=== PATIENT | female | born 1960 | race Caucasian/White ===

== ENCOUNTER 2016-06-22 20:42 | Inpatient (IN) | payer OTHER, MEDICAID ==
[~2016-06-22] VITALS: Ht 167.6 cm; Wt 113.4 kg
[2016-06-22 20:45] VITALS: BP 132/87
[2016-06-22] MEDS ORDERED: LORazepam 2 MG/ML VIAL ONE (20:50)
--- NOTE | 2016-06-22 21:03 | NUR ---
ADMINISTERED IVP ATIVAN 2MG PER ER MD MC. PATIENT TOLERATED WELL. NEW IV TO LEFT WRIST G#22. WILL CONTINUE TO MONITOR AND REASSESS
--- NOTE | 2016-06-22 21:16 | NUR ---
PT TAKEN TO BED 2
--- NOTE | 2016-06-22 21:18 | NUR ---
Dr. Hamilton evaluating patient at bedside.
[2016-06-22] MEDS ORDERED: LORazepam 2 MG/ML VIAL IVP ONE (21:25)
[2016-06-22] MEDS ORDERED: NACL 0.9% 1,000 ML IV ONE (21:25)
[2016-06-22] MEDS ORDERED: ONDANSETRON 4 MG/2 ML VIAL IVP PRN (23:00)
[2016-06-22] MEDS ORDERED: ACETAMINOPHEN 325 MG TAB PO PRN (23:00)
[2016-06-22] MEDS ORDERED: HYDROcodone/APAP 5/325 MG 1 TAB TAB PO PRN (23:00)
--- NOTE | 2016-06-22 23:31 | NUR ---
PT WILL GO TO 111B AND FRANCK WILL BE THE RN. REPORT WILL BE GIVEN BY [facility] ER NURSE TO FRANCK
[2016-06-22] MEDS ORDERED: TOBRADEX 0.1%-01 OIN LEFT EYE (23:35)
[2016-06-22] MEDS ORDERED: LIORESAL10 MG PO (23:35)
[2016-06-22] MEDS ORDERED: CRANBERRY450 MG PO (23:35)
[2016-06-22] MEDS ORDERED: ROPINIROLE2 MG PO (23:35)
[2016-06-22] MEDS ORDERED: LORAZEPAM0.5 M1 PO (23:35)
[2016-06-22] MEDS ORDERED: VITAMIN C500 M8 PO (23:35)
[2016-06-22] MEDS ORDERED: SINGULAIR10 MG PO (23:35)
[2016-06-22] MEDS ORDERED: ADVAIR DISKUS 21 DSK IH (23:35)
[2016-06-22] MEDS ORDERED: SYNTHROID0.125 M1 PO (23:35)
[2016-06-22] MEDS ORDERED: TEMAZEPAM30 MG PO (23:35)
[2016-06-22] MEDS ORDERED: COMPAZINE5 M3 PO (23:35)
[2016-06-22] MEDS ORDERED: OXCARBAZEPINE150 M1 PO (23:35)
[2016-06-22] MEDS ORDERED: ESCITALOPRAM20 MG PO (23:35)
[2016-06-22] MEDS ORDERED: TOPCARE IBUPRO200 MG PO (23:35)
[2016-06-22] MEDS ORDERED: TOBRADEX 0.1%-01 OIN OP (23:35)
[2016-06-22] MEDS ORDERED: LEVETIRACETAM500 MG PO (23:35)
[2016-06-22] MEDS ORDERED: DICLOFENAC SOD100 GM TP (23:35)
[2016-06-22] MEDS ORDERED: NORCO 325 MG-51 TAB PO (23:35)
[2016-06-22] MEDS ORDERED: ACETAMINOPHEN325 M2 PO (23:35)
[2016-06-22] MEDS ORDERED: NEURONTIN400 MG PO (23:35)
[2016-06-22] MEDS ORDERED: FUROSEMIDE20 M1 PO (23:35)
--- NOTE | 2016-06-23 00:10 | NUR ---
ADMITTED 55 Y/O FEMALE FROM ER TO TELE UNIT AT 0000 AM VIA GURNEY WITH DX: PERSISTENT SEIZURE. INITIAL ASSESSMENT, BODY CHECK AND ADMISSION INTERVENTION DONE. PATIENT IS STILL DROWSY UPON ADMISSION, EYES OPEN ONLY TACTILE STIMULI WITH MUMBLING SPEECH. NO S/S OF DISTRESS OR SEIZURE NOTED UPON ADMISSION. PATIENT CURRENTLY ON 11 L/MIN NON-REBREATHER MASK. SKIN WARM/DRY TO TOUCH WITH NORMAL COLOR AND INTACT. DISCUSSED PLAN OF CARE, PAIN MANAGEMENT AND MEDICATION REGIMEN WITH PATIENT, BUT PATIENT UNABLE TO COMPREHENSIVE. PLACED PATIENT ON SAFETY/FALL/SEIZURE/ASPIRATION PRECAUTIONS AND WILL CONTINUE TO MONITOR WITH BED ALARM ON.
[2016-06-23 00:19] VITALS: BP 106/58
--- NOTE | 2016-06-23 00:49 | NUR ---
ROUNDS MADE, SEEN PATIENT RESTED QUIETLY IN BED WITH BOTH EYES CLOSED. NO EPISODE OF SEIZURE NOR DISTRESS NOTED. KEPT PATIENT IN COMFORTABLE POSITION/WARM AND WILL CONTINUE TO MONITOR CLOSELY.
--- NOTE | 2016-06-23 01:30 | NUR ---
WEAN PATIENT OFF FROM THE NON-REBREATHER MASK INTO NASAL CANULA AT 3 L/MIN. MONITOR FOR 15 MINS AND PATIENT TOLERATED WELL. O2 SATURATION REMAINS WITHIN 96-97 %. WILL CONTINUE TO MONITOR.
--- NOTE | 2016-06-23 04:10 | NUR ---
PATIENT IS CLINICALLY STABLE WITH UNCHANGED V/S. NO S/S OF DISTRESS NOR ANY POTENTIAL COMPLICATION NOTED. MAINTAINED PROPER BODY ALIGNMENT AND WILL CONTINUE TO MONITOR.
[2016-06-23 04:51] VITALS: BP 110/69
--- NOTE | 2016-06-23 07:11 | NUR ---
PATIENT STILL SLEEPING AND NO S/S OF SEIZURE OR DISTRESS NOTED. ENDORSED PLAN OF CARE TO PATSY MORENO, AT BEDSIDE.
--- NOTE | 2016-06-23 07:13 | NUR ---
RECEIVED REPORT FROM NIGHT RN. PT SLEEPING IN BED. AAOX3. NO S/S OF ACUTE DISTRESS. PT DENIES PAIN. IV SITE PATENT AND INTACT. PT REORIENTED TO ROOM. CALL LIGHT WITHIN REACH. SEIZURE PRECAUTIONS IN PLACE. BED ALARM ON. WILL CONTINUE TO MONITOR.
[2016-06-23 07:46] VITALS: BP 103/73
--- NOTE | 2016-06-23 08:53 | NUR ---
NOTIFIED BY AGRICULTURE LABORER PT HAVING SEIZURE. UPON ENTERING THE ROOM PT IS RESPONSIVE. NO S/S OF ACUTE DISTRESS. ATIVAN GIVEN. DR. DUMONT MADE AWARE. VITAL SIGNS STABLE. CALL LIGHT WITHIN REACH. SAFETY MEASURES ENSURED. BED ALARM ON. SEIZURE PRECAUTIONS IN PLACE. WILL CONTINUE TO MONITOR.
[2016-06-23] MEDS: LORazepam 2 MG/ML VIAL IVP PRN ×3 (08:57→18:13)
--- NOTE | 2016-06-23 09:06 | NUR ---
PATIENT HAS BEEN SCREENED AND CATEGORIZED HIGH NUTRITION RISK. PATIENT WILL BE SEEN WITHIN 1-2 DAYS OF ADMISSION. 06/23/16-06/24/[address]
[2016-06-23] MEDS: levETIRAcetam 1,000 MG in NACL 0.9% 100 ML IV SCH ×2 (09:46→21:09)
--- NOTE | 2016-06-23 09:57 | NUR ---
PT SLEEPING IN BED. NO S/S OF ACUTE DISTRESS. IV SITE PATENT AND INTACT. ON O2 3L NC. VSS. CALL LIGHT WITHIN REACH. SAFETY MEASURES ENSURED. BED ALARM ON. SEIZURE PRECAUTIONS IN PLACE. WILL CONTINUE TO MONITOR.
--- NOTE | 2016-06-23 10:15 | NUR ---
PT NOTE RECIEVED ORDER FOR PT EVAL. PER CHARGE NURSE Pt HAD A SEIZURE EPISODE; HOLD PT EVAL FOR TODAY PER RN. WILL FOLLOW UP W/Pt TOMORROW. PVE(1)
[2016-06-23 12:00] VITALS: BP 109/71
--- NOTE | 2016-06-23 12:05 | NUR ---
PT SLEEPING IN BED. NO S/S OF ACUTE DISTRESS. IV SITE PATENT AND INTACT. CALL LIGHT WITHIN REACH. WILL CONTINUE TO MONITOR.
--- NOTE | 2016-06-23 13:47 | NUR ---
PT RESTING IN BED. NO S/S OF ACUTE DISTRESS. PT DENIES PAIN. CALL LIGHT WITHIN REACH. WILL CONTINUE TO MONITOR.
--- NOTE | 2016-06-23 14:57 | NUR ---
INFORMED BY TAILINGS MAN PT IS HAVING WHAT APPEARS TO BE A SEIZURE. UPON ENTERING ROOM PT IS RESPONSIVE TO QUESTIONS. NO S/S OF ACUTE DISTRESS. PT DENIES PAIN. ATIVAN WILL BE ADMINISTERED. VSS. CALL LIGHT WITHIN REACH. WILL CONTINUE TO MONITOR.
--- NOTE | 2016-06-23 15:57 | NUR ---
PT SLEEPING IN BED. NO S/S OF ACUTE DISTRESS. ON O2 3L NC. CALL LIGHT WITHIN REACH. BED ALARM ON. SEIZURE PRECAUTIONS IN PLACE. WILL CONTINUE TO MONITOR.
[2016-06-23 16:00] VITALS: BP 113/73
--- NOTE | 2016-06-23 18:13 | NUR ---
PT STATES LEGS ARE CRAMPING WHICH HAPPENS BEFORE SHE HAS A SEIZURE. ATIVAN GIVEN. NO S/S OF ACUTE DISTRESS. PT DENIES PAIN. CALL LIGHT WITHIN REACH. WILL CONTINUE TO MONITOR.
--- NOTE | 2016-06-23 19:25 | NUR ---
ENDORSED PLAN OF CARE TO NIGHT RN. PT REMAINS IN STABLE CONDITION.
--- NOTE | 2016-06-23 19:30 | NUR ---
RECEIVED PT FROM JOSH GARNER PT IS AAOX4 COOPERATIVE IV ON RT HAND INFILTRATED ON TELEMETRY SR NOT SEIZUZRES ACTIVITY AT THIS TIME SITTER AT BED SIDE 0862 INITIAL ASSESSMENT DONE
[2016-06-23 20:00] VITALS: BP 105/59
[2016-06-23] MEDS ORDERED: LORazepam 0.5 MG TAB PO SCH (20:45)
[2016-06-23] MEDS ORDERED: TEMAZEPAM 15 MG CAP PO SCH (21:00)
[2016-06-23] MEDS ORDERED: rOPINIRole 1 MG TAB PO SCH ×2 (21:00→21:55)
[2016-06-23] MEDS ORDERED: MONTELUKAST SODIUM 10 MG TAB PO SCH (21:00)
[2016-06-23] MEDS ORDERED: FLUTICASONE 250 MCG/SALMETEROL 50 MCG DISK IH SCH (21:00)
--- NOTE | 2016-06-23 21:55 | NUR ---
AWAKE AND ALERT POSITION ON LEFT SIDE RESPONSIVE TO PACKAGING [employer]ERIALS INSPECTOR VERBAL COMMANDS ON SUPPLEMENTAL OXYGEN AT 2 LPM VIA NC PATIENT C/O OF NASAL DRYNESS WITH OXYGEN USE ADDED HUMIDIFIER EDUCATION PROVIDED TO PATIENT WITH ACKNOWLEDGEMENT ON INCENTIVE SPIROMETRY (IS) TOLERATED THERAPY WELL WITHOUT INCIDENT ENCOURAGED PATIENT TO USE IS EVERY TWO HOURS WHILE AWAKE Addendum: 06/23/16 at 2208 by Dheeraj Cisneros RT NO EVIDENCE OF RESPIRATORY DISTRESS NOTED METERED DOSE INHALER NOTE REQUIRED AT THIS TIME
--- NOTE | 2016-06-23 22:00 | NUR ---
PT RESTING ON BED REPOSITIOEND Q2H NOT SEIZURES ACTIVITY NOTED SITTER AT BED SIDE ON TELE SR
[2016-06-23] MEDS: BACLOFEN 10 MG TAB PO SCH (23:23)
[2016-06-24] VITALS: BP 105/65
--- NOTE | 2016-06-24 01:09 | NUR ---
PT SLEEPING WELL NOT DISTRESS NOTED NOT SEIZURES ACTIVITY, ON TELEMETRY SR
--- NOTE | 2016-06-24 02:00 | NUR ---
CT HEAD NEG PT SLEEPING WELL NOT SEIZURES ACTIVITY NOTED
[2016-06-24 04:00] VITALS: BP 103/60
[2016-06-24] MEDS ORDERED: LORazepam 0.5 MG TAB PO PRN (04:40)
[2016-06-24] MEDS: BACLOFEN 10 MG TAB PO SCH ×2 (04:47→13:25)
--- NOTE | 2016-06-24 05:37 | NUR ---
SPONGE BATH GIVEN LINEN CHANGED ON TELE SR REPOSITIONED Q2H NOT DISTRESS NOTED REMAIN STABLE
--- NOTE | 2016-06-24 06:21 | NUR ---
PT SLEEPING REMAIN STBLE NOT SEIZURES ACTIVITY NOTED ON TELEMETRY SR
[2016-06-24] MEDS ORDERED: LEVOTHYROXINE 0.025 MG TAB PO SCH (06:30)
--- NOTE | 2016-06-24 07:30 | NUR ---
RECEIVED PATIENT REPORT. PATIENT ASLEEP IN BED WITH NO S/S OF DISTRESS NOTED. IV LINE NOTED TO THE LEFT FOREARM SALINE LOCKED. PATIENT WITH 1:1 SITTER. PATIENT ON TELE MONITORING. BED LOWERED WITH CALL LIGHT WITHIN REACH. WILL CONTINUE TO MONITOR
[2016-06-24 08:00] VITALS: BP 110/68
[2016-06-24] MEDS ORDERED: OXcarbazepine 150 MG TAB PO SCH (09:00)
[2016-06-24] MEDS ORDERED: ASCORBIC ACID 500 MG TAB PO SCH (09:00)
[2016-06-24] MEDS ORDERED: ESCITALOPRAM 20 MG TAB PO SCH (09:00)
[2016-06-24] MEDS ORDERED: FUROSEMIDE 20 MG TAB PO SCH (09:00)
[2016-06-24] MEDS ORDERED: GABAPENTIN 100 MG CAP PO SCH (09:00)
[2016-06-24] MEDS: levETIRAcetam 1,000 MG in NACL 0.9% 100 ML IV SCH (09:24)
[2016-06-24 12:00] VITALS: BP 107/64
[2016-06-24] MEDS ORDERED: CHLORHEXADINE GLUC 2% CLOTH TP SCH (12:00)
[2016-06-24] MEDS ORDERED: MUPIROCIN 2% OINT 22 GM TUBE TP SCH (12:00)
--- NOTE | 2016-06-24 13:25 | NUR ---
RECEIVED REPORT FROM CLARE GARNER; PT RESTING COMFORTABLY IN BED, AAOX4, ABLE TO VERBALIZE NEEDS; NO C/O PAIN OR S/S ACUTE DISTRESS AT THIS TIME. ASSISTED PT TO REPOSITION FOR COMFORT. ROUTINE/PLAN OF CARE DISCUSSED AND REVIEWED, PT VERBALIZES UNDERSTANDING AND COMPLIANCE; PT BEING EVALUATED BY DR HOGUE AT BEDSIDE. IV TO RIGHT FA, SITE ASYMPTOMATIC. SEIZURE AND SAFETY PRECAUTIONS OBSERVED AND MAINTAINED, CALL LIGHT IN REACH. 1:1 SITTER. WILL CONTINUE TO MONITOR.
--- NOTE | 2016-06-24 14:17 | NUR ---
06/24/16 RD INITIAL ASSESSMENT COMPLETED PLEASE REFER TO NUTRITION ASSESSMENT UNDER CARE ACTIVITY FOR ESTIMATED NUTRITIONAL NEEDS. RD RECOMMENDATIONS: 1. CONTINUE CARDIAC DIET TOLERATED PER MD -- PT MEETING 100% OF ESTIMATED KCAL AND PROTEIN NEEDS 2. RD WILL F/U 5-7 DAYS; LOW RISK. KELSY COSBY RD
[2016-06-24 15:15] VITALS: BP 118/80
--- NOTE | 2016-06-24 15:21 | NUR ---
1350 CALLED AND SPOKE WITH CARLOS DIRECTOR OF [facility] AND PT HAS BEEN ACCEPTED FOR ADMISSION TO ROOM 57A. REPORT CAN BE CALLED TO [phone]. 1400 MET WITH PT, PT'S FATHER JOYCE AND SISTER LUI WITH DR HOGUE PRESENT. INFORMED THEN OF PT'S ACCEPTANCE AT [facility] AND THEY ARE IN AGREEMENT WITH PT WILLING TO GO VOLUNTARILY. TRANSPORT WAS SET UP FOR [facility] BY [employer] [facility] [phone]. TRUST ADVISOR AT 1734
[2016-06-24] MEDS ORDERED: LEVETIRACETAM1000 MG PO (15:31)
[2016-06-24] MEDS ORDERED: BACTROBAN 2%20 MG/GM TP (15:34)
[2016-06-24] MEDS ORDERED: APLICARE ANTIS118 M2 TP (15:34)
[2016-06-24 16:00] VITALS: BP 118/80
--- NOTE | 2016-06-24 18:14 | NUR ---
DISCHARGED PT TO [facility] AT THIS TIME IN STABLE CONDITION VIA CARLITOS GUSMAN.
[2016-06-24] MEDS ORDERED: FLUTICASONE 250 MCG/SALMETEROL 50 MCG DISK IH SCH (21:00)
[2016-06-24] MEDS ORDERED: ROPINIROLE 2 MG PO SCH (21:00)
[2016-06-25] MEDS ORDERED: MUPIROCIN 2% OINT 22 GM TUBE TP SCH (09:00)
[2016-06-25] MEDS ORDERED: CHLORHEXADINE GLUC 2% CLOTH TP SCH (09:00)
== END 2016-06-24 18:10 | disposition short-term general hospital (02) | DRG 73 ==
LOC: MED 20:42 → MTU 23:06
PROVIDERS: ADMIT Student in an Organized Health Care Education/Training Program; ATTEND Student in an Organized Health Care Education/Training Program
DX: G90.9 Disorder of the autonomic nervous system, unspecified (principal); N17.0 Acute kidney failure with tubular necrosis; J98.11 Atelectasis; I45.2 Bifascicular block; Z68.41 Body mass index [BMI] 40.0-44.9, adult; G40.909 Epilepsy, unspecified, not intractable, without status epilepticus; D69.6 Thrombocytopenia, unspecified; J45.909 Unspecified asthma, uncomplicated; I10 Essential (primary) hypertension; E03.9 Hypothyroidism, unspecified; G25.81 Restless legs syndrome; G47.00 Insomnia, unspecified; F41.1 Generalized anxiety disorder; F25.0 Schizoaffective disorder, bipolar type; Z60.2 Problems related to living alone; M62.830 Muscle spasm of back; M25.371 Other instability, right ankle; Z22.322 Carrier or suspected carrier of Methicillin resistant Staphylococcus aureus; Z79.899 Other long term (current) drug therapy; Z88.0 Allergy status to penicillin; Z88.2 Allergy status to sulfonamides; Z88.8 Allergy status to other drugs, medicaments and biological substances

== ENCOUNTER 2017-01-26 20:54 | Emergency (ER) | payer OTHER, MEDICAID ==
[~2017-01-26] VITALS: Ht 167.6 cm; Wt 113.4 kg
[~2017-01-26 20:54] MED LIST: ACET-1182 PO; ACET-2869 PO; ASCO500T45 PO; BACL10TA4 PO; BACTO TP; CHLO118S2 TP; COM5 PO; CRAN450C PO; DICL100G5 TP; ESCI20TA47 PO; FLUT1DSK2 IH; FURO20TA8 PO; GABA400C PO; LEVE100021 PO; LEVO0.124 PO; LORA0.5T6 PO; MONT10TA35 PO; ROPI2TER3 PO; TEMA30CA12 PO; [UNRECOGNIZED DRUG - CODE] LEFT EYE; [UNRECOGNIZED DRUG - CODE] PO; [UNRECOGNIZED DRUG - CODE] PO
[2017-01-26 21:00] VITALS: BP 130/90
--- NOTE | 2017-01-26 21:01 | NUR ---
Lottie sahu in [facility] - 01/26/17 at 2102 by VITOR PT TAKEN TO BED 5
--- NOTE | 2017-01-26 21:02 | NUR ---
LISA VINCENT FROM [facility] BY [facility]. TAKEN TO BED 5
--- NOTE | 2017-01-26 21:12 | NUR ---
PT BIBA FROM [facility] C/O BILAT LEG PAIN X 1 WEEK WORSENING TODAY. PT STATES SHE HAS N/V/D. PT DENIES ANY SOB,CP AT THE MOMENT. PT IS ALERT AND ORIENTED. PT STATES SHE CANNOT AMBULATE. PT BREATHING IS UNLABORED AND CLEAR BILAT.
--- NOTE | 2017-01-26 21:19 | NUR ---
Dr. Pedro evaluating patient at bedside.
[2017-01-26] MEDS ORDERED: CYCLOBENZAPRINE 10 MG TAB PO ONE (21:20)
[2017-01-26] MEDS ORDERED: KETOROLAC 60 MG/2 ML VIAL IM ONE (21:20)
[2017-01-26 22:09] VITALS: BP 105/70
--- NOTE | 2017-01-26 22:10 | NUR ---
Patient discharged with v/s stable. Written and verbal after care instructions given and explained. Patient alert, oriented and verbalized understanding of instructions. Wheel Chair Assisted with to intermediate. All questions addressed prior to discharge. ID band removed. Patient advised to follow up with PMD. Rx of FLEXERIL 5MG given. Patient educated on indication of medication including possible reaction and side effects. Opportunity to ask questions provided and answered.
--- NOTE | 2017-01-26 22:14 | NUR ---
PT STATES SHE WANTS TO BE TRANSPORTED [place] AND STATES SHE WILL CALL FOR TRANSPORT.
== END 2017-01-26 22:10 | disposition home or self-care (01) ==
LOC: MED 20:54
DX: M62.838 Other muscle spasm (principal); M79.604 Pain in right leg; M79.605 Pain in left leg; I10 Essential (primary) hypertension; Z88.0 Allergy status to penicillin; Z88.1 Allergy status to other antibiotic agents; Z88.8 Allergy status to other drugs, medicaments and biological substances; Z79.899 Other long term (current) drug therapy
CPT/HCPCS: 96372; 99283; J1885

== ENCOUNTER 2017-07-18 21:51 | Inpatient (IN) | payer OTHER, MEDICAID ==
[~2017-07-18] VITALS: Ht 167.6 cm; Wt 108.9 kg
[~2017-07-18 21:51] MED LIST changes: +MOT200 PO; -[UNRECOGNIZED DRUG - CODE] PO
--- NOTE | 2017-07-18 21:54 | NUR ---
PT PATRICIA BLS. TAKEN TO BED 2
[2017-07-18 21:55] VITALS: BP 124/80
--- NOTE | 2017-07-18 22:05 | NUR ---
57 Y/O F BIBA W/C/O SOB, AND R SHOULDER PAIN X TODAY AND COUGH/ FEVER X 10 DAYS. MED Hx: pseudoseizures, psych, fibromyagia. Meds: Temazepam, Ativan, Zoloft, Buspar.
[2017-07-18] MEDS ORDERED: ALBUTEROL SULFATE/IPRATROPIU 3 ML SOL IH ONE (22:15)
--- NOTE | 2017-07-18 22:15 | NUR ---
RT CALLED AT BEDSIDE.
--- NOTE | 2017-07-18 22:33 | NUR ---
X-Ray at bedside.
[2017-07-18 23:18] LABS: BASOPHILS # (AUTO) 0.6 K/uL (0.00-0.22); BASOPHILS % (AUTO) 2.6 % (0.0-2.0); EOSINOPHILS # (AUTO) 0.3 K/uL (0-0.4); EOSINOPHILS % (AUTO) 1.1 % (0.0-4.0); HEMATOCRIT 38.4 % (36-48); HEMOGLOBIN 12.4 g/dL (12.0-16.0); LYMPHOCYTES # (AUTO) 3.1 K/uL (2.5-16.5); LYMPHOCYTES % (AUTO) 12.5 % (20.5-51.1); MEAN CORPUSCULAR HEMOGLOBIN 29 pg (27-31); MEAN CORPUSCULAR HGB CONC 32 g/dL (33-37); MEAN CORPUSCULAR VOLUME 89 fL (80-94); MONOCYTES # (AUTO) 0.5 K/uL (0.8-1.0); NEUTROPHILS % (AUTO) 81.8 % (42.2-75.2); PLATELET COUNT (AUTO) 184 K/uL (140-450); RED BLOOD CELL COUNT(AUTO) 4.31 MIL/uL (4.20-5.40); RED CELL DISTRIBUTION WIDTH 12.9 % (11.6-13.7); WHITE BLOOD COUNT (AUTO) 24.5 K/uL (4.8-10.8)
[2017-07-18 23:49] LABS: PROTHROMBIN TIME 11.2 secs (10.8-13.4)
--- NOTE | 2017-07-18 23:54 | NUR ---
RESIDENT LAB RESULTS CRITICAL LACTID ACID LAB OF 2.5. MD AWARE AWAITING NEW ORDERS.
[2017-07-19] MEDS ORDERED: NACL 0.9% 3,500 ML IV ONE
[2017-07-19] MEDS ORDERED: LEVOFLOXACIN 750 MG/D5W PREMIX 150 ML IV ONE
[2017-07-19 00:29] LABS: ANION GAP 19.2 (8-16); CARBON DIOXIDE 23.9 mmol/L (21-32); CREATININE 1.5 mg/dL (0.6-1.3); POTASSIUM 4.1 mmol/L (3.5-5.1)
[2017-07-19 00:36] LABS: ALBUMIN 2.3 g/dL (3.4-5.0); TOTAL BILIRUBIN 0.5 mg/dL (0.0-1.0)
[2017-07-19 01:04] LABS: APPEARANCE,URINE CLEAR (CLEAR); BILIRUBIN,URINE NEGATIVE (NEGATIVE); BLOOD, URINE NEGATIVE (NEGATIVE); COLOR,URINE YELLOW (YELLOW); LEUKOCYTE ESTERASE ,URINE NEGATIVE (NEGATIVE); NITRITE, URINE NEGATIVE (NEGATIVE); UGLUCOSE NEGATIVE (NEGATIVE)
[2017-07-19] MEDS ORDERED: KETOROLAC 30 MG/ML VIAL IVP ONE (01:05)
[2017-07-19] MEDS ORDERED: ALBUTEROL 0.083% 2.5 MG/3 ML NEBU INH ONE ×2 (01:35→08:03)
--- NOTE | 2017-07-19 01:37 | NUR ---
RT CALLED AT BEDSIDE.
[2017-07-19] MEDS ORDERED: ACETAMINOPHEN 325 MG TAB PO PRN (03:45)
[2017-07-19] MEDS ORDERED: HYDROcodone/APAP 5/325 MG 1 TAB TAB PO SCH (03:45)
[2017-07-19] MEDS: DEXT 5% /NACL 0.9% 1,000 ML IV SCH ×3 (03:55→23:55)
--- NOTE | 2017-07-19 04:26 | NUR ---
RESIDENT TRANSFERED TO 120B WITH TELEMONITORING VIA [facility] RELIEVING REPORT GIVEN TO FARZANA GARNER. RESIDENT IN STABLE CONDITION.
--- NOTE | 2017-07-19 05:19 | NUR ---
Lottie sahu in [facility] - 07/19/17 at 0545 by [facility] RESIDENT TRANSFERED TO 120B WITH TELEMONITORING VIA NASEEM MASON REPORT GIVEN TO FARZANA ROSA RESIDENT IN STABLE CONDITION.
[2017-07-19 06:41] VITALS: BP 131/74
--- NOTE | 2017-07-19 06:53 | NUR ---
PATIENT HAS BEEN SCREENED AND CATEGORIZED MODERATE NUTRITION RISK. PATIENT WILL BE SEEN WITHIN 3-5 DAYS OF ADMISSION. 07/21/17-07/23/17 MARIA ELENA LAMB MS, RDN
--- NOTE | 2017-07-19 07:30 | NUR ---
RECEIVED PT AA0X4. NO SOB NOTED, C/O PAIN AT THIS TIME. IV TO RT HAND PATENT AND INTACT. CHEST, DIMINISHED AIR ENTRY TO THE BASES, WHEEZING HEARD BILATERALLY NOTED ON UPPER LOBES. PT WITH OXYGEN AT 10 LITERS PER VIA SIMPLE MASK WITH SATS OF 97%. ABDOMEN SOFT, BOWEL SOUNDS PRESENT. INSTRUCTED PT TO CALL FOR ASSISTANCE, CALL LIGHT WITHIN REACH, PT VERBALIZED UNDERSTANDING.
[2017-07-19 08:00] VITALS: BP 122/76
--- NOTE | 2017-07-19 08:16 | NUR ---
FOUND PT ON SIMPLE MASK ON AT 8L. GAVE BREATHING TX BC SHE WAS SOB. ASCULTATED AND HEARD AN EXP WHEEZE IN THE UPPER AIRWAY. SWITCHED PT TO OXYMIZER 8LPM.
[2017-07-19] MEDS: TOBRAMYCIN/DEXAMETHASONE OPTH OINT 3.5 GM TUBE LEFT EYE SCH ×3 (09:00→18:36)
[2017-07-19] MEDS ORDERED: NON-FORMULARY ITEM (Fluticasone/Salmeterol* (Advair 250-50 Diskus*) 1 PUFF) IH SCH (09:00)
[2017-07-19] MEDS ORDERED: NON-FORMULARY ITEM (Levetiracetam 1,000 MG) PO SCH (09:00)
[2017-07-19] MEDS ORDERED: NON-FORMULARY ITEM (Levothyroxine Sodium (Synthroid) 1 TAB) PO SCH (09:00)
[2017-07-19] MEDS ORDERED: TOBRAMYCIN/DEXAMETHASONE OPTH OINT 3.5 GM TUBE LEFT EYE SCH (09:00)
[2017-07-19] MEDS: OXcarbazepine 150 MG TAB PO SCH (09:58)
[2017-07-19] MEDS: PROCHLORPERAZINE 5 MG TAB PO SCH (09:59)
[2017-07-19] MEDS: BACLOFEN 10 MG TAB PO SCH (09:59)
[2017-07-19] MEDS: IBUPROFEN 200 MG TAB PO PRN ×2 (09:59→13:52)
[2017-07-19] MEDS: GABAPENTIN 100 MG CAP PO SCH (09:59)
[2017-07-19] MEDS: FUROSEMIDE 20 MG TAB PO SCH (10:00)
[2017-07-19] MEDS: ASCORBIC ACID 500 MG TAB PO SCH (10:02)
[2017-07-19] MEDS: ESCITALOPRAM 20 MG TAB PO SCH (10:03)
[2017-07-19] MEDS: MONTELUKAST SODIUM 10 MG TAB PO SCH (10:03)
--- NOTE | 2017-07-19 10:30 | NUR ---
GREGORIO CATHETER INSERTED. PT TOLERATED PROCEDURE WELL. DRAINED 800 MLS OF CLEAR SLIGHTLY DARK MARTA URINE.
[2017-07-19] MEDS ORDERED: levETIRAcetam 500 MG TAB PO SCH (11:35)
[2017-07-19] MEDS ORDERED: LEVOTHYROXINE 0.1 MG, LEVOTHYROXINE 0.025 MG PO SCH ×2 (11:35)
[2017-07-19 12:00] VITALS: BP 110/52
[2017-07-19] MEDS ORDERED: MUPIROCIN 2% OINT 22 GM TUBE TP SCH (12:00)
[2017-07-19] MEDS: CHLORHEXADINE GLUC 2% CLOTH TP SCH (12:00)
[2017-07-19] MEDS: ALBUTEROL 0.083% 2.5 MG/3 ML NEBU INH SCH ×2 (12:26→19:50)
--- NOTE | 2017-07-19 12:34 | NUR ---
PLACED PT BACK ON OXYMIZER AT 8L AFTER TX. PT SATTING AT 94
[2017-07-19] MEDS: MUPIROCIN 2% OINT 22 GM TUBE TP SCH (13:48)
[2017-07-19] MEDS: CLINDAMYCIN 600 MG in DEXTROSE 5% 50 ML IV SCH ×2 (13:48→20:35)
[2017-07-19] MEDS: methylPREDNISolone SS 40 MG/ML VIAL IVP SCH ×2 (13:51→19:04)
--- NOTE | 2017-07-19 14:03 | NUR ---
INFLUENZA A&B COLLECTED AND WILL SEND TO LAB.
[2017-07-19 16:00] VITALS: BP 114/57
--- NOTE | 2017-07-19 16:25 | NUR ---
PT RESTING. NO SOB NOTED. NO SIGN SOF PAIN AT THIS TIME.
--- NOTE | 2017-07-19 19:00 | NUR ---
PT ACCIDENTALLY PULLED OUT PRESENT IV, RESTARTED A NEW LINE ON RT HAND WITH GAUGE 22. PT AWAKE. NO C/O PAIN AT THIS TIME. WILL ENDORSE TO NEXT SHIFT NURSE FOR CONTINUITY OF CARE.
--- NOTE | 2017-07-19 19:05 | NUR ---
RECEIVED REPORT FROM DAY SHIFT NURSE. AAOX4. PT ON O2 AT 8L VIA OXYMIZER. IV TO RIGHT HAND #22G, NS AT 100 ML/HR. NO ACUTE DISTRESS NOTED. GREGORIO CATH IN PLACE DRAINING DARK YELLOW URINE. SKIN INTACT. DISCUSSED PLAN OF CARE, PT VERBALIZED UNDERSTANDING. SAFETY PRECAUTION IN PLACE. CALL LIGHT WITHIN REACH. WILL CONTINUE TO MONITOR.
[2017-07-19 20:00] VITALS: BP 143/82
[2017-07-19] MEDS: rOPINIRole 1 MG TAB PO SCH (20:36)
[2017-07-19] MEDS: OSELTAMIVIR PHOSPHATE 75 MG CAP PO SCH (20:36)
[2017-07-19] MEDS: levETIRAcetam 500 MG TAB PO SCH (20:36)
--- NOTE | 2017-07-19 20:45 | NUR ---
DUE MEDS GIVEN. PT TOLERATED WELL. NO C/O PAIN OR DISCOMFORT. NO RESP DISTRESS NOTED. CALL LIGHT WITHIN REACH.
[2017-07-19] MEDS ORDERED: ROPINIROLE HCL 2 MG PO SCH (21:00)
[2017-07-19] MEDS ORDERED: methylPREDNISolone SS 40 MG/ML VIAL IVP SCH (21:00)
--- NOTE | 2017-07-19 23:58 | NUR ---
RECEIVED A CALL FROM LAB. BLOOD CULTURE- GRAM NEGATIVE RODS. WILL PAGE DR. LOZANO.
[2017-07-20] VITALS: BP 121/71
[2017-07-20] MEDS ORDERED: LEVOFLOXACIN 250 MG/D5 PREMIX 50 ML IV SCH
[2017-07-20] MEDS ORDERED: LEVOFLOXACIN 500 MG/D5W PREMIX 100 ML IV SCH
--- NOTE | 2017-07-20 00:02 | NUR ---
PAGED DR. Aditya LOZANO. WAITING FOR CALL BACK.
[2017-07-20] MEDS: methylPREDNISolone SS 40 MG/ML VIAL IVP SCH ×4 (00:12→17:46)
--- NOTE | 2017-07-20 00:30 | NUR ---
NO CALL BACK FROM DR. Aditya LOZANO. PAGED 4 TIMES. WILL PAGE AGAIN.
--- NOTE | 2017-07-20 00:50 | NUR ---
RECEIVED CALL BACK FROM DR. LOZANO. MADE AWARE OF GRAM POSITIVE RODS. NO NEW ORDER.
[2017-07-20] MEDS: HYDROcodone/APAP 5/325 MG 1 TAB TAB PO PRN ×2 (01:10→11:48)
[2017-07-20] MEDS: ALBUTEROL 0.083% 2.5 MG/3 ML NEBU INH SCH ×4 (01:14→19:25)
[2017-07-20 04:00] VITALS: BP 118/71
[2017-07-20] MEDS: CLINDAMYCIN 600 MG in DEXTROSE 5% 50 ML IV SCH (04:34)
[2017-07-20] MEDS: LORazepam 0.5 MG TAB PO PRN (04:34)
--- NOTE | 2017-07-20 04:36 | NUR ---
PT STATED THAT SHE'S STARTING TO FEEL ANXIOUS/AGITATED. ATIVAN 1 MG PO GIVEN. NO C/O PAIN OR SOB. ALL NEEDS MET AT THIS TIME. CALL LIGHT WITHIN REACH.
--- NOTE | 2017-07-20 05:45 | NUR ---
PT SLEEPING BUT EASILY AROUSABLE. NO S/S OF DISTRESS. SAFETY PRECAUTION IN PLACE. CALL LIGHT WITHIN REACH.
[2017-07-20] MEDS: LEVOTHYROXINE 0.1 MG, LEVOTHYROXINE 0.025 MG PO SCH ×2 (06:12)
[2017-07-20 07:00] LABS: HEMATOCRIT 32.9 % (36-48); HEMOGLOBIN 11.2 g/dL (12.0-16.0); MEAN CORPUSCULAR HEMOGLOBIN 30 pg (27-31); MEAN CORPUSCULAR HGB CONC 34 g/dL (33-37); MEAN CORPUSCULAR VOLUME 88 fL (80-94); PLATELET COUNT (AUTO) 161 K/uL (140-450); RED BLOOD CELL COUNT(AUTO) 3.72 MIL/uL (4.20-5.40); RED CELL DISTRIBUTION WIDTH 12.9 % (11.6-13.7); WHITE BLOOD COUNT (AUTO) 23.9 K/uL (4.8-10.8)
--- NOTE | 2017-07-20 07:20 | NUR ---
ENDORSED PT TO DAY SHIFT NURSE. PT IN STABLE CONDITION.
--- NOTE | 2017-07-20 07:21 | NUR ---
RECEIVED REPORT FROM OVERSIZE LOAD PILOT ESCORT NURSE AT BEDSIDE FOR CONTINUITY OF CARE. PATIENT AAOX4. PT ON O2 8L VIA OXYMIZER. IV TO RIGHT HAND #22G, D5 NS AT 100 ML/HR. NO ACUTE DISTRESS NOTED. GREGORIO CATH IN PLACE DRAINING DARK YELLOW URINE. SKIN INTACT. DISCUSSED PLAN OF CARE, PT VERBALIZED UNDERSTANDING. UPDATED BOARD. SAFETY AND ISOLATION PRECAUTION IN PLACE. CALL LIGHT WITHIN REACH. WILL CONTINUE TO MONITOR PATIENT.
[2017-07-20 07:30] LABS: LYMPHOCYTES % (MANUAL) 23 % (20-46); MONOCYTES % (MANUAL) 5 % (5-12)
[2017-07-20 07:39] LABS: ALBUMIN 1.7 g/dL (3.4-5.0); ANION GAP 12.7 (8-16); CARBON DIOXIDE 26.9 mmol/L (21-32); CREATININE 0.8 mg/dL (0.6-1.3); POTASSIUM 3.6 mmol/L (3.5-5.1); TOTAL BILIRUBIN 0.3 mg/dL (0.0-1.0)
[2017-07-20 07:40] LABS: MAGNESIUM 2.2 mg/dL (1.8-2.4); PHOSPHORUS 2.9 mg/dL (2.5-4.9)
[2017-07-20 08:00] VITALS: BP 130/77
[2017-07-20] MEDS: MONTELUKAST SODIUM 10 MG TAB PO SCH (08:31)
[2017-07-20] MEDS: levETIRAcetam 500 MG TAB PO SCH ×2 (08:31→21:06)
[2017-07-20] MEDS: OSELTAMIVIR PHOSPHATE 75 MG CAP PO SCH (08:31)
--- NOTE | 2017-07-20 08:31 | NUR ---
ORDERED MEDICATION ADMINISTERED. PATIENT TOLERATED THEM WELL. TOBRODEX OINTMENT NOT FOUND IN PATIENT'S CASSETTE OR YELLOW BIN. PHARMACY WAS INFORMED. THEY SAID TO CHECK PATIENT'S ROOM. CHECKED PATIENT'S ROOM, OINTMENT NOT FOUND. WILL FOLLOW UP WITH PHARMACY. PATIENT RESTING IN BED, RESPIRATIONS EVEN AND UNLABORED. NO SIGNS OF DISTRESS OR SOB NOTED. SAFETY AND ISOLATION PRECAUTION IN PLACE, BED ON LOWEST SETTING, BED ALARM ON, CALL LIGHT WITHIN REACH. WILL CONTINUE TO MONITOR PATIENT.
[2017-07-20] MEDS: ESCITALOPRAM 20 MG TAB PO SCH (08:32)
[2017-07-20] MEDS: GABAPENTIN 100 MG CAP PO SCH (08:32)
[2017-07-20] MEDS: FUROSEMIDE 20 MG TAB PO SCH (08:32)
[2017-07-20] MEDS: ASCORBIC ACID 500 MG TAB PO SCH (08:33)
[2017-07-20] MEDS: OXcarbazepine 150 MG TAB PO SCH (08:33)
[2017-07-20] MEDS: PROCHLORPERAZINE 5 MG TAB PO SCH (08:33)
[2017-07-20] MEDS: BACLOFEN 10 MG TAB PO SCH (08:33)
[2017-07-20] MEDS: TOBRAMYCIN/DEXAMETHASONE OPTH OINT 3.5 GM TUBE LEFT EYE SCH ×3 (10:16→17:46)
--- NOTE | 2017-07-20 10:16 | NUR ---
PHARMACY GAVE NEW TOBRODEX OINTMENT FOR PATIENT D/T OLD ONE NOT BEING FOUND IN PATIENT'S ROOM, YELLOW BIN, OR CASSETTE. OINTMENT APPLIED. PATIENT TOLERATED IT WELL. RESPIRATIONS EVEN AND UNLABORED. NO SIGNS OF DISTRESS OR SOB NOTED. PATIENT REQUESTED ONLY SOUP, BROTH, FLUIDS, PUDDING, JELLO OR SOFT FOODS FOR HER MEALS. HER WISHES WERE GIVEN TO DIETARY. SAFETY AND ISOLATION PRECAUTION IN PLACE, BED ON LOWEST SETTING, BED ALARM ON, CALL LIGHT WITHIN REACH. WILL CONTINUE TO MONITOR PATIENT.
[2017-07-20] MEDS: CHLORHEXADINE GLUC 2% CLOTH TP SCH (11:47)
[2017-07-20] MEDS: MUPIROCIN 2% OINT 22 GM TUBE TP SCH (11:47)
--- NOTE | 2017-07-20 11:47 | NUR ---
ORDERED MEDICATIONS ADMINISTERED. PATIENT TOLERATED THEM WELL. PATIENT RESTING IN BED WATCHING TV, RESPIRATIONS EVEN AND LABORED. PATIENT DENIES CHEST PAIN OR SOB. O2 SAT AT 95% ON 8L OXYMIZER. CALLED RT FOR PATIENT'S BREATHING TREATMENT. NO SIGNS OF DISTRESS NOTED. SAFETY AND ISOLATION PRECAUTION IN PLACE, BED ON LOWEST SETTING, BED ALARM ON, CALL LIGHT WITHIN REACH. WILL CONTINUE TO MONITOR PATIENT. Addendum: 07/20/17 at 2022 by Romero Mccabe RN NORCO PRN ADMINISTERED FOR 6/10 BACK PAIN. Addendum: 07/20/17 at 2032 by Romero Mccabe RN DR. RICHARDS IN TO SEE THE PATIENT. HE UPDATED HER WITH PLAN OF CARE, SHE VERBALIZED UNDERSTANDING.
[2017-07-20 12:00] VITALS: BP 141/82
[2017-07-20] MEDS: DEXT 5% /NACL 0.9% 1,000 ML IV SCH (13:00)
[2017-07-20] MEDS: MEROPENEM 1,000 MG in NACL 0.9% 100 ML IV SCH ×2 (13:07→21:10)
--- NOTE | 2017-07-20 15:45 | NUR ---
PATIENT RESTING IN BED, NO SIGNS OF DISTRESS OR SOB NOTED. SAFETY, ISOLATION, AND SEIZURE PRECAUTION IN PLACE, CALL LIGHT WITHIN REACH, WILL CONTINUE TO MONITOR PATIENT.
[2017-07-20 16:00] VITALS: BP 119/83
--- NOTE | 2017-07-20 16:45 | NUR ---
PATIENT HAD WITNESS SEIZURE, DR. Ginger RICHARDS CALLED. HE ORDERED ATIVAN 1MG IVP PRN FOR BREAKTHROUGH SEIZURES Q4H. AWAITING PHARMACY'S ACKNOWLEDGEMENT. PATIENT CURRENTLY RESTING IN BED, VITAL SIGNS WNL. SAFETY, ISOLATION, AND SEIZURE PRECAUTION IN PLACE, CALL LIGHT WITHIN REACH. WILL CONTINUE TO MONITOR PATIENT.
[2017-07-20] MEDS: LORazepam 2 MG/ML VIAL IVP PRN (17:12)
--- NOTE | 2017-07-20 17:15 | NUR ---
ATIVAN IVP PRN FOR BREAKTHROUGH SEIZURES ADMINISTERED. PATIENT TOLERATED IT WELL. SAFETY, ISOLATION, AND SEIZURE PRECAUTION IN PLACE, CALL LIGHT WITHIN REACH. WILL CONTINUE TO MONITOR PATIENT.
--- NOTE | 2017-07-20 19:45 | NUR ---
REPORT GIVEN TO INDUSTRIAL STAFF NURSE NURSE AT BEDSIDE FOR CONTINUITY OF CARE. PATIENT IN STABLE CONDITION.
--- NOTE | 2017-07-20 19:46 | NUR ---
RECEIVED PT FROM RUBY RN PT IS AAOXR ON 8 LTS OXYMIZER ON TELMETRY SR IV ON RT HAND INFUSING WELL, GREGORIO CATH DRAINING WELL YELLOW URINE REPOSITIONED INITIAL ASSESSMENT DONE
[2017-07-20 20:00] VITALS: BP 125/80
--- NOTE | 2017-07-20 21:00 | NUR ---
PT ON BREATHING TX NOT DISTRESS NOTED REPOSITIONED Q2N
[2017-07-20] MEDS: ALBUTEROL 0.083% 2.5 MG/3 ML NEBU INH PRN (21:06)
[2017-07-20] MEDS: rOPINIRole 1 MG TAB PO SCH (21:07)
[2017-07-21] VITALS: BP 130/72
--- NOTE | 2017-07-21 | NUR ---
PT AWAKE DENIES ANY PAIN ON TELMETRY ST REPOSITIONED Q2H ON OXYMIZER 8 LTS
[2017-07-21] MEDS: methylPREDNISolone SS 40 MG/ML VIAL IVP SCH ×4 (00:08→17:22)
[2017-07-21] MEDS: DEXT 5% /NACL 0.9% 1,000 ML IV SCH ×3 (00:10→11:09)
[2017-07-21] MEDS: ALBUTEROL 0.083% 2.5 MG/3 ML NEBU INH SCH ×4 (01:07→19:22)
[2017-07-21] MEDS: MORPHINE SULFATE 2 MG/ML SYR IVP PRN ×3 (01:24→17:22)
--- NOTE | 2017-07-21 02:42 | NUR ---
AFTER PAIN MEDIC GIVEN PT SLEEP QUIET NOT DISTRESS NOTED ON TELEMETRY ST
[2017-07-21 04:00] VITALS: BP 149/78
[2017-07-21] MEDS: MEROPENEM 1,000 MG in NACL 0.9% 100 ML IV SCH ×3 (06:05→21:44)
[2017-07-21] MEDS: LEVOTHYROXINE 0.1 MG, LEVOTHYROXINE 0.025 MG PO SCH ×2 (06:08)
[2017-07-21] MEDS: HYDROcodone/APAP 5/325 MG 1 TAB TAB PO PRN ×2 (06:09→10:45)
--- NOTE | 2017-07-21 07:10 | NUR ---
PT IS ENDORSED TO HI FOR CONTINUITY OF CARE
--- NOTE | 2017-07-21 07:11 | NUR ---
RECEIVED REPORT FROM OVER HAULER HELPER NURSE AT BEDSIDE FOR CONTINUITY OF CARE. PATIENT AAOX4. PT ON O2 8L VIA OXYMIZER. IV TO RIGHT HAND #22G, D5 NS AT 100 ML/HR. NO ACUTE DISTRESS NOTED. GREGORIO CATH IN PLACE DRAINING DARK YELLOW URINE. SKIN INTACT. DISCUSSED PLAN OF CARE, PT VERBALIZED UNDERSTANDING. UPDATED BOARD. SAFETY, SEIZURE, AND ISOLATION PRECAUTION IN PLACE. CALL LIGHT WITHIN REACH. WILL CONTINUE TO MONITOR PATIENT.
[2017-07-21 07:15] LABS: HEMATOCRIT 33.8 % (36-48); HEMOGLOBIN 11.2 g/dL (12.0-16.0); MEAN CORPUSCULAR HEMOGLOBIN 30 pg (27-31); MEAN CORPUSCULAR HGB CONC 33 g/dL (33-37); MEAN CORPUSCULAR VOLUME 89 fL (80-94); PLATELET COUNT (AUTO) 200 K/uL (140-450); RED BLOOD CELL COUNT(AUTO) 3.79 MIL/uL (4.20-5.40); RED CELL DISTRIBUTION WIDTH 13.3 % (11.6-13.7)
[2017-07-21 07:17] LABS: ANION GAP 13.2 (8-16); CARBON DIOXIDE 25.2 mmol/L (21-32); CREATININE 0.9 mg/dL (0.6-1.3); POTASSIUM 3.4 mmol/L (3.5-5.1)
--- NOTE | 2017-07-21 07:49 | NUR ---
AWAKE AND ALERT RESPONSIVE SATURATION 95% ON SUPPLEMENTAL OXYGEN AT 6 LPM VIA OXYMIZER POST HHH THERAPY TITRATED FIO2 TO 5 LPM [place]/RN TO BE NOTIFIED
[2017-07-21 08:00] VITALS: BP 129/87
[2017-07-21] MEDS: PROCHLORPERAZINE 5 MG TAB PO SCH (08:33)
[2017-07-21] MEDS: BACLOFEN 10 MG TAB PO SCH (08:33)
[2017-07-21] MEDS: ASCORBIC ACID 500 MG TAB PO SCH (08:33)
[2017-07-21] MEDS: levETIRAcetam 500 MG TAB PO SCH ×2 (08:33→21:42)
--- NOTE | 2017-07-21 08:33 | NUR ---
PT C/O 11/17 BACK PAIN, MORPHINE PRN GIVEN. ORDERED MEDICATIONS ADMINISTERED. PATIENT TOLERATED THEM WELL. PATIENT NOW RESTING IN BED COMFORTABLY, SAFETY AND ISOLATION PRECAUTION IN PLACE, CALL LIGHT WITHIN REACH, WILL CONTINUE TO MONITOR PATIENT.
[2017-07-21] MEDS: OXcarbazepine 150 MG TAB PO SCH (08:34)
[2017-07-21] MEDS: FUROSEMIDE 20 MG TAB PO SCH (08:34)
[2017-07-21] MEDS: MONTELUKAST SODIUM 10 MG TAB PO SCH (08:35)
[2017-07-21] MEDS: TOBRAMYCIN/DEXAMETHASONE OPTH OINT 3.5 GM TUBE LEFT EYE SCH ×3 (08:35→17:21)
[2017-07-21 08:45] LABS: WHITE BLOOD COUNT (AUTO) 34.1 K/uL (4.8-10.8)
[2017-07-21 08:46] LABS: LYMPHOCYTES % (MANUAL) 30 % (20-46); MONOCYTES % (MANUAL) 9 % (5-12)
--- NOTE | 2017-07-21 09:00 | NUR ---
PHONE DR. RICHARDS TO INFORM HIM OF PATIENT'S CRITICAL LAB, WBC OF 34.1. DR. RICHARDS AWARE. AWAITING NEW ORDERS.
--- NOTE | 2017-07-21 10:20 | NUR ---
SPOKE TO PATIENT'S SISTER, UPDATED HER ON PT'S STATUS AND PLAN OF CARE, SHE VERBALIZED UNDERSTANDING. PATIENT CURRENTLY RESTING IN BED, C/O 6/10 PAIN, WILL MEDICATE PATIENT. SAFETY AND ISOLATION PRECAUTION IN PLACE, CALL LIGHT WITHIN REACH. WILL CONTINUE TO MONITOR PATIENT.
[2017-07-21] MEDS ORDERED: GABAPENTIN 100 MG CAP ONE ×2 (10:27→10:28)
[2017-07-21] MEDS: ESCITALOPRAM 20 MG TAB PO SCH (10:44)
[2017-07-21] MEDS ORDERED: GABAPENTIN 600 MG, GABAPENTIN 200 MG PO SCH ×2 (11:00)
[2017-07-21] MEDS: CHLORHEXADINE GLUC 2% CLOTH TP SCH (11:06)
[2017-07-21] MEDS: MUPIROCIN 2% OINT 22 GM TUBE TP SCH (11:06)
--- NOTE | 2017-07-21 11:06 | NUR ---
ORDERED MEDICATIONS ADMINISTERED. PATIENT RESTING IN BED, NO SIGNS OF DISTRESS OR SOB NOTED. PATIENT DENIES PAIN AT THIS TIME. SAFETY AND ISOLATION PRECAUTION IN PLACE, CALL LIGHT WITHIN REACH. WILL CONTINUE TO MONITOR PATIENT Addendum: 07/21/17 at 1945 by Romero Mccabe RN PT C/O 5/10 BACK PAIN, NORCO PRN GIVEN. PATIENT TOLERATED IT WELL.
[2017-07-21 12:00] VITALS: BP 132/76
--- NOTE | 2017-07-21 12:51 | NUR ---
ORDERED MEDICATIONS GIVEN. PATIENT TOLERATED IT WELL. PATIENT RESTING IN BED WATCHING TV. NO SIGNS OF DISTRESS OR SOB NOTED. PATIENT DENIES PAIN. SAFETY, ISOLATION, AND SEIZURE PRECUATION IN PLACE, CALL LIGHT WITHIN REACH. WILL CONTINUE TO MONITOR PATIENT.
--- NOTE | 2017-07-21 15:15 | NUR ---
DR. QUEEN CAME IN TO SEE THE PATIENT. HE IS AWARE OF PATIENT'S COUGH AND REQUEST FOR MEDICATION FOR IT. PATIENT'S FLUIDS HAVE BEEN DISCONTINUED. PATIENT RESTING IN BED, SAFETY AND ISOLATION PRECAUTION IN PLACE, CALL LIGHT WITHIN REACH, WILL CONTINUE TO MONITOR PATIENT. Addendum: 07/21/17 at 1942 by Romero Mccabe RN DR. LOZANO, NOT DR. QUEEN.
[2017-07-21 16:00] VITALS: BP 126/67
--- NOTE | 2017-07-21 19:25 | NUR ---
REPORT GIVEN TO GRIPPER ATTACHER NURSE AT BEDSIDE FOR CONTINUITY OF CARE. PATIENT IN STABLE CONDITION.
--- NOTE | 2017-07-21 19:27 | NUR ---
RECEIVED PT FROM RUBY RN PT RESTING ON BED AAOX4 ON TELEMETRY SR ON OXYMIZER 8 LTS HL ON RT HAND PATENT , REPOSITIONED GREGORIO CATH DRAINING WELL YELLOW URINE INITIAL ASSESSMENT DONE
[2017-07-21 20:00] VITALS: BP 139/80
[2017-07-21] MEDS: rOPINIRole 1 MG TAB PO SCH (21:43)
[2017-07-21] MEDS: LORazepam 0.5 MG TAB PO PRN (21:59)
--- NOTE | 2017-07-21 22:45 | NUR ---
AFTER MEDIC GIVEN PT SLEEP QUIET NOT DISTRESS NOTED
[2017-07-22] VITALS (8 sets, daily range): BP systolic 126–147; BP diastolic 74–97
[2017-07-22] MEDS: methylPREDNISolone SS 40 MG/ML VIAL IVP SCH ×3 (00:41→11:30)
[2017-07-22] MEDS: ALBUTEROL 0.083% 2.5 MG/3 ML NEBU INH SCH ×4 (01:54→19:05)
--- NOTE | 2017-07-22 01:58 | NUR ---
;PT SLEEPING WELL NOT DISTRESS NOTED REPOSITIONED Q2H ON TELMETRY SR NOT DISTRESS NOTED
--- NOTE | 2017-07-22 04:00 | NUR ---
SPONGE BATH GIVEN LINEN CHANGED NOT SOB NOTED REPOSITIONED Q2H
[2017-07-22] MEDS: MEROPENEM 1,000 MG in NACL 0.9% 100 ML IV SCH ×3 (05:14→21:56)
[2017-07-22] MEDS: LEVOTHYROXINE 0.1 MG, LEVOTHYROXINE 0.025 MG PO SCH ×2 (06:04)
[2017-07-22] MEDS: HYDROcodone/APAP 5/325 MG 1 TAB TAB PO PRN (06:11)
--- NOTE | 2017-07-22 07:00 | NUR ---
PT WATCHING REMAIN STABLE IS ENDORSED TO RAMITERRE FOR CONTINUITY OF CARE
[2017-07-22 07:02] LABS: HEMATOCRIT 35.4 % (36-48); HEMOGLOBIN 11.8 g/dL (12.0-16.0); MEAN CORPUSCULAR HEMOGLOBIN 30 pg (27-31); MEAN CORPUSCULAR HGB CONC 33 g/dL (33-37); MEAN CORPUSCULAR VOLUME 89 fL (80-94); PLATELET COUNT (AUTO) 202 K/uL (140-450); RED BLOOD CELL COUNT(AUTO) 3.96 MIL/uL (4.20-5.40)
[2017-07-22 07:04] LABS: ANION GAP 10.8 (8-16); CARBON DIOXIDE 31.5 mmol/L (21-32); CREATININE 0.7 mg/dL (0.6-1.3); POTASSIUM 4.3 mmol/L (3.5-5.1)
--- NOTE | 2017-07-22 07:11 | NUR ---
ASSUMED CONTINUITY OF CARE. NO SIGNS AND SYMPTOMS OF ACUTE DISTRESS NOTED. INITIAL ASSESSMENT DONE. KEEP COMFORTABLE ON BED. EXPLAINED DIAGNOSIS, PLAN OF CARE, PAIN MANAGEMENT TEACHING, CONTACT ISOLATION PRECAUTION, USE OF CALL LIGHT/BED/TV/BATHROOM. VERBALIZED UNDERSTANDING. SEIZURE AND FALL PRECAUTION APPLIED. CALL LIGHT WITHIN REACH.
--- NOTE | 2017-07-22 07:40 | NUR ---
PATIENT AWAKE AND ALERT. TOLERATING TX WELL. NO RESPIRATORY DISTRESS NOTED AT THIS TIME.
[2017-07-22 07:41] LABS: WHITE BLOOD COUNT (AUTO) 34.8 K/uL (4.8-10.8)
[2017-07-22] MEDS: ASCORBIC ACID 500 MG TAB PO SCH (08:55)
[2017-07-22] MEDS: GABAPENTIN 600 MG, GABAPENTIN 200 MG PO SCH ×2 (08:55)
[2017-07-22] MEDS: PROCHLORPERAZINE 5 MG TAB PO SCH (08:55)
[2017-07-22] MEDS: levETIRAcetam 500 MG TAB PO SCH ×2 (08:55→21:55)
[2017-07-22] MEDS: ESCITALOPRAM 20 MG TAB PO SCH (08:55)
[2017-07-22 08:56] LABS: LYMPHOCYTES % (MANUAL) 26 % (20-46); MONOCYTES % (MANUAL) 5 % (5-12)
[2017-07-22] MEDS: FUROSEMIDE 20 MG TAB PO SCH (08:56)
[2017-07-22] MEDS: TOBRAMYCIN/DEXAMETHASONE OPTH OINT 3.5 GM TUBE LEFT EYE SCH ×3 (08:56→16:39)
[2017-07-22] MEDS: BACLOFEN 10 MG TAB PO SCH (08:56)
[2017-07-22] MEDS: OXcarbazepine 150 MG TAB PO SCH (08:56)
[2017-07-22] MEDS: MONTELUKAST SODIUM 10 MG TAB PO SCH (08:56)
[2017-07-22] MEDS: MUPIROCIN 2% OINT 22 GM TUBE TP SCH (13:09)
[2017-07-22] MEDS: CHLORHEXADINE GLUC 2% CLOTH TP SCH (13:09)
--- NOTE | 2017-07-22 13:20 | NUR ---
RT REPORTED THAT PT. HAD SEIZURE DURING BREATHING TREATMENT. KEEP PT. FREE FROM INJURY. WILL MEDICATE PER MD ORDER. INFORMED CHARGE NURSE ESTHER NI.
[2017-07-22] MEDS: LORazepam 2 MG/ML VIAL IVP PRN ×2 (13:23→20:57)
--- NOTE | 2017-07-22 13:24 | NUR ---
UPON ARRIVAL PATIENT AWAKE, ALERT AND ORIENTED. PATIENT VERBALLY RESPONSIVE AND COHERENT. BEGAN TREATMENT AT 1311. PATIENT BEGAN SEIZING AT 1317. TERMINATED TX AND NOTIFIED NURSE. RN AT BEDSIDE. PATIENT PLACED BY ON 4L NC.
--- NOTE | 2017-07-22 13:40 | NUR ---
CALM, AND QUIET AT THIS TIME. NO ACUTE DISTRESS NOTED. KEEP ENVIRONMENT SAFE. SEIZURE PRECAUTION APPLIED. WILL MONITOR.
--- NOTE | 2017-07-22 14:00 | NUR ---
RESTING ON BED COMFORTABLY. AWAKE, ALERT, AND ORIENTED X3. SPEECH CLEAR. NO C/O PAIN. NO SOB, NOTED. CONTINUE MONITORING.
--- NOTE | 2017-07-22 17:35 | NUR ---
SLEEPING WELL. NO DISCOMFORT NOTICED. KEEP FREE FROM FALL. FALL PRECAUTION APPLIED. CALL LIGHT WITHIN REACH.
--- NOTE | 2017-07-22 19:09 | NUR ---
PT ON 4 L NC WITH HUMIDIFICATION. CLEAR BREATH SOUNDS. HHN TX OF ALBUTEROL GIVEN. NO ADVERSE REACTION. TOLERATED TX WELL. PT AWAKE AND ALERT. NO SOB OR DISTRESS NOTED. WILL CONTINUE TO MONITOR.
--- NOTE | 2017-07-22 19:12 | NUR ---
BEDSIDE REPORT GIVEN TO HELDER NI. IVF INFUSING AT TKO WELL. IV ACCESS INTACT AND PATENT. IN STABLE CONDITION.
--- NOTE | 2017-07-22 19:13 | NUR ---
RECEIVED BEDSIDE REPORT FROM DAY SHIFT NURSE PARDEEP ALEXANDRA, PT STABLE, NO DISTRESS NOTED IV TO R HAND 22G SL PATENT, PT ON 4LPM O2 VIA NC, NO SOB, GREGORIO IN PLACE DRAINING YELLOW URINE WITH SEDIMENT, INITIAL ASSESSMENT DONE, ALL SAFETY PRECAUTION MET, WILL CONTINUE TO MONITOR.
--- NOTE | 2017-07-22 20:57 | NUR ---
SEIZURE NOTED ON PT, PT SHAKING ALOT, NOT RESPONDING TO NAME OR SHAKING, NO SEIZURE NOTED ON EKG, ATIVAN GIVEN TO PT, PT TOLERATED WELL, NO DISTRESS NOTED, CALL LIGHT WITHIN REACH, WILL CONTINUE TO MONITOR,
[2017-07-22] MEDS: rOPINIRole 1 MG TAB PO SCH (21:55)
--- NOTE | 2017-07-22 21:56 | NUR ---
DUE MEDICATION GIVEN, PT TOLERATED WELL, NO DISTRESS NOTED, CALL LIGHT WITHIN REACH, WILL CONTINUE TO MONITOR.
[2017-07-23] VITALS: BP 119/68
--- NOTE | 2017-07-23 00:20 | NUR ---
CHECKED ON PT, REPOSITIONED AND CHANGED PT, PT TOLERATED WELL, NO DISTRESS NOTED, STABLE, CALL LIGHT WITHIN REACH, WILL CONTINUE TO MONITOR.
--- NOTE | 2017-07-23 00:51 | NUR ---
CHECKED ON PT, PT STABLE, NO DISTRESS NOTED, PO2 AT 89%, INCREASED O2 TO 5LPM, CALL LIGHT WITHIN REACH, WILL CONTINUE TO MONITOR. Addendum: 07/24/17 at 0233 by Vero Ríos RN WRONG DATE
[2017-07-23] MEDS: ALBUTEROL 0.083% 2.5 MG/3 ML NEBU INH SCH ×4 (01:00→19:00)
--- NOTE | 2017-07-23 01:31 | NUR ---
PT DOESNT WANT TX AND WANTS TO SLEEP. NO SOB OR DISTRESS. WILL CONTINUE TO MONITOR.
[2017-07-23] MEDS: LORazepam 2 MG/ML VIAL IVP PRN (03:05)
--- NOTE | 2017-07-23 03:05 | NUR ---
OBSERVED PT HAVING SEIZURE AFTER CLEANING AND REPOSITIONING PT, PT NOT RESPONDING TO NAME AND SHAKING, PT'S WHOLE BODY SHAKING, CARDIAC RHYTHM ON TELE MONITOR DOES NOT SHOW PT HAVING SEIZURE, ATIVAN GIVEN, PT TOLERATED WELL, NO DISTRESS NOTED, CALL LIGHT WITHIN REACH, WILL CONTINUE TO MONITOR.
[2017-07-23 04:00] VITALS: BP 120/74
--- NOTE | 2017-07-23 05:30 | NUR ---
CHANGED AND REPOSITIONED PT, PT TOLERATED WELL, NO DISTRESS NOTED, CALL LIGHT WITHIN REACH, WILL CONTINUE TO MONITOR.
[2017-07-23] MEDS: MEROPENEM 1,000 MG in NACL 0.9% 100 ML IV SCH ×2 (05:36→13:19)
[2017-07-23] MEDS: LEVOTHYROXINE 0.1 MG, LEVOTHYROXINE 0.025 MG PO SCH ×2 (05:38)
--- NOTE | 2017-07-23 07:10 | NUR ---
ENDORSED PLAN OF CARE TO DAY SHIFT NURSE PARDEEP ALEXANDRA, PT STABLE, NO DISTRESS NOTED, CALL LIGHT WITHIN REACH.
[2017-07-23 07:22] LABS: HEMATOCRIT 37.6 % (36-48); HEMOGLOBIN 12.6 g/dL (12.0-16.0); MEAN CORPUSCULAR HEMOGLOBIN 30 pg (27-31); MEAN CORPUSCULAR HGB CONC 34 g/dL (33-37); MEAN CORPUSCULAR VOLUME 89 fL (80-94); PLATELET COUNT (AUTO) 230 K/uL (140-450); RED BLOOD CELL COUNT(AUTO) 4.24 MIL/uL (4.20-5.40); RED CELL DISTRIBUTION WIDTH 13.1 % (11.6-13.7)
[2017-07-23 08:00] VITALS: BP 126/77
--- NOTE | 2017-07-23 08:05 | NUR ---
DR. EPREZ CAME, INFORMED THAT PT. HAD 2 SEIZURE ACTIVITY DURING PM SHIFT.
[2017-07-23 08:25] LABS: WHITE BLOOD COUNT (AUTO) 45.6 K/uL (4.8-10.8)
[2017-07-23 08:28] LABS: LYMPHOCYTES % (MANUAL) 44 % (20-46); MONOCYTES % (MANUAL) 10 % (5-12)
--- NOTE | 2017-07-23 08:37 | NUR ---
PAGED DR. LIRA REGARDING PT. WBC 45.6. LEFT CALL BACK NUMBER. INFORMED CHARGE NURSE.
--- NOTE | 2017-07-23 08:40 | NUR ---
PT IS ON 4L NC. TOLERATED TX. PLACED PT BACK ON 4L NC. SP02 95 HR 98
--- NOTE | 2017-07-23 08:42 | NUR ---
DR. LIRA CALLED BACK, INFORMED PT. CRITICAL WBC 45.6. NO T.O. RECEIVED. PER DR. LIRA, HE WILL SEE PT. TODAY 07/23/17. INFORMED CHARGE NURSE CANDELARIA NI.
[2017-07-23] MEDS: ASCORBIC ACID 500 MG TAB PO SCH (08:49)
[2017-07-23] MEDS: GABAPENTIN 600 MG, GABAPENTIN 200 MG PO SCH ×2 (08:49)
[2017-07-23] MEDS: levETIRAcetam 500 MG TAB PO SCH ×2 (08:49→21:18)
[2017-07-23] MEDS: ESCITALOPRAM 20 MG TAB PO SCH (08:50)
[2017-07-23] MEDS: PROCHLORPERAZINE 5 MG TAB PO SCH (08:50)
[2017-07-23] MEDS: MONTELUKAST SODIUM 10 MG TAB PO SCH (08:50)
[2017-07-23] MEDS: OXcarbazepine 150 MG TAB PO SCH ×2 (08:50→21:18)
[2017-07-23] MEDS: BACLOFEN 10 MG TAB PO SCH (08:51)
[2017-07-23] MEDS: TOBRAMYCIN/DEXAMETHASONE OPTH OINT 3.5 GM TUBE LEFT EYE SCH ×3 (08:51→17:34)
[2017-07-23] MEDS: FUROSEMIDE 20 MG TAB PO SCH (08:51)
[2017-07-23 09:14] LABS: ANION GAP 13.2 (8-16); CARBON DIOXIDE 28.7 mmol/L (21-32); CREATININE 0.8 mg/dL (0.6-1.3); POTASSIUM 3.9 mmol/L (3.5-5.1)
[2017-07-23] MEDS: MORPHINE SULFATE 2 MG/ML SYR IVP PRN ×3 (10:19→22:43)
--- NOTE | 2017-07-23 11:57 | NUR ---
DR. LIRA CAME, REVIEWED PT. CHART AND SEEN PT..
[2017-07-23 12:00] VITALS: BP_SYST 138; BP_DIAS 20; BP_DIAS 81
[2017-07-23] MEDS: MUPIROCIN 2% OINT 22 GM TUBE TP SCH (12:05)
[2017-07-23] MEDS: CHLORHEXADINE GLUC 2% CLOTH TP SCH (12:06)
--- NOTE | 2017-07-23 14:08 | NUR ---
FOUND PT ON 4L NC. PT TOLERATED TX AND WAS STILL AT 92% SP02. SWITCHED OVER TO 6L VIA OXYMIZER.
--- NOTE | 2017-07-23 14:19 | NUR ---
07/23/2017 RD INITIAL ASSESSMENT COMPLETED PLEASE REFER TO NUTRITION ASSESSMENT UNDER CARE ACTIVITY FOR ESTIMATED NUTRITIONAL NEEDS. CONTINUE 2 GM NA DIET TOLERATED. LIBERALIZE DIET TO REGULAR DIET DUE TO NORMALIZED BP. NURSING AND DIETARY STAFF TO ENCOURAGE INCREASED PO INTAKE TOLERATED. RD TO FOLLOW-UP IN 3-5 DAYS PATIENT IS MODERATE RISK. KELSY COSBY RD
--- NOTE | 2017-07-23 15:19 | NUR ---
DR. LIRA CALLED BACK, VERIFIED ORDER OF CEFTRIAXONE 1000 MG IVPB Q24 AND INFORMED PT. ALLERGY TO PCN. PER. DR. LIRA, HE WAS AWARE OF PT. ALLERGY TO PCN AND HE WANTED TO CONTINUE ORDER OF CEFTRIAXONE 1000 MG IVPB Q24. INFORMED CHARGE NURSE CANDELARIA ELIAS -PATSY. CALLED MAYA FROM PHARMACY AND INFORMED THAT PER DR. LIRA OK TO GIVE CEFTRIAXONE 1000 MG IVPB AND HE WAS AWARE OF PT. ALLERGY TO PCN.
[2017-07-23 16:00] VITALS: BP 128/84
[2017-07-23 18:50] LABS: APPEARANCE,URINE CLEAR (CLEAR); BILIRUBIN,URINE NEGATIVE (NEGATIVE); BLOOD, URINE 2+ (NEGATIVE); COLOR,URINE YELLOW (YELLOW); LEUKOCYTE ESTERASE ,URINE NEGATIVE (NEGATIVE); NITRITE, URINE NEGATIVE (NEGATIVE); PH,URINE 8.5 (5.0-9.0); UGLUCOSE NEGATIVE (NEGATIVE)
[2017-07-23 19:10] LABS: RBC,URINE 11-20 (MOD) /HPF (0-5); WBC,URINE 0-5 (RARE) /HPF (0-5)
--- NOTE | 2017-07-23 19:10 | NUR ---
REPORT GIVEN TO HELDER NI. IVF INFUSING AT TKO WELL. IN STABLE CONDITION.
--- NOTE | 2017-07-23 19:10 | NUR ---
RECEIVED BEDSIDE REPORT FROM DAY SHIFT NURSE PARDEEP ALEXANDRA, PT STABLE, NO DISTRESS NOTED, IV TO L HAND 24G RUNNING NS @ TKO, INFUSING WELL, PT ON 4LPM O2 VIA NC WITH HUMIDIFIER, NO SOB, INITIAL ASSESSMENT DONE, ALL SAFETY PRECAUTION MET, WILL CONTINUE TO MONITOR. Addendum: 07/23/17 at 2024 by Vero Ríos RN GREGORIO CATH IN PLACE DRAINING YELLOW URINE WITH SEDIMENTS
--- NOTE | 2017-07-23 19:50 | NUR ---
RT LUANA BY BEDSIDE, PT REFUSED BREATHING TREATMENT, PT STABLE, NO SOB, CALL LIGHT WITHIN REACH, WILL CONTINUE TO MONITOR.
[2017-07-23 20:00] VITALS: BP 130/59
--- NOTE | 2017-07-23 20:00 | NUR ---
CHANGED AND REPOSITIONED PT, PT DID A LARGE BM, SOFT, FORMED, BROWN IN COLOR, NORMAL ODOR, NOT QUALIFIED FOR C.DIFF SAMPLE, LEFT PT RESTING ON BED, NO DISTRESS NOTED, CALL LIGHT WITHIN REACH, WILL CONTINUE TO MONITOR.
[2017-07-23] MEDS: FLUCONAZOLE 200 MG/NS PREMIX 100 ML IV SCH (21:17)
[2017-07-23] MEDS: rOPINIRole 1 MG TAB PO SCH (21:19)
--- NOTE | 2017-07-23 21:19 | NUR ---
DUE MEDICATION GIVEN, PT TOLERATED WELL, NO DISTRESS NOTED, CALL LIGHT WITHIN REACH, WILL CONTINUE TO MONITOR.
--- NOTE | 2017-07-23 22:10 | NUR ---
PT C/O OF SOB, CHECKED ON PT, PT STABLE, NO DISTRESS NOTED, PT TOOK OF NC, PUT PT BACK ON NC, EDUCATE PT IMPORTANCE OF NC AND OXYGEN, OFFERED PT BREATHING TREATMENT, PT REFUSES, PT O2 SAT AT 90%, WILL CONTINUE TO MONITOR.
--- NOTE | 2017-07-23 23:51 | NUR ---
CHECKED ON PT, PT STABLE, NO DISTRESS NOTED, PO2 AT 89%, INCREASED O2 TO 5LPM, CALL LIGHT WITHIN REACH, WILL CONTINUE TO MONITOR. Addendum: 07/24/17 at 0234 by Vero Ríos RN NOTIFIED RT LUANA
[2017-07-24] VITALS: BP 116/69
[2017-07-24] MEDS: ALBUTEROL 0.083% 2.5 MG/3 ML NEBU INH SCH ×4 (00:09→20:05)
--- NOTE | 2017-07-24 01:20 | NUR ---
CHECKED ON PT, PT SAT 88% INCREASED O2 TO 5LPM, NOTIFIED RT LUANA, RT STATED UNDERSTANDING, PT STABLE, NO DISTRESS NOTED, CALL LIGHT WITHIN REACH, WILL CONTINUE TO MONITOR.
[2017-07-24 04:00] VITALS: BP 123/67
--- NOTE | 2017-07-24 04:06 | NUR ---
CHECKED ON PT, PT SLEEPING, NO DISTRESS NOTED, CALL LIGHT WITHIN REACH, WILL CONTINUE TO MONITOR.
[2017-07-24] MEDS: LEVOTHYROXINE 0.1 MG, LEVOTHYROXINE 0.025 MG PO SCH ×2 (05:41)
--- NOTE | 2017-07-24 05:41 | NUR ---
DUE MEDICATION GIVEN, PT TOLERATED WELL, NO DISTRESS NOTED, CALL LIGHT WITHIN REACH, WILL CONTINUE TO MONITOR.
--- NOTE | 2017-07-24 06:17 | NUR ---
DUE TO CHANGE IN KAVON SCORE PATIENT HAS BEEN RESCREENED AND REASSESSED HIGH NUTRITION RISK. PATIENT WILL BE SEEN AND ASSESSED WITHIN 2-3 DAYS OF INITIAL ASSESSMENT. 07/25/17-07/26/17 MARIA ELENA LAMB MS, RDN
[2017-07-24 07:02] LABS: HEMATOCRIT 39.4 % (36-48); HEMOGLOBIN 13.3 g/dL (12.0-16.0); MEAN CORPUSCULAR HEMOGLOBIN 30 pg (27-31); MEAN CORPUSCULAR HGB CONC 34 g/dL (33-37); MEAN CORPUSCULAR VOLUME 88 fL (80-94); PLATELET COUNT (AUTO) 187 K/uL (140-450); RED BLOOD CELL COUNT(AUTO) 4.47 MIL/uL (4.20-5.40); RED CELL DISTRIBUTION WIDTH 12.9 % (11.6-13.7)
[2017-07-24 07:16] LABS: WHITE BLOOD COUNT (AUTO) 49.3 K/uL (4.8-10.8)
--- NOTE | 2017-07-24 07:20 | NUR ---
ENDORSED PLAN OF CARE TO DAY SHIFT NURSE CANDELARIA RN, PT STABLE, NO DISTRESS NOTED, CALL LIGHT WITHIN REACH.
--- NOTE | 2017-07-24 07:30 | NUR ---
RECEIVED PT [id number]. NO SOB NOTED, C/O PAIN AT THIS TIME. IV TO LT HAND PATENT AND INTACT. CHEST, DIMINISHED AIR ENTRY TO THE BASES, WITH OXYGEN AT 5 LITERS PER/MIN VIA NASAL CANNULA WITH SATS OF 90-93%. ABDOMEN SOFT, BOWEL SOUNDS PRESENT. WITH GREGORIO CATHETER DRAINING MODERATE AMOUNT OF SLIGHTLY MARTA URINE. SCD'S IN PLACE. INSTRUCTED PT TO CALL FOR ASSISTANCE, CALL LIGHT WITHIN REACH, PT VERBALIZED UNDERSTANDING.
[2017-07-24 07:42] LABS: LYMPHOCYTES % (MANUAL) 40 % (20-46); MONOCYTES % (MANUAL) 1 % (5-12)
[2017-07-24 08:00] VITALS: BP 125/75
[2017-07-24 08:20] LABS: CARBON DIOXIDE 28.6 mmol/L (21-32); POTASSIUM 3.6 mmol/L (3.5-5.1)
[2017-07-24 08:21] LABS: ALBUMIN 1.7 g/dL (3.4-5.0); CREATININE 0.6 mg/dL (0.6-1.3); TOTAL BILIRUBIN 0.6 mg/dL (0.0-1.0)
[2017-07-24] MEDS: FUROSEMIDE 20 MG TAB PO SCH (08:53)
[2017-07-24] MEDS: MONTELUKAST SODIUM 10 MG TAB PO SCH (08:54)
[2017-07-24] MEDS: GABAPENTIN 600 MG, GABAPENTIN 200 MG PO SCH ×2 (08:54)
[2017-07-24] MEDS: BACLOFEN 10 MG TAB PO SCH (08:54)
[2017-07-24] MEDS: ESCITALOPRAM 20 MG TAB PO SCH (08:54)
[2017-07-24] MEDS: levETIRAcetam 500 MG TAB PO SCH ×2 (08:54→20:52)
[2017-07-24] MEDS: ASCORBIC ACID 500 MG TAB PO SCH (08:54)
[2017-07-24] MEDS: OXcarbazepine 150 MG TAB PO SCH ×2 (08:55→20:53)
[2017-07-24] MEDS: PROCHLORPERAZINE 5 MG TAB PO SCH (08:55)
[2017-07-24 12:00] VITALS: BP 116/76
--- NOTE | 2017-07-24 15:46 | NUR ---
PT HAD BMX1, SMALL LIGHT BROWN SOFT STOOLS NOTED, NOT LOOSE AND NOT LIQUID. SPECIMEN NOT QUALIFIED FOR C-DIFF COLLECTION. Ginger CLEMENS NOTIFIED.
[2017-07-24 16:00] VITALS: BP 122/69
--- NOTE | 2017-07-24 18:51 | NUR ---
LAB CALLED TO RECOLLECT SPUTUM, PREVIOUS SPECIMEN COLLECTED WAS CONTAMINATED WITH SPUTUM.
[2017-07-24] MEDS: HYDROcodone/APAP 5/325 MG 1 TAB TAB PO PRN (19:09)
--- NOTE | 2017-07-24 19:10 | NUR ---
PT AWAKE, CXR ON GOING AT THE BEDSIDE. ENDORSED TO NEXT SHIFT NURSE FOR CONTINUITY OF CARE.
--- NOTE | 2017-07-24 19:11 | NUR ---
RECEIVED BEDSIDE REPORT FROM DAY SHIFT NURSE CANDELARIA RN, PT STABLE, NO DISTRESS NOTED, IV TO L HAND 24G ON TKO, INFUSING WELL, PT ON 5LPM O2 VIA NC, NO SOB, GREGORIO IN PLACE DRAINING YELLOW URINE WITH SEDIMENT, ZIGZAG STITCHER AT BEDSIDE, CXR ONGOING, INITIAL ASSESSMENT DONE, ALL SAFETY PRECAUTION, MET WILL CONTINUE TO MONITOR.
[2017-07-24 20:00] VITALS: BP 112/67
[2017-07-24] MEDS: FLUCONAZOLE 200 MG/NS PREMIX 100 ML IV SCH (20:52)
[2017-07-24] MEDS: rOPINIRole 1 MG TAB PO SCH (20:53)
[2017-07-24] MEDS: LORazepam 0.5 MG TAB PO PRN (21:00)
--- NOTE | 2017-07-24 21:00 | NUR ---
DUE MEDICATION GIVEN, PT TOLERATED WELL, PT REQUESTED SLEEPING MEDICATION, STATED THAT SHE IS UNABLE TO SLEEP, MEDICATION PER ORDERED GIVEN, PT TOLERATED WELL, NO DISTRESS NOTED, CALL LIGHT WITHIN REACH, WILL CONTINUE TO MONITOR.
--- NOTE | 2017-07-24 21:24 | NUR ---
NOTIFIED DR. LIRA REGARDING PT STOOL FORMED, SOFT, BROWN, DOES NOT MEET THE CRITERIA OF C.DIFF, ORDERS TO D/C ORDER OF C.DIFF TEST. WILL CONTINUE WITH ORDER.
[2017-07-24] MEDS ORDERED: VANCOMYCIN PER PHARMACY MC PRN (21:55)
[2017-07-24] MEDS ORDERED: VANCOMYCIN 1,000 MG in DEXTROSE 5% 250 ML IV SCH (22:30)
[2017-07-24] MEDS ORDERED: VANCOMYCIN 1,000 MG VIAL ONE (23:50)
--- NOTE | 2017-07-24 23:59 | NUR ---
DUE MEDICATION, NEW ORDER OF VANCOMYCIN GIVEN, PT TOLERATED WELL, NO DISTRESS NOTED, CALL LIGHT WITHIN REACH, WILL CONTINUE TO MONITOR.
[2017-07-25] VITALS: BP 113/52
[2017-07-25] MEDS: ALBUTEROL 0.083% 2.5 MG/3 ML NEBU INH SCH ×4 (01:00→19:56)
--- NOTE | 2017-07-25 03:00 | NUR ---
CHANGED AND REPOSITIONED PT, PT TOLERATED WELL, NO DISTRESS NOTED, CALL LIGHT WITHIN REACH, WILL CONTINUE TO MONITOR.
--- NOTE | 2017-07-25 03:16 | NUR ---
SPUTUM COLLECTED FROM PT, AND SENT TO LAB FOR SPUTUM CULTURE
[2017-07-25 04:00] VITALS: BP 112/70
--- NOTE | 2017-07-25 04:10 | NUR ---
CHECKED ON PT, PT SLEEPING, NO DISTRESS NOTED, CALL LIGHT WITHIN REACH, WILL CONTINUE TO MONITOR.
[2017-07-25] MEDS: LEVOTHYROXINE 0.1 MG, LEVOTHYROXINE 0.025 MG PO SCH ×2 (05:53)
[2017-07-25 07:06] LABS: CREATININE 0.6 mg/dL (0.6-1.3)
--- NOTE | 2017-07-25 07:25 | NUR ---
ENDORSED PLAN OF CARE TO DAY SHIFT NURSE KESHA RN, PT STABLE, NO DISTRESS NOTED, CALL LIGHT WITHIN REACH.
--- NOTE | 2017-07-25 07:26 | NUR ---
RECEIVED REPORT FROM TELEVISION RECEIVER ANALYZER NURSE AT BEDSIDE FOR CONTINUITY OF CARE. PATIENT RESTING WITH EYES CLOSED. EASILY WOKEN. NO ACUTE DISTRESS NOTED. AT THIS TIME . PT WITH TKO TO LEFT HAND 24 G. WILL CONT TO MONITOR.
--- NOTE | 2017-07-25 07:35 | NUR ---
PATIENT QUIET AND RESTING. ARROUSABLE AND RESPONSIVE WHEN SPOKEN TO. TX GIVEN. PATIENT TOLERATED TX WELL. NO SOB OR RESPIRATORY DISTRESS NOTED AT THIS TIME.
[2017-07-25 07:41] LABS: HEMATOCRIT 39.5 % (36-48); HEMOGLOBIN 12.4 g/dL (12.0-16.0); MEAN CORPUSCULAR HEMOGLOBIN 29 pg (27-31); MEAN CORPUSCULAR HGB CONC 32 g/dL (33-37); MEAN CORPUSCULAR VOLUME 91 fL (80-94); PLATELET COUNT (AUTO) 174 K/uL (140-450); RED BLOOD CELL COUNT(AUTO) 4.36 MIL/uL (4.20-5.40); RED CELL DISTRIBUTION WIDTH 12.9 % (11.6-13.7)
[2017-07-25 07:46] LABS: WHITE BLOOD COUNT (AUTO) 42.1 K/uL (4.8-10.8)
[2017-07-25 08:00] VITALS: BP 113/66
[2017-07-25] MEDS: MORPHINE SULFATE 2 MG/ML SYR IVP PRN ×2 (08:01→15:12)
--- NOTE | 2017-07-25 08:05 | NUR ---
INITIAL ASSESSMENT PERFORMED. PATIENT ALERT AND ABLE TO MAKE NEEDS KNOWN. NO ACUTE DISTRESS NOTED. PATIENT WITH TKO TO LEFT HAND 24G. PATENT AND INTACT. LUNG SOUNDS WITH EXPIRATORY WHEEZING TO RIGHT LOBES. CLEAR LEFT LOBES. BOWEL SOUNDS ACTIVE. PATIENT VERBALIZED GENERALIZED PAIN STATED 9/10 THIS AM. SKIN INTACT. DISCUSSED PLAN OF CARE AT BEDSIDE. PATIENT VERBALIZED UNDERSTANDING AND AGREEMENT. CALL LIGHT WITHIN REACH. WILL CONT TO MONITOR.
[2017-07-25 08:13] LABS: EOSINOPHILS % (MANUAL) 2 % (0-4); LYMPHOCYTES % (MANUAL) 32 % (20-46); MONOCYTES % (MANUAL) 3 % (5-12)
[2017-07-25] MEDS: ESCITALOPRAM 20 MG TAB PO SCH (09:26)
[2017-07-25] MEDS: levETIRAcetam 500 MG TAB PO SCH ×2 (09:27→20:57)
[2017-07-25] MEDS: ASCORBIC ACID 500 MG TAB PO SCH (09:27)
[2017-07-25] MEDS: PROCHLORPERAZINE 5 MG TAB PO SCH (09:29)
[2017-07-25] MEDS: OXcarbazepine 150 MG TAB PO SCH ×2 (09:30→20:57)
[2017-07-25] MEDS: FUROSEMIDE 20 MG TAB PO SCH (09:30)
[2017-07-25] MEDS: BACLOFEN 10 MG TAB PO SCH (09:31)
[2017-07-25] MEDS: MONTELUKAST SODIUM 10 MG TAB PO SCH (09:31)
[2017-07-25] MEDS: GABAPENTIN 600 MG, GABAPENTIN 200 MG PO SCH ×2 (09:32)
--- NOTE | 2017-07-25 09:45 | NUR ---
LAB CALLED REGARDING SPUTUM SPECIMEN BEING A POOR COLLECTION AND NEED FOR RECOLLECTION. WILL ATTEMPT TO GATHER SPUTUM FROM PATIENT. PATIENT WITH SCANT SPUTUM AND OCCASIONAL COUGH.
--- NOTE | 2017-07-25 10:18 | NUR ---
PT RESTING IN BED WITH EYES CLOSED. EASILY WOKEN. NO ACUTE DISTRESS NOTED. PATIENT VERBALIZED PAIN IMPROVED. RESTING COMFORTABLY. WILL CONT TO MONITOR.
[2017-07-25] MEDS: VANCOMYCIN 1,250 MG in DEXTROSE 5% 250 ML IV SCH ×2 (11:20→18:30)
[2017-07-25 12:00] VITALS: BP 112/55
--- NOTE | 2017-07-25 12:45 | NUR ---
REPLACED PT IV SITE FROM LEFT HAND 24G D/T RESISTANCE. REMOVED OLD IV SITE . LUMEN INTACT.PT TOLERATED WELL. NEW IV SITE TO LEFT MEDIAL HAND 24G. PT TOLERATED WELL. WILL CONT TO MONITOR PT.
--- NOTE | 2017-07-25 13:56 | NUR ---
PATIENT QUIET AND AWAKE. TX GIVEN. TOLERATED TX WELL. NO SOB OR RESPIRATORY DISTRESS NOTED AT THIS TIME.
--- NOTE | 2017-07-25 14:33 | NUR ---
PT RESTING IN BED WITH EYES CLOSED. NO ACUTE DISTRESS NOTED. RESP EVEN AND UNLABORED. CONT ON 5L/MIN VIA NC. O2 SAT RANGES FROM 90-93%. BED IN LOW POSITION. CALL LIGHT WITHIN REACH. WILL CONT TO MONITOR.
[2017-07-25 16:00] VITALS: BP 122/70
--- NOTE | 2017-07-25 16:30 | NUR ---
PATIENT CHANGED AND REPOSITIONED IN BED FOR COMFORT. NO ACUTE DISTRESS. DENIES PAIN AT THIS TIME. WILL CONT TO MONITOR PT.
[2017-07-25] MEDS: ALBUTEROL 0.083% 2.5 MG/3 ML NEBU INH PRN (17:38)
--- NOTE | 2017-07-25 17:38 | NUR ---
CALLED TO ROOM BY RN PER PATIENT COMPLAINING OF SOB. PATIENT STATES SHE FEELS SHORT OF BREATH. PRN TX ADMINISTERED. PATIENT TOLERATED TX WELL.
[2017-07-25] MEDS: HYDROcodone/APAP 5/325 MG 1 TAB TAB PO PRN (18:22)
--- NOTE | 2017-07-25 18:30 | NUR ---
VANCO ADMINISTERED ORDERED. PT ALSO GIVEN NORCO PRN. PT TOLERATED WELL. WILL CONT TO MONITOR PT.
--- NOTE | 2017-07-25 19:35 | NUR ---
REPORT GIVEN TO FAST FOOD FRY COOK NURSE AT BEDSIDE FOR CONT OF CARE.
--- NOTE | 2017-07-25 19:36 | NUR ---
RECEIVED REPORT FROM AM RN. PATIENT A&OX4. PATIENT STATES PAIN IN IN ABDOMEN AND CHEST DUE TO COUGHING. WILL MEDICATE ORDERED. PATIENT IS DIAPHORETIC, BLOOD SUGAR 194, VSS, TEMPERATURE IS 98.2, WILL PROVIDE COOLING MEASURES,. SEIZURE PRECAUTION IN PLACE. GREGORIO CATH PATENT AND INTACT. IV SITE PATENT AND INTACT. NC PATENT AND INTACT. FRIENDS AT BEDSIDE. WILL CONTINUE TO MONITOR.
[2017-07-25 20:00] VITALS: BP_SYST 104; BP_SYST 114; BP_DIAS 50; BP_DIAS 70
[2017-07-25] MEDS: IBUPROFEN 200 MG TAB PO PRN (20:57)
[2017-07-25] MEDS: rOPINIRole 1 MG TAB PO SCH (20:58)
[2017-07-25] MEDS: FLUCONAZOLE 200 MG/NS PREMIX 100 ML IV SCH (20:58)
--- NOTE | 2017-07-25 21:15 | NUR ---
ORDERED CT SCAN WITH CONTRAST. NEW IV STARTED IN RIGHT A/C 20G. PATIENT TOLERATED WELL. PATIENT HAD ME SPEAK WITH HER FATHER REGARDING THE CT SCAN TO EXPLAIN WHAT IT IS FOR. SPOKE VIA PATIENT TELEPHONE PER PATIENT REQUEST.
[2017-07-25] MEDS: ENOXAPARIN 40 MG/0.4 ML SYR SUBQ SCH (21:20)
--- NOTE | 2017-07-25 22:07 | NUR ---
PAGED DR. HOLLAND REGARDING PATIENT. PATIENT C/O DIZZINESS AND HAS VOMITING. WILL MEDICATE ORDERED.
[2017-07-25] MEDS ORDERED: PROCHLORPERAZINE 10 MG/2 ML VIAL IVP STA (22:50)
[2017-07-26] VITALS: BP 106/71
[2017-07-26] MEDS: ALBUTEROL 0.083% 2.5 MG/3 ML NEBU INH SCH ×4 (00:34→18:33)
[2017-07-26] MEDS: VANCOMYCIN 1,250 MG in DEXTROSE 5% 250 ML IV SCH ×2 (03:47→12:06)
[2017-07-26 04:00] VITALS: BP 110/78
--- NOTE | 2017-07-26 05:30 | NUR ---
PATIENT AWAKE IN BED. PATIENT TALKATIVE AND STATES SHE FEELS MUCH BETTER AND REQUESTED SHEETS AND GOWN TO BE CHANGES. PATIENT TOLERATED WELL. NO SIGNS OR SYMPTOMS OF ACUTE DISTRESS NOTED. SAFETY MEASURES ENSURED. CALL LIGHT WITHIN REACH. WILL CONTINUE TO MONITOR.
[2017-07-26] MEDS: LEVOTHYROXINE 0.1 MG, LEVOTHYROXINE 0.025 MG PO SCH ×2 (05:56)
--- NOTE | 2017-07-26 07:11 | NUR ---
RECEIVED REPORT AT BEDSIDE FROM CAPACITY MANAGEMENT SPECIALIST NURSE FOR CONTINUITY OF CARE. PATIENT RESTING IN BED WITH EYES CLOSED. NO ACUTE DISTRESS NOTED.LEFT HAND WITH 24G SL. RAC 20G SL. PATIENT PENDING PROCEDURE CT ABDOMEN THIS AM. . WILL CONT TO MONITOR PT.
--- NOTE | 2017-07-26 07:16 | NUR ---
ENDORSED PLAN OF CARE TO AM RN. PATIENT IN STABLE CONDITION.
[2017-07-26 07:26] LABS: HEMATOCRIT 36.7 % (36-48); HEMOGLOBIN 12.1 g/dL (12.0-16.0); MEAN CORPUSCULAR HEMOGLOBIN 30 pg (27-31); MEAN CORPUSCULAR HGB CONC 33 g/dL (33-37); MEAN CORPUSCULAR VOLUME 90 fL (80-94); PLATELET COUNT (AUTO) 152 K/uL (140-450); RED BLOOD CELL COUNT(AUTO) 4.09 MIL/uL (4.20-5.40); RED CELL DISTRIBUTION WIDTH 13.6 % (11.6-13.7)
[2017-07-26 07:35] LABS: WHITE BLOOD COUNT (AUTO) 35.5 K/uL (4.8-10.8)
--- NOTE | 2017-07-26 07:37 | NUR ---
PATIENT QUIET AND RESTING. EASILY ARROUSABLE TO VERBAL STIMULATION. TX GIVEN. PT TOLERATED TX WELL. RETURN TO 5L NC. OS SAT 94%. NO SOB OR RESPIRATORY DISTRESS NOTED AT THIS TIME.
[2017-07-26 07:39] LABS: ANION GAP 9.9 (8-16); CARBON DIOXIDE 28.8 mmol/L (21-32); CREATININE 0.6 mg/dL (0.6-1.3); POTASSIUM 3.7 mmol/L (3.5-5.1)
[2017-07-26 07:41] LABS: MAGNESIUM 1.9 mg/dL (1.8-2.4); PHOSPHORUS 3.9 mg/dL (2.5-4.9)
[2017-07-26 08:00] VITALS: BP 108/53
--- NOTE | 2017-07-26 08:00 | NUR ---
INITIAL ASSESSMENT PERFORMED. PATIENT A/O X4. PATIENT RESTING IN BED WITH EYES CLOSED. RESTING COMFORTABLY. NO ACUTE DISTRESS NOTED. PATIENT WITH RAC 20G SL AND LEFT HAND 24G. PATENT AND INTACT. LUNG SOUNDS WHEEZING BILATERALLY. BOWEL SOUNDS ACTIVE X 4 QUADS. PATIENT DENIES PAIN AT THIS TIME. SKIN INTACT. DISCUSSED PLAN OF CARE AT BEDSIDE. PT VERBALIZED UNDERSTANDING OF PROCEDURE THIS AM. PATIENT TO REMAIN NPO UNTIL PROCEDURE. PATIENT VERBALIZED UNDERSTANDING AND AGREEMENT. CALL LIGHT WITHIN REACH. WILL CONT TO MONITOR.
[2017-07-26 08:19] LABS: BASOPHILS % (MANUAL) 0 % (0-2); EOSINOPHILS % (MANUAL) 2 % (0-4); LYMPHOCYTES % (MANUAL) 41 % (20-46); MONOCYTES % (MANUAL) 5 % (5-12)
--- NOTE | 2017-07-26 08:30 | NUR ---
RADIOLOGY ARRIVED ON UNIT TO TAKE PATIENT TO CT SCAN WITH OR WITHOUT CONTRAST. PATIENT STABLE. VSS. CELLPHONE LEFT AT BEDSIDE. PATIENT WITH RAC 20G PATENT AND INTACT.
--- NOTE | 2017-07-26 09:50 | NUR ---
PT RETURNED FROM PROCEDURE. PATIENT ALERT AWARE. NO ADVERSE REACTIONS NOTED. SET UP PATIENT TO HAVE BREAKFAST. CALL LIGHT WITHIN REACH. PATIENT WITH O2 SAT CONNECTED AND OXYGEN @5L/MIN VIA NC. PATIENT RESTING COMFORTABLY WATCHING TV. WILL CONT TO MONITOR PT.
[2017-07-26] MEDS: levETIRAcetam 500 MG TAB PO SCH ×2 (10:10→20:57)
[2017-07-26] MEDS: OXcarbazepine 150 MG TAB PO SCH ×2 (10:11→20:57)
[2017-07-26] MEDS: MONTELUKAST SODIUM 10 MG TAB PO SCH (10:11)
[2017-07-26] MEDS: ASCORBIC ACID 500 MG TAB PO SCH (10:11)
[2017-07-26] MEDS: GABAPENTIN 600 MG, GABAPENTIN 200 MG PO SCH ×2 (10:12)
[2017-07-26] MEDS: FUROSEMIDE 20 MG TAB PO SCH (10:12)
[2017-07-26] MEDS: PROCHLORPERAZINE 5 MG TAB PO SCH (10:12)
[2017-07-26] MEDS: BACLOFEN 10 MG TAB PO SCH (10:12)
[2017-07-26] MEDS: ESCITALOPRAM 20 MG TAB PO SCH (10:12)
--- NOTE | 2017-07-26 10:26 | NUR ---
INTERNATIONAL MARKETING SPECIALIST IN TO COLLECT [facility] TR[facility] BLOOD SPECIMEN.
--- NOTE | 2017-07-26 10:46 | NUR ---
07/26/17 RD FOLLOW UP COMPLETED PLEASE REFER TO NUTRITION PROGRESS NOTE UNDER CARE ACTIVITY FOR ESTIMATED NUTRITION NEEDS. RD RECOMMENDATIONS: 1. CONSIDER CHANGING DIET TO REGULAR. 2. RDN TO PROVIDE HEALTH SHAKES WITH ALL MEALS TO HELP MEET ESTIMATED NEEDS. 3. CONSULT RDN PRN. 4. RD WILL F/U 2-3 DAYS; HIGH RISK. MARIA ELENA LAMB, MS, RDN
--- NOTE | 2017-07-26 11:22 | NUR ---
LAB CALLED TO REPORT VANCO TROUGH 18.4 . WILL REPORT TO PHARMACY.
--- NOTE | 2017-07-26 11:28 | NUR ---
PHARMACY CALLED AND AWARE OF VANCO TROUGH OF 18.4 PHARMACIST STATED TO CONTINUE CURRENT DOSE OF 1250MG OF VANCO VIA IVPB.
[2017-07-26 12:00] VITALS: BP 100/55
[2017-07-26] MEDS: HYDROcodone/APAP 5/325 MG 1 TAB TAB PO PRN (12:17)
--- NOTE | 2017-07-26 12:17 | NUR ---
CHECKED PATIENT VS. LUNCH SERVED TO PATIENT. NORCO GIVEN TO PATIENT D/T 5/10 PAIN TO BACK . WILL CONT TO MONITOR PT.
--- NOTE | 2017-07-26 14:11 | NUR ---
PATIENT RESTING IN BED WITH EYES CLOSED. NO ACUTE DISTRESS NOTED. RESP EVEN AND UNLABORED. O2 SAT @91%. CALL LIGHT WITHIN REACH. WILL CONT TO MONITOR PT.
[2017-07-26 16:00] VITALS: BP 101/45
--- NOTE | 2017-07-26 16:30 | NUR ---
PT WITH FATHER AT BEDSIDE. CALLED STATING SHE FELT CHEST CONGESTION. O2 SAT 95%. PT REQUESTING BREATHING TREATMENT. RT MADE AWARE.
[2017-07-26] MEDS: ALBUTEROL 0.083% 2.5 MG/3 ML NEBU INH PRN (16:50)
[2017-07-26] MEDS: IBUPROFEN 200 MG TAB PO PRN (17:50)
[2017-07-26] MEDS ORDERED: LORazepam 2 MG/ML VIAL IVP PRN (18:05)
--- NOTE | 2017-07-26 18:10 | NUR ---
CALLED DR RACHANA HOLLAND DICE DEALER FOR DR SHIPMAN( COVERING FOR [place]) REGARDING PATIENT C/O SOB DIFFICULTY BREATHING PATIENT O2 SAT @94% ON 5L/MIN VIA NC. HR 110. PATIENT UNABLE TO EXPECTORATE PHLEGM PATIENT STATED SHE FEELS SHE CANT COUGH OUT WHAT SHE FEELS IN CHEST. WITH NEW ORDER FOR MUCOMYST 10% 1ML q6HRS WITH TX FOR 2 DAYS, AND NEW ORDER FOR ATIVAN 0.5MG IVP Q6HRS PRN FOR SOB. PATIENT MADE AWARE. ALL ORDERS NOTED. WILL CONT TO MONITOR PT.
[2017-07-26] MEDS: ACETYLCYSTEINE 10% (100 MG/ML) 100 MG/ML VIAL INH SCH (19:00)
[2017-07-26] MEDS ORDERED: FUROSEMIDE 20 MG/2 ML VIAL IVP ONE (19:15)
--- NOTE | 2017-07-26 19:19 | NUR ---
REPORT GIVEN TO SUPERVISOR FINISHING DEPARTMENT NURSE AT BEDSIDE FOR CONT OF CARE. PATIENT STABLE.
--- NOTE | 2017-07-26 19:20 | NUR ---
RECEIVED PT IN STABLE CONDITION FORM AM NURSE. AWAKE,ALERT AND ORIENTED X4. ON TELE MONITOR-ST. WITH O25L/NC. O2 SAT 95%. AFEBRILE. BEDREST. WITH GENERALIZED WEAKNESS. SKIN INTACT. HAS HL ON LT HAND#24 AND RT AC #20. CLEAR AND PATENT. HAS GREGORIO CATHETER TO GRAVITY, WITH LIGHT MARTA COLORED URINE. PLAN OF CARE DISCUSSED AND NEED VERBALIZED UNDERSTANDING. BED ON LOWEST POSITION,FREQUENT ROUNDS NEEDED, CALL LIGHT PLACED WITHIN EASY REACH. ON CONTACT ISOLATION WITH HX: MRSA NARES. WILL CONTINUE TO MONITOR.
[2017-07-26 20:00] VITALS: BP 108/56
[2017-07-26] MEDS: rOPINIRole 1 MG TAB PO SCH (20:57)
[2017-07-26] MEDS: ENOXAPARIN 40 MG/0.4 ML SYR SUBQ SCH (21:05)
[2017-07-26] MEDS ORDERED: FUROSEMIDE 20 MG/2 ML VIAL IVP SCH (21:30)
--- NOTE | 2017-07-26 22:00 | NUR ---
PT WAS REPOSITIONED FOR COMFORT. NO C/O ANY PAIN NOTED.
[2017-07-27 00:19] VITALS: BP 109/63
--- NOTE | 2017-07-27 00:22 | NUR ---
LASIX 20 MG IVP GIVEN PER MD ORDER.
[2017-07-27] MEDS: ACETYLCYSTEINE 10% (100 MG/ML) 100 MG/ML VIAL INH SCH ×4 (01:00→19:00)
[2017-07-27] MEDS ORDERED: IBUPROFEN 800 MG TAB ONE ×2 (01:11→20:26)
[2017-07-27] MEDS: ALBUTEROL 0.083% 2.5 MG/3 ML NEBU INH SCH ×4 (01:23→19:00)
[2017-07-27] MEDS: IBUPROFEN 200 MG TAB PO PRN (01:24)
--- NOTE | 2017-07-27 01:28 | NUR ---
AT 1900 AND 0100 MUCOMYST 10% MEDICATION NOT AVAILABLE IN REFRIGERATOR OR PATIENT CASSETTE
--- NOTE | 2017-07-27 03:00 | NUR ---
MADE ROUNDS. PT ASLEEP. NO DISTRESS NOTED.
[2017-07-27 03:50] VITALS: BP 105/54
[2017-07-27] MEDS: LEVOTHYROXINE 0.1 MG, LEVOTHYROXINE 0.025 MG PO SCH ×2 (06:32)
[2017-07-27 06:55] LABS: HEMATOCRIT 33.7 % (36-48); HEMOGLOBIN 11.3 g/dL (12.0-16.0); MEAN CORPUSCULAR HEMOGLOBIN 30 pg (27-31); MEAN CORPUSCULAR HGB CONC 34 g/dL (33-37); MEAN CORPUSCULAR VOLUME 89 fL (80-94); PLATELET COUNT (AUTO) 148 K/uL (140-450); RED CELL DISTRIBUTION WIDTH 13.3 % (11.6-13.7); WHITE BLOOD COUNT (AUTO) 15.1 K/uL (4.8-10.8)
[2017-07-27 07:08] LABS: MAGNESIUM 1.9 mg/dL (1.8-2.4); PHOSPHORUS 4.4 mg/dL (2.5-4.9)
[2017-07-27 07:18] LABS: ANION GAP 10.2 (8-16); CREATININE 0.6 mg/dL (0.6-1.3); POTASSIUM 3.2 mmol/L (3.5-5.1)
--- NOTE | 2017-07-27 07:25 | NUR ---
NO SEIZURE ACTIVITY NOTED DURING THE NIGHT. ENDORSED PT IN STABLE CONDITION TO AM NURSE.
--- NOTE | 2017-07-27 07:25 | NUR ---
RECEIVED PATIENT REPORT AT BEDSIDE FROM NIGHTSHIFT NURSE. PATIENT HAS GREGORIO CATHETER IN PLACE AND CONTINUOUS PULSE OXIMETER READING. PATIENT ON 5L NASAL CANNULA AT THIS TIME. PATIENT IS ASLEEP BUT AROUSABLE TO NAME. NO COMPLAINTS OF PAIN AND NO SIGNS OF RESPIRATORY DISTRESS. UPDATED BOARD AND LOWERED BED TO LOWEST SETTING. ALL APPROPRIATE SIGNS IN PLACE FOR PATIENT. WILL CONTINUE TO MONITOR PATIENT.
[2017-07-27 07:34] LABS: EOSINOPHILS % (MANUAL) 1 % (0-4); LYMPHOCYTES % (MANUAL) 21 % (20-46); MONOCYTES % (MANUAL) 6 % (5-12)
[2017-07-27 08:00] VITALS: BP 109/69
[2017-07-27] MEDS: levETIRAcetam 500 MG TAB PO SCH ×2 (09:35→20:29)
[2017-07-27] MEDS: ASCORBIC ACID 500 MG TAB PO SCH (09:35)
[2017-07-27] MEDS: ESCITALOPRAM 20 MG TAB PO SCH (09:35)
[2017-07-27] MEDS: GABAPENTIN 600 MG, GABAPENTIN 200 MG PO SCH ×2 (09:35)
[2017-07-27] MEDS: BACLOFEN 10 MG TAB PO SCH (09:36)
[2017-07-27] MEDS: FUROSEMIDE 20 MG TAB PO SCH (09:36)
[2017-07-27] MEDS: PROCHLORPERAZINE 5 MG TAB PO SCH (09:36)
[2017-07-27] MEDS: MONTELUKAST SODIUM 10 MG TAB PO SCH (09:36)
[2017-07-27] MEDS: OXcarbazepine 150 MG TAB PO SCH ×2 (09:36→20:29)
--- NOTE | 2017-07-27 10:06 | NUR ---
PATIENT PRESENTED WITH SEIZURE SYMPTOMS. PATIENTS EYES BLINKING RAPIDLY AND UPPER ARMS PRESENTING WITH SPASMS OF THE UPPER EXTREMITIES. PATIENT IS NOT RESPONSIVE BUT EYES ARE FIXED TO THE RIGHT OF THE ROOM. ALFALFA DEHYDRATOR OPERATOR HELPED TURN PATIENT TO THE SIDE. WILL ADMINISTER MEDICATIONS FOR PATIENT'S SEIZURE.
[2017-07-27] MEDS: LORazepam 2 MG/ML VIAL IVP PRN (10:16)
--- NOTE | 2017-07-27 10:16 | NUR ---
ADMINISTERED ATIVAN TO PATIENT FOR BREAKTHROUGH SEIZURES. PATIENT TOWARDS THE END OF HER SEIZURE. PATIENT ABLE TO RESPOND TO NAME BUT EYES STILL FIXED. VITAL SIGNS WITHIN NORMAL LIMITS AT THIS TIME. PATIENT SEIZURE LASTED ABOUT 10 MINUTES WITH DIRECTOR OF INTERCOLLEGIATE ATHLETICS MONITORING PATIENT WHILE I RETRIEVED ATIVAN. WILL CONTINUE TO MONITOR PATIENT.
[2017-07-27 12:00] VITALS: BP 125/64
--- NOTE | 2017-07-27 12:30 | NUR ---
PATIENT RESTING IN BED AT THIS TIME. NO COMPLAINTS OF PAIN. NO SIGNS OF RESPIRATORY DISTRESS OR RESPIRATORY DEPRESSION. WILL CONTINUE TO MONITOR PATIENT.
[2017-07-27] MEDS ORDERED: POTASSIUM CHLORIDE 10 MEQ TABER PO SCH (13:30)
--- NOTE | 2017-07-27 14:35 | NUR ---
CM NOTE REVIEW DONE
[2017-07-27] MEDS ORDERED: FUROSEMIDE 20 MG/2 ML VIAL IVP SCH (14:54)
[2017-07-27] MEDS ORDERED: FUROSEMIDE 40 MG/4 ML VIAL IVP SCH ×2 (15:05→15:52)
[2017-07-27 16:00] VITALS: BP 123/61
[2017-07-27] MEDS ORDERED: IBUPROFEN 800 MG TAB PO PRN (16:05)
--- NOTE | 2017-07-27 16:50 | NUR ---
PATIENT APPEARS DIAPHORETIC. APPLIED COOLING CLOTH TO PATIENTS FOREHEAD. PATIENT'S TEMPERATURE IS AT 99.0.
--- NOTE | 2017-07-27 19:11 | NUR ---
UNABLE TO GIVE HHNTX AT THIS TIME. PATIENT HAS ELAVATED PULSE. HR 131. WILL CHECK ON PATIENT LATER
--- NOTE | 2017-07-27 19:22 | NUR ---
GAVE REPORT TO NIGHTSHIFT NURSE AT BEDSIDE. PATIENT IS IN STABLE CONDITION.
--- NOTE | 2017-07-27 19:23 | NUR ---
RECEIVED PT AWAKE, AOX3, VITAL SIGNS TAKEN, HR-128 BPM, TEMP-99.0, DIAPHORETIC, DENIES CHEST PAIN BUT COMPLAINING OF GENERALIZED PAIN, WILL MEDIATE PRN, ON O2 AT 5L/NC, NO SOB NOTED, GREGORIO CATH IN PLACE DRAINING WELL, ON CONTACT PRECAUTION, SAFETY MEASURES IN PLACE, SIDE RAILS UP AND BED ALARM ON, CALL LIGHT WITHIN REACH.
[2017-07-27 20:00] VITALS: BP 108/58
[2017-07-27] MEDS: rOPINIRole 1 MG TAB PO SCH (20:29)
[2017-07-27] MEDS: ENOXAPARIN 40 MG/0.4 ML SYR SUBQ SCH (20:35)
--- NOTE | 2017-07-27 21:51 | NUR ---
PT COMPLAINING OF RT ARM PAIN, PT THINKS ITS HER IV LINE TO THE RT AC THAT IS CAUSING PAIN, IV LINE DISCONTINUED WITH CANNULA INTACT, LEFT HAND IV LINE FLUSHES WELL, MONITORED CLOSELY.
[2017-07-28] VITALS: BP 107/53
--- NOTE | 2017-07-28 | NUR ---
PT SLEEPING, AROUSABLE TO TOUCH, VITAL SIGNS STABLE, HR-106, DENIES PAIN, NO RESP DISTRESS NOTED, CONTINUE TO MONITOR CLOSELY.
[2017-07-28] MEDS: ACETYLCYSTEINE 10% (100 MG/ML) 100 MG/ML VIAL INH SCH ×4 (00:53→19:12)
[2017-07-28] MEDS: ALBUTEROL 0.083% 2.5 MG/3 ML NEBU INH SCH ×4 (00:54→19:12)
[2017-07-28 04:00] VITALS: BP 115/71
[2017-07-28] MEDS: LEVOTHYROXINE 0.1 MG, LEVOTHYROXINE 0.025 MG PO SCH ×2 (06:03)
--- NOTE | 2017-07-28 06:13 | NUR ---
PT SLEEPING, EASILY AROUSABLE, DUE PO MEDICATION TAKEN, NO SIGNS OF PAIN, NO SOB NOTED, NO SEIZURE EPISODE NOTED THE WHOLE SHIFT, MONITORED CLOSELY.
[2017-07-28 06:57] LABS: PHOSPHORUS 3.7 mg/dL (2.5-4.9)
--- NOTE | 2017-07-28 07:15 | NUR ---
PT AWAKE, NO SIGNS OF DISTRESS, REPORT GIVEN TO PATSY VALERO FOR CONTINUITY OF CARE.
--- NOTE | 2017-07-28 07:16 | NUR ---
RECEIVED PT REPORT AT BEDSIDE. PT ASLEEP. NO S/S OF DISTRESS. AUSCULTATED LUNGS SOUNDS CLEAR 5L NC. IV L HAND 24 G SALINE LOCK SITE INTACT. GREGORIO CATHETER IN PLACE WITH MARTA CLEAR URINE NOTED.SKIN INTACT. PT RESTING COMFORTABLE IN BED. BED IN LOW POSITION, 3 BED RAILS UP. WHEELS TO BED LOCKED. CALL LIGHT WITHIN REACH. CONTACT PRECAUTIONS. IN STABLE CONDITION.
[2017-07-28 07:22] LABS: ANION GAP 11.4 (8-16); CREATININE 0.5 mg/dL (0.6-1.3); POTASSIUM 3.4 mmol/L (3.5-5.1)
[2017-07-28 08:00] VITALS: BP 110/61
[2017-07-28 08:15] LABS: BASOPHILS # (AUTO) 0.3 K/uL (0.00-0.22); BASOPHILS % (AUTO) 1.5 % (0.0-2.0); EOSINOPHILS # (AUTO) 0.2 K/uL (0-0.4); EOSINOPHILS % (AUTO) 0.9 % (0.0-4.0); HEMATOCRIT 36.7 % (36-48); HEMOGLOBIN 11.7 g/dL (12.0-16.0); LYMPHOCYTES # (AUTO) 4.1 K/uL (2.5-16.5); LYMPHOCYTES % (AUTO) 23.1 % (20.5-51.1); MEAN CORPUSCULAR HEMOGLOBIN 29 pg (27-31); MEAN CORPUSCULAR HGB CONC 32 g/dL (33-37); MEAN CORPUSCULAR VOLUME 90 fL (80-94); MONOCYTES # (AUTO) 1.7 K/uL (0.8-1.0); MONOCYTES % (AUTO) 9.6 % (1.7-9.3); NEUTROPHILS # (AUTO) 11.6 K/uL (1.8-7.7); NEUTROPHILS % (AUTO) 64.9 % (42.2-75.2); PLATELET COUNT (AUTO) 176 K/uL (140-450); RED BLOOD CELL COUNT(AUTO) 4.08 MIL/uL (4.20-5.40); RED CELL DISTRIBUTION WIDTH 13.1 % (11.6-13.7); WHITE BLOOD COUNT (AUTO) 17.9 K/uL (4.8-10.8)
[2017-07-28] MEDS: ESCITALOPRAM 20 MG TAB PO SCH (09:12)
[2017-07-28] MEDS: GABAPENTIN 600 MG, GABAPENTIN 200 MG PO SCH ×2 (09:14)
[2017-07-28] MEDS: OXcarbazepine 150 MG TAB PO SCH ×2 (09:14→20:13)
[2017-07-28] MEDS: PROCHLORPERAZINE 5 MG TAB PO SCH (09:14)
[2017-07-28] MEDS: MONTELUKAST SODIUM 10 MG TAB PO SCH (09:15)
[2017-07-28] MEDS: FUROSEMIDE 20 MG TAB PO SCH (09:15)
[2017-07-28] MEDS: ASCORBIC ACID 500 MG TAB PO SCH (09:15)
[2017-07-28] MEDS: levETIRAcetam 500 MG TAB PO SCH ×2 (09:15→20:14)
[2017-07-28] MEDS: BACLOFEN 10 MG TAB PO SCH (09:15)
[2017-07-28 12:00] VITALS: BP 105/60
[2017-07-28] MEDS ORDERED: POTASSIUM CHLORIDE 10 MEQ TABER PO SCH ×2 (13:09→13:28)
--- NOTE | 2017-07-28 13:49 | NUR ---
POTASSIUM TABS GIVEN PER ORDER, PT LORENA WELL, POSITION CHANGED FOR COMFORT, WILL REPORT TO PRIMARY NURSE.
--- NOTE | 2017-07-28 15:50 | NUR ---
[facility] ATKINS ORDERED. VINCENZO FLANAGAN FROM [facility] HERE TO EVAL PATIENT.
[2017-07-28 16:00] VITALS: BP 98/51
[2017-07-28] MEDS: ACETAMINOPHEN 325 MG TAB PO PRN ×2 (16:38→22:09)
[2017-07-28] MEDS: ALBUTEROL 0.083% 2.5 MG/3 ML NEBU INH PRN (17:05)
--- NOTE | 2017-07-28 19:15 | NUR ---
PT REPORT GIVEN TO NIGHTSHIFT NURSE AT BEDSIDE. NO S/S OF DISTRESS.
--- NOTE | 2017-07-28 19:16 | NUR ---
RECEIVED PT SLEEPING, EASILY AROUSABLE, AAOX3, VITAL SIGNS STABLE, AFEBRILE, ST WITH 109 BPM, NO SOB NOTED, GREGORIO CATHETER IN PLACE WITH LIGHT MARTA OUTPUT, MAINTAINED ON CONTACT PRECAUTION, SAFETY MEASURES IN PLACE, WILL REPOSITION Q2H AND OFFLOAD PRESSURE AREAS, SEIZURE PRECAUTION WITH SIDE RAILS UP AND PADDED, CALL LIGHT WITHIN REACH.
--- NOTE | 2017-07-28 19:19 | NUR ---
PT WAS FOUND ON 2L NC. SP02 95%. PT WAS NOT IN ANY RESPIRATORY DISTRESS. TX WAS TOLERATED. PLACED PT BACK ON 2L NC.
[2017-07-28 20:00] VITALS: BP 115/63
[2017-07-28] MEDS: rOPINIRole 1 MG TAB PO SCH (20:13)
--- NOTE | 2017-07-28 20:15 | NUR ---
DUE MEDS ADMINISTERED WITH TEACHING PROVIDED, TOLERATED WELL, ALL NEEDS ATTENDED.
[2017-07-28] MEDS: ENOXAPARIN 40 MG/0.4 ML SYR SUBQ SCH (20:19)
--- NOTE | 2017-07-28 22:10 | NUR ---
MEDICATED PRN FOR GENERALIZED PAIN, MEDICATED WITH TYLENOL, REPOSITIONED PT TO LEFT SIDE AND OFFLOAD PRESSURE AREAS, MONITORED CLOSELY.
[2017-07-29] VITALS: BP 101/55
[2017-07-29] MEDS: ALBUTEROL 0.083% 2.5 MG/3 ML NEBU INH SCH ×3 (01:12→13:42)
--- NOTE | 2017-07-29 01:47 | NUR ---
PT ANXIOUS AND RESTLESS, CANNOT GO TO SLEEP, MEDICATED PRN WITH ATIVAN 0.5MG IVP, MONITORED CLOSELY.
--- NOTE | 2017-07-29 03:50 | NUR ---
PT SLEEPING, EASILY AROUSABLE, VITAL SIGNS STABLE, AFEBRILE, DENIES ANY PAIN, NO SOB NOTED, CONTINUE TO REPOSITION Q2H AND OFFLOAD PRESSURE AREAS, MONITORED CLOSELY.
[2017-07-29 04:00] VITALS: BP 96/51
[2017-07-29] MEDS: ACETAMINOPHEN 325 MG TAB PO PRN ×2 (05:38→10:05)
[2017-07-29] MEDS: LEVOTHYROXINE 0.1 MG, LEVOTHYROXINE 0.025 MG PO SCH ×2 (05:38)
--- NOTE | 2017-07-29 05:40 | NUR ---
PT RESTLESS, MEDICATED WITH TYLENOL FOR GENERALIZED PAIN, DUE SYNTHROID ADMINISTERED, NO DISTRESS AT THIS TIME, MONITORED CLOSELY.
--- NOTE | 2017-07-29 06:48 | NUR ---
CHEST X-RAY DONE, NO SEIZURE EPISODE THE WHOLE SHIFT, MONITORED CLOSELY.
--- NOTE | 2017-07-29 07:10 | NUR ---
PT SLEEPING, NO SIGNS OF DISTRESS, REPORT GIVEN TO PATSY VALERO FOR CONTINUITY OF CARE.
--- NOTE | 2017-07-29 07:11 | NUR ---
RECEIVED REPORT FROM LEAD DATABASE ADMINISTRATOR NURSE YOVANY AT BEDSIDE FOR CONTINUITY OF CARE. PT IS AWAKE AND ORIENTED. INTRODUCED SELF AND UPDATED BOARD. GREGORIO CATHETER IN PLACE. ON O2 NC 2L/MIN. O2 SAT 95%. PT WITH PRODUCTIVE COUGH. WHITE SPUTUM NOTED. NO SOB. PT DENIES PAIN. NO SIGNS OF DISTRESS. BED IN LOW POSITION, WHEELS LOCKED, CALL LIGHT WITHIN REACH. WILL CONTINUE TO MONITOR.
[2017-07-29 07:18] LABS: ANION GAP 10.5 (8-16); CARBON DIOXIDE 30.2 mmol/L (21-32); CREATININE 0.5 mg/dL (0.6-1.3); POTASSIUM 3.7 mmol/L (3.5-5.1)
[2017-07-29 07:23] LABS: PHOSPHORUS 3.6 mg/dL (2.5-4.9)
[2017-07-29 08:00] VITALS: BP 98/55
[2017-07-29 08:03] LABS: HEMATOCRIT 31.6 % (36-48); HEMOGLOBIN 10.4 g/dL (12.0-16.0); MEAN CORPUSCULAR HEMOGLOBIN 29 pg (27-31); MEAN CORPUSCULAR HGB CONC 33 g/dL (33-37); MEAN CORPUSCULAR VOLUME 89 fL (80-94); PLATELET COUNT (AUTO) 194 K/uL (140-450); RED BLOOD CELL COUNT(AUTO) 3.54 MIL/uL (4.20-5.40)
[2017-07-29] MEDS: MONTELUKAST SODIUM 10 MG TAB PO SCH (08:47)
[2017-07-29] MEDS: PROCHLORPERAZINE 5 MG TAB PO SCH (08:47)
[2017-07-29] MEDS: BACLOFEN 10 MG TAB PO SCH (08:47)
[2017-07-29] MEDS: OXcarbazepine 150 MG TAB PO SCH (08:47)
[2017-07-29] MEDS: ESCITALOPRAM 20 MG TAB PO SCH (08:48)
[2017-07-29] MEDS: ASCORBIC ACID 500 MG TAB PO SCH (08:48)
[2017-07-29] MEDS: GABAPENTIN 600 MG, GABAPENTIN 200 MG PO SCH ×2 (08:48)
[2017-07-29] MEDS: levETIRAcetam 500 MG TAB PO SCH (08:48)
--- NOTE | 2017-07-29 08:48 | NUR ---
ADMINISTERED SCHEDULED MEDS. GAVE PO MEDS TWO AT A TIME. PT TOLERATED WELL. ASKED FOR [place] MUFFIN FOR BREAKFAST INSTEAD OF UPPER SORBIAN TOAST. ASSISTED PT WITH FEEDING. REPOSITIONED PT TO LYING ON LEFT LATERAL. RESTING COMFORTABLY WATCHING TV. CALL LIGHT WITHIN REACH. WILL CONTINUE TO MONITOR.
[2017-07-29] MEDS ORDERED: FUROSEMIDE 40 MG/4 ML VIAL IVP SCH (09:00)
[2017-07-29 10:18] LABS: LYMPHOCYTES % (MANUAL) 24 % (20-46)
[2017-07-29 10:19] LABS: MONOCYTES % (MANUAL) 12 % (5-12)
--- NOTE | 2017-07-29 10:31 | NUR ---
RECEIVED A CALL FROM VINCENZO FLANAGAN FROM [facility]. THE PATIENT HAS BEEN ACCEPTED TO [facility]. SHE WILL CALL BACK WITH ROOM.
--- NOTE | 2017-07-29 10:32 | NUR ---
VINCENZO FLANAGAN FROM [facility] CALLED. THE PATIENT CAN GO TO ROOM 205B AT [facility] UNDER DR. Owen LOZANO, TELEMETRY BED. THEY CAN TAKE THE PATIENT AT 6 P.M. PHONE REPORT TO [phone]. LI GARNERSENIOR PARALEGAL NURSE AWARE. SHE WILL ARRANGE TRANSPORT
[2017-07-29 12:00] VITALS: BP 113/57
--- NOTE | 2017-07-29 13:42 | NUR ---
ENCOURAGED INTERMITTENT DEEP BREATH AND COUGH DURING HHN THERAPY REFUSES OROPHARYNX SUCTION
[2017-07-29] MEDS ORDERED: LOV40I SUBQ (14:17)
[2017-07-29] MEDS ORDERED: ROC2I IV (14:17)
[2017-07-29 16:00] VITALS: BP 103/59
--- NOTE | 2017-07-29 17:44 | NUR ---
CALLED [facility] [phone] AND GAVE REPORT TO EVAN. GAVE CALL BACK NUMBER AND SIGN LANGUAGE INTERPRETER TIME 6PM.
--- NOTE | 2017-07-29 18:00 | NUR ---
PT D/C TO GO TO [facility]. GAVE D/C FORMS, INSTRUCTIONS, RX, AND LABS. PT VERBALIZED UNDERSTANDING AND SIGNED FORMS. REMOVED TELE MONITOR AND ID BANDS. PER FLORENCE REQUEST, LEFT IV CATHETER 25G TO L HAND AND GREGORIO CATHETER IN PLACE. REPORT GIVEN TO TRANSPORTER. PT LEFT WITH ALL PERSONAL BELONGINGS. LEFT IN STABLE CONDITION.
== END 2017-07-29 18:00 | DRG 871 ==
LOC: MED 21:51 → MTU 07-19 03:51
PROVIDERS: ADMIT Preventive Medicine Preventive Medicine/Occupational Environmental Medicine; ATTEND Preventive Medicine Preventive Medicine/Occupational Environmental Medicine
DX: A41.3 Sepsis due to Hemophilus influenzae (principal); J96.00 Acute respiratory failure, unspecified whether with hypoxia or hypercapnia; J14 Pneumonia due to Hemophilus influenzae; E46 Unspecified protein-calorie malnutrition; N17.9 Acute kidney failure, unspecified; I13.10 Hypertensive heart and chronic kidney disease without heart failure, with stage 1 through stage 4 chronic kidney disease, or unspecified chronic kidney disease; J44.0 Chronic obstructive pulmonary disease with (acute) lower respiratory infection; J44.1 Chronic obstructive pulmonary disease with (acute) exacerbation; D64.9 Anemia, unspecified; F25.9 Schizoaffective disorder, unspecified; R73.9 Hyperglycemia, unspecified; F41.9 Anxiety disorder, unspecified; G40.909 Epilepsy, unspecified, not intractable, without status epilepticus; R07.89 Other chest pain; E03.9 Hypothyroidism, unspecified; I47.9 Paroxysmal tachycardia, unspecified; E66.01 Morbid (severe) obesity due to excess calories; J20.9 Acute bronchitis, unspecified; M79.7 Fibromyalgia; N18.9 Chronic kidney disease, unspecified; T38.0X5A Adverse effect of glucocorticoids and synthetic analogues, initial encounter; Z88.0 Allergy status to penicillin; Z88.1 Allergy status to other antibiotic agents; Z88.5 Allergy status to narcotic agent; Z91.5 Personal history of self-harm; Z68.38 Body mass index [BMI] 38.0-38.9, adult; Z88.2 Allergy status to sulfonamides; Z88.8 Allergy status to other drugs, medicaments and biological substances; Z22.322 Carrier or suspected carrier of Methicillin resistant Staphylococcus aureus; Z86.69 Personal history of other diseases of the nervous system and sense organs; Z87.59 Personal history of other complications of pregnancy, childbirth and the puerperium
CPT/HCPCS: 36415; 36600; 71045; 76770; 80048; 80053; 80202; 81001; 81003; 82803; 82948; 83605; 83690; 83735; 83880; 84100; 84484; 85025; 85610; 85651; 85730; 86140; 87040; 87070; 87081; 87086; 87205; 87804; 93005; 93970; 94640; 96361; 96365; 96375; 97110; 97116; 97140; 97530; 99285; C1758; J0696; J0780; J1450; J1650; J1885; J1940; J1956; J2060; J2185; J2270; J2920; J3370; J3490; J7030; J7042; J7060; J7613; J7620; Q0092; Q0164; Q9967

== ENCOUNTER 2017-12-29 08:14 | Inpatient (IN) | payer OTHER, MEDICAID ==
[~2017-12-29] VITALS: Ht 167.6 cm; Wt 96.2 kg
[~2017-12-29 08:14] MED LIST changes: -CRAN450C PO; +LOV40I SUBQ; -MOT200 PO; +ROC2I IV
--- NOTE | 2017-12-29 08:14 | NUR ---
pt ayedn bls to er bed 07
[2017-12-29 08:16] VITALS: BP 126/98
--- NOTE | 2017-12-29 08:20 | NUR ---
PT. BIB BLS FROM [facility] DUE TO FALL THIS MORNING. PT.STATES " ,MY NURSE FORGOT TO LOCK THE WHEELCHAIR LAST NIGHT, SO WHEN I GOT UP TO GO TO THE RESTROOM IT SLIPPED FROM UNDER ME AND I FELL". PT. DENIES LOC, PT SAYS " I HAVE A LUMP BEHIND MY HEAD. 5/10 PAIN ALL OVER BODY AND DESCRIBED ACHING. PT. IS AWAKE AND ALERT AND ORIENTED X 4. PUPILS EQUAL ROUND AND REACTIVE 3MM BILAT, REACTIVE TO LIGHT. NO SCRATCHES OR OPEN CUTS NOTED. ER MD NOTIFIED. WILL CONTINUE TO MONITOR.
[2017-12-29] MEDS ORDERED: ASPIRIN 81 MG TAB.CHEW PO ONE (08:30)
--- NOTE | 2017-12-29 08:40 | NUR ---
XRAY AT BEDSIDE AT THIS TIME, WILL CONTINUE TO MONITOR . VSS
[2017-12-29] MEDS ORDERED: OXCA300T PO (08:42)
[2017-12-29] MEDS ORDERED: NITR0.4T2 SL (08:42)
[2017-12-29] MEDS ORDERED: MIRABULK PO (08:42)
[2017-12-29] MEDS ORDERED: ASPI81CT89 PO (08:42)
[2017-12-29] MEDS ORDERED: COM5 PO (08:42)
[2017-12-29] MEDS ORDERED: CYCL5TAB2 PO (08:42)
[2017-12-29] MEDS ORDERED: DULO60EC PO (08:42)
[2017-12-29] MEDS ORDERED: BEN50 PO (08:42)
[2017-12-29] MEDS ORDERED: MAGN400S60 PO (08:42)
[2017-12-29 08:49] LABS: BASOPHILS % (AUTO) 0.5 % (0.0-2.0); EOSINOPHILS # (AUTO) 0.3 K/uL (0-0.4); EOSINOPHILS % (AUTO) 3.2 % (0.0-4.0); HEMATOCRIT 41.6 % (36-48); HEMOGLOBIN 13.9 g/dL (12.0-16.0); LYMPHOCYTES % (AUTO) 49.8 % (20.5-51.1); MEAN CORPUSCULAR HEMOGLOBIN 28 pg (27-31); MEAN CORPUSCULAR HGB CONC 33 g/dL (33-37); MEAN CORPUSCULAR VOLUME 84.6 fL (80-94); MONOCYTES # (AUTO) 0.4 K/uL (0.8-1.0); MONOCYTES % (AUTO) 5.4 % (1.7-9.3); NEUTROPHILS # (AUTO) 3.3 K/uL (1.8-7.7); NEUTROPHILS % (AUTO) 41.1 % (42.2-75.2); PLATELET COUNT (AUTO) 120 K/uL (140-450); RED BLOOD CELL COUNT(AUTO) 4.92 MIL/uL (4.20-5.40); RED CELL DISTRIBUTION WIDTH 14.2 % (11.6-13.7); WHITE BLOOD COUNT (AUTO) 8.1 K/uL (4.8-10.8)
[2017-12-29 09:09] LABS: ALBUMIN 3.7 g/dL (3.4-5.0); ANION GAP 10.4 (8-16); CARBON DIOXIDE 29.9 mmol/L (21-32); CREATININE 0.5 mg/dL (0.6-1.3); POTASSIUM 4.3 mmol/L (3.5-5.1); TOTAL BILIRUBIN 0.2 mg/dL (0.0-1.0)
--- NOTE | 2017-12-29 09:29 | NUR ---
Pt. resting comfortably in bed, rr even and unlabored. bed in lowest position. vss. Will continue to monitor.
--- NOTE | 2017-12-29 10:24 | NUR ---
Patient will be admitted to care of DR. SAMSON . Admited to TELE . Will go to room 125B. Belongings list completed. Report to PATSY VALERO.
--- NOTE | 2017-12-29 10:24 | NUR ---
PT ADMITTED TO [facility]. RECEIVED BEDSIDE REPORT FROM ER NURSE PAGE. PT TRANSFERRED TO BED FROM [facility] WITH ASSIST. PT IS AAOX4 INTRODUCED SELF AND UPDATED BOARD. TELE MONITOR APPLIED AND ARM BAND CHECKED. PT ABLE TO STATE PAST MEDICAL HX. PT STATED LAST BM WAS TODAY 12/29. PT DENIES PAIN. NO CHEST PAIN. IV TO L AC 22G INTACT AND SL. LUNG SOUNDS CLEAR ON AUSCULTATION. O2 SAT 95% ON RA. FALL PRECAUTIONS IN PLACE. CALL LIGHT WITHIN REACH. BED IN LOW POSITION, WHEELS LOCKED. BED ALARM ON. WILL CONTINUE TO MONITOR.
[2017-12-29 10:31] LABS: PROTHROMBIN TIME 9.9 secs (10.8-13.4)
[2017-12-29 10:40] LABS: MAGNESIUM 1.8 mg/dL (1.8-2.4); PHOSPHORUS 4.7 mg/dL (2.5-4.9); THYROID STIMULATING HORMONE 0.03 uIU/mL (0.34-3.74)
[2017-12-29 11:38] VITALS: BP 116/59
[2017-12-29] MEDS ORDERED: MAGNESIUM HYDROXIDE 2400 MG/30 ML UDC PO PRN (12:10)
[2017-12-29] MEDS ORDERED: diphenhydrAMINE 50 MG CAP PO PRN (12:10)
[2017-12-29] MEDS ORDERED: PROCHLORPERAZINE 5 MG TAB PO PRN (12:10)
[2017-12-29] MEDS ORDERED: NITROGLYCERIN 0.4 MG TAB SL PRN (12:10)
[2017-12-29] MEDS ORDERED: POLYETHYLENE GLYCOL 17 GM/PKT PO PRN (12:10)
[2017-12-29] MEDS: LORazepam 2 MG/ML VIAL IM/IVP PRN ×5 (12:16→23:36)
--- NOTE | 2017-12-29 12:16 | NUR ---
PT STARTED HAVING SEIZURE. TOLD DR. RUGGIERO AND DR. HARRIS WHO CAME IN AND SAW PT. ADMINISTERED ATIVAN IVP. NO INJURIES TO PT.
[2017-12-29] MEDS ORDERED: LORazepam 2 MG/ML VIAL IM/IVP SCH (12:24)
--- NOTE | 2017-12-29 12:24 | NUR ---
PT HAD SEIZURE ACTIVITY. PER DR. SANDHU ORDERED ATIVAN AND ADMINISTERED IVP. NO INJURIES REPORTED. PT AWAKE AND TALKING TO
[2017-12-29] MEDS ORDERED: OXcarbazepine 150 MG TAB PO SCH ×2 (12:25→21:00)
[2017-12-29] MEDS ORDERED: levETIRAcetam 1,000 MG in NACL 0.9% 100 ML IV SCH ×2 (12:33→21:00)
[2017-12-29] MEDS ORDERED: TOBRAMYCIN LEFT EYE SCH (13:00)
[2017-12-29] MEDS ORDERED: DEXAMETHASONE LEFT EYE SCH (13:00)
--- NOTE | 2017-12-29 13:24 | NUR ---
PT HAD SEIZURE ACTIVITY. ADMINISTERED ATIVAN IVP. NO INJURIES NOTED. REPORTED TO DR. RUGGIERO. PT ABLE TO STAY AWAKE AFTER. SEIZURE PRECAUTIONS IN PLACE
[2017-12-29] MEDS ORDERED: LORazepam 2 MG/ML VIAL IVP SCH (13:36)
--- NOTE | 2017-12-29 13:46 | NUR ---
DR. PEREZ CAME IN AND SAW PT. PER PT HAD NONEPILEPTIC SEIZURE. PT WAS RESTLESS IN BED AND TENSING AT BUE. DR. PEREZ SAID OK TO ADMINISTER ATIVAN IVP. NO INJURIES. WILL CONTINUE TO MONITOR.
[2017-12-29] MEDS: NITROGLYCERIN 0.4 MG TAB SL PRN ×2 (13:54→14:02)
[2017-12-29] MEDS ORDERED: diphenhydrAMINE 50 MG/ML VIAL IVP SCH (15:00)
--- NOTE | 2017-12-29 15:10 | NUR ---
BED ALARM WAS TRIGGERED. PT WAS TRYING TO GET OUT OF BED. STATED "I NEED TO CALL MY MOM." REORIENTED PT AND ASSISTED BACK TO BED. MOVED PT TO ROOM 110A WITH ALL PERSONAL BELONGINGS. WILL CONTINUE TO MONITOR.
[2017-12-29 16:00] VITALS: BP 107/70
--- NOTE | 2017-12-29 17:34 | NUR ---
PT WAS RESTLESS IN BED AND KEPT TURNING FROM SIDE TO SIDE. EYES TWITCHING. DR. HARRIS CAME IN AND SAW PT. PT WAS COMPLAINING OF PAIN ON HER LOWER LEGS. ORDERED MORPHINE IVP FOR PAIN. ADMINISTERED MORPHINE. PT WAS THEN SAYING "WHERE IS MY MOM." REORIENTED PT. PT STILL RESTLESS. NO INJURIES. WILL CONTINUE TO MONITOR.
--- NOTE | 2017-12-29 17:49 | NUR ---
PT WAS GIVEN ATIVAN ORDERED. PT UNABLE TO STAY STILL AFTER SHIPPING CLERK. CT SCAN NOT DONE AT THIS TIME. INFORMED TECH AND DR. HARRIS. NO INJURIES. WILL CONTINUE TO MONITOR.
[2017-12-29] MEDS ORDERED: MORPHINE SULFATE 2 MG/ML SYR IVP SCH (18:00)
--- NOTE | 2017-12-29 18:26 | NUR ---
PT WAS RESTLESS IN BED. PT UNABLE TO EAT DINNER TRAY AT THIS TIME. ASPIRATION PRECAUTIONS IN PLACE. PT KEPT TRYING TO GET FOOD FROM TRAY. PT STILL RESTLESS. REMOVED DINNER TRAY. NO INJURIES. WILL CONTINUE TO MONITOR.
--- NOTE | 2017-12-29 19:15 | NUR ---
ENDORSED PT TO FILM LIBRARY CLERK NURSE ALEXSANDER AT BEDSIDE FOR CONTINUITY OF CARE. PT SLEEPING NOW. IN STABLE CONDITION.
--- NOTE | 2017-12-29 19:16 | NUR ---
RECEIVED REPORT FROM DAY SHIFT NURSE STONE-PATSY. PT IS AAOX4- SLEEPING IN BED. ON ROOM AIR WITH IV TO L AC 22G INTACT AND SL. LUNG SOUNDS CLEAR ON AUSCULTATION. O2 SAT 94% ON RA. DISCUSSED PLAN OF CARE HOWEVER PT DEEP IN SLEEP. WILL REPLY TO NAME HOWEVER VERY DROWSY. NO S/S OF RESPIRATORY DISTRESS OR DISCOMFORT NOTED AT THIS TIME. FALL PRECAUTIONS IN PLACE. CALL LIGHT WITHIN REACH. BED IN LOW POSITION, WHEELS LOCKED. BED ALARM ON. WILL CONTINUE TO MONITOR.
[2017-12-29 20:00] VITALS: BP 139/89
--- NOTE | 2017-12-29 20:00 | NUR ---
VITAL SIGNS TAKEN AND TOLERATED WELL. NO S/S OF RESPIRATORY DISTRESS OR DISCOMFORT NOTED AT THIS TIME. WILL CONTINUE TO MONITOR.
[2017-12-29] MEDS ORDERED: CYCLOBENZAPRINE HCL 10 MG PO SCH (21:00)
[2017-12-29] MEDS: CYCLOBENZAPRINE 10 MG TAB PO SCH (21:27)
[2017-12-29] MEDS: OXcarbazepine 150 MG TAB PO SCH (21:27)
[2017-12-29] MEDS: METOPROLOL 25 MG TAB PO SCH (21:28)
[2017-12-29] MEDS: levETIRAcetam 1,000 MG in NACL 0.9% 100 ML IV SCH (21:29)
[2017-12-29] MEDS: rOPINIRole 1 MG TAB PO SCH (21:29)
--- NOTE | 2017-12-29 21:30 | NUR ---
SCHEDULED MEDICATION GIVEN AND TOLERATED WELL. NO S/S OF RESPIRATORY DISTRESS OR DISCOMFORT NOTED AT THIS TIME. WILL CONTINUE TO MONITOR.
--- NOTE | 2017-12-29 23:00 | NUR ---
PT SLEEPING IN BED. NO S/S OF RESPIRATORY DISTRESS OR DISCOMFORT NOTED AT THIS TIME. WILL CONTINUE TO MONITOR.
--- NOTE | 2017-12-29 23:40 | NUR ---
SPOKE WITH RADHA FROM CT. PT HAS BEEN UNABLE TO HAVE CT DONE SINCE SHE HAS BEEN SO RESTLESS. SPOKE WITH DR. COELLO ABOUT GIVING ATIVAN FOR RESTLESSNESS AND HE SAID I SHOULD SO THAT PT COULD BE CALM FOR THE CT SCAN AND HAVE AN ACCURATE RESULT. ADMINISTERED ATIVAN IVP AND PT TOLERATED WELL. NO S/S OF RESPIRATORY DISTRESS OR DISCOMFORT NOTED AT THIS TIME. WILL CONTINUE TO MONITOR.
--- NOTE | 2017-12-29 23:40 | NUR ---
VITAL SIGNS TAKEN AND TOLERATED WELL. NO S/S OF RESPIRATORY DISTRESS OR DISCOMFORT NOTED AT THIS TIME. WILL CONTINUE TO MONITOR.
[2017-12-30] VITALS: BP 118/74
--- NOTE | 2017-12-30 00:45 | NUR ---
CALLED CT AND RD EXTENSIONS HOWEVER THERE HAS BEEN NO ANSWER. WILL CONTINUE TO CALL. PT IS CALM AND READY FOR CT SCAN.
--- NOTE | 2017-12-30 01:20 | NUR ---
SPOKE WITH RADHA AND WAS TOLD TO BRING PT TO CT IF POSSIBLE BECAUSE SHE WAS WAITING ON PT FROM ER. WILL ENDORSE TO EMT PETE TO TAKE PT TO CT.
--- NOTE | 2017-12-30 01:23 | NUR ---
SPOKE WITH RADHA AND WAS TOLD TO WAIT 10 MINUTES BEFORE TRANSFERRING PT TO CT.
--- NOTE | 2017-12-30 01:33 | NUR ---
PETE AND I WERE GETTING PT OUT OF THE ROOM, RADHA CALLED AND SPOKE TO CARLY-PATSY. SHE SAID THAT SHE HAD AN EMERGENCY IN ER AND WAS NOT ABLE TO DO CT AT THIS TIME. WILL CALL BACK LATER.
--- NOTE | 2017-12-30 02:00 | NUR ---
PT SLEEPING IN BED. NO S/S OF RESPIRATORY DISTRESS OR DISCOMFORT NOTED AT THIS TIME. WILL CONTINUE TO MONITOR.
--- NOTE | 2017-12-30 02:00 | NUR ---
PETE HAS CONTINUED TO CALL RADHA WITH NO ANSWER AT THIS TIME. WILL CONTINUE TO CALL BACK.
--- NOTE | 2017-12-30 02:58 | NUR ---
PT TRIED TO GET UP FROM BED. PT CONFUSED. REORIENTED PT TO HOSPITAL SETTING. EMT PETE ASSISTED WITH PLACING PT BACK IN BED COMFORTABLY. COVERED PT WITH BLANKET. NO S/S OF RESPIRATORY DISTRESS OR DISCOMFORT NOTED AT THIS TIME. WILL CONTINUE TO MONITOR.
[2017-12-30 04:00] VITALS: BP 102/57
--- NOTE | 2017-12-30 04:00 | NUR ---
VITAL SIGNS TAKEN AND TOLERATED WELL. NO S/S OF RESPIRATORY DISTRESS OR DISCOMFORT NOTED AT THIS TIME. WILL CONTINUE TO MONITOR.
--- NOTE | 2017-12-30 05:24 | NUR ---
PT KEEPS SITTING UP IN BED, ATTEMPTING TO GET OUT OF BED. PT STATED "MY MOM IS CALLING ME." I TOLD HER I WOULD LET HER KNOW WHEN SHE ARRIVED. PT STATED, "SHE'S RIGHT THERE" POINTING TO THE WHITE BOARD. REORIENTED PT TO HOSPITAL SETTING AND THAT NO ONE WAS STANDING IN THAT DIRECTIONS. TOLD PT THAT I WOULD RETURN WITH MORNING MEDICATION SYNTHROID AND ATIVAN FOR AGITATION IN PREPARATION FOR CT SCAN. PT SLOWLY STARTED TO MOVE BACK AND ASSISTED PT BACK TO LAYING IN BED. PT RESTING IN BED COMFORTABLY NOW. NO S/S OF RESPIRATORY DISTRESS OR DISCOMFORT NOTED AT THIS TIME. WILL CONTINUE TO MONITOR.
[2017-12-30] MEDS: LORazepam 2 MG/ML VIAL IM/IVP PRN (05:39)
--- NOTE | 2017-12-30 05:40 | NUR ---
SCHEDULED MEDICATION SYNTHROID GIVEN AND TOLERATED WELL. ATIVAN GIVEN FOR PENDING CT SCAN. PT TOLERATED WELL. NO S/S OF RESPIRATORY DISTRESS OR DISCOMFORT NOTED AT THIS TIME. WILL CONTINUE TO MONITOR.
--- NOTE | 2017-12-30 06:00 | NUR ---
RADHA CALLED STATING SHE WILL BE ON HER WAY SHORTLY.
[2017-12-30 06:18] LABS: T4 (THYROXINE) 8.6 ug/dL (4.5-12.0)
[2017-12-30] MEDS ORDERED: LEVOTHYROXINE 0.025 MG TAB PO SCH (06:30)
[2017-12-30] MEDS ORDERED: LEVOTHYROXINE 0.025 MG, LEVOTHYROXINE 0.1 MG PO SCH ×2 (06:30)
--- NOTE | 2017-12-30 07:04 | NUR ---
ENDORSED PT CARE TO DAY SHIFT NURSE MIGEL FOR CONTINUITY OF CARE.
--- NOTE | 2017-12-30 07:05 | NUR ---
RECEIVED REPORT FROM FOILING MACHINE OPERATOR NURSE ALEXSANDER AT BEDSIDE FOR CONTINUITY OF CARE. PT IS ASLEEP BUT ABLE TO WAKE UP WHEN SPOKEN TO. INTRODUCED SELF AND UPDATED BOARD. PT DENIES PAIN. O2 SAT 100% ON RA. NO SOB. NO COUGH. NO SEIZURE ACTIVITY NOTED. CALL LIGHT WITHIN REACH. BED IN LOW POSITION. SEIZURE AND ASPIRATION PRECAUTIONS IN PLACE. WILL CONTINUE TO MONITOR.
[2017-12-30 07:11] LABS: BASOPHILS % (AUTO) 0.5 % (0.0-2.0); EOSINOPHILS # (AUTO) 0.1 K/uL (0-0.4); EOSINOPHILS % (AUTO) 1.2 % (0.0-4.0); HEMATOCRIT 44.2 % (36-48); HEMOGLOBIN 14.9 g/dL (12.0-16.0); LYMPHOCYTES # (AUTO) 3.9 K/uL (2.5-16.5); LYMPHOCYTES % (AUTO) 43.2 % (20.5-51.1); MEAN CORPUSCULAR HEMOGLOBIN 29 pg (27-31); MEAN CORPUSCULAR HGB CONC 34 g/dL (33-37); MEAN CORPUSCULAR VOLUME 84.3 fL (80-94); MONOCYTES # (AUTO) 0.5 K/uL (0.8-1.0); NEUTROPHILS # (AUTO) 4.6 K/uL (1.8-7.7); NEUTROPHILS % (AUTO) 50.1 % (42.2-75.2); PLATELET COUNT (AUTO) 140 K/uL (140-450); RED BLOOD CELL COUNT(AUTO) 5.24 MIL/uL (4.20-5.40); WHITE BLOOD COUNT (AUTO) 9.1 K/uL (4.8-10.8)
[2017-12-30 07:17] LABS: MAGNESIUM 1.9 mg/dL (1.8-2.4); PHOSPHORUS 4.1 mg/dL (2.5-4.9)
[2017-12-30 08:00] VITALS: BP 103/67
[2017-12-30 08:11] LABS: ANION GAP 14.1 (8-16); CARBON DIOXIDE 25.9 mmol/L (21-32); CREATININE 0.5 mg/dL (0.6-1.3)
--- NOTE | 2017-12-30 08:30 | NUR ---
PT SITTING UP IN BED EATING BREAKFAST. PT TOLERATING FOOD WELL. NO SIGNS OF DISTRESS. CALL LIGHT WITHIN REACH. WILL CONTINUE TO MONITOR
--- NOTE | 2017-12-30 08:36 | NUR ---
PATIENT HAS BEEN SCREENED AND CATEGORIZED MODERATE NUTRITION RISK. PATIENT WILL BE SEEN WITHIN 3-5 DAYS OF ADMISSION. 12/31/17 01/02/[address]
[2017-12-30] MEDS ORDERED: ASPIRIN 81 MG TAB.CHEW PO SCH (09:00)
--- NOTE | 2017-12-30 10:00 | NUR ---
PT OFF UNIT FOR CT SCAN OF HEAD. PT IS CALM RIGHT NOW. NO RESTLESSNESS OR SEIZURE ACTIVITY NOTED.
[2017-12-30] MEDS: OXcarbazepine 150 MG TAB PO SCH ×2 (10:35→20:38)
[2017-12-30] MEDS: DULoxetine 30 MG CAPDR PO SCH (10:35)
[2017-12-30] MEDS: METOPROLOL 25 MG TAB PO SCH ×2 (10:36→20:37)
[2017-12-30] MEDS: ASCORBIC ACID 500 MG TAB PO SCH (10:36)
[2017-12-30] MEDS: ATORVASTATIN 20 MG TAB PO SCH (10:36)
[2017-12-30] MEDS: GABAPENTIN 300 MG CAP PO SCH (10:37)
[2017-12-30] MEDS: MONTELUKAST SODIUM 10 MG TAB PO SCH (10:37)
[2017-12-30] MEDS: LISINOPRIL 5 MG TAB PO SCH (10:37)
[2017-12-30] MEDS: CYCLOBENZAPRINE 10 MG TAB PO SCH ×2 (10:37→20:37)
[2017-12-30] MEDS: ASPIRIN 81 MG TAB.CHEW PO SCH (10:37)
[2017-12-30] MEDS: levETIRAcetam 1,000 MG in NACL 0.9% 100 ML IV SCH ×2 (10:38→20:38)
[2017-12-30 12:00] VITALS: BP_SYST 112; BP_SYST 134; BP_DIAS 63; BP_DIAS 70
--- NOTE | 2017-12-30 13:33 | NUR ---
PT SLEEPING WITH VISIBLE RESPIRATIONS. ASKED IF PT NEEDED ANYTHING, PT STATED "NO." NO RESTLESSNESS OR SEIZURE ACTIVITY NOTED. CALL LIGHT WITHIN REACH. BED ALARM ON, WILL CONTINUE TO MONITOR.
[2017-12-30 16:00] VITALS: BP 109/64
--- NOTE | 2017-12-30 16:32 | NUR ---
BED ALARM WENT ON, PT WAS SITTING UP IN BED TRYING TO GET OUT AND SAYING "I NEED TO GO TO MY MOMMY." REORIENTED PT AND STATED THAT PT'S MOM IS NOT HERE. ASSISTED PT BACK TO BED. NO SIGNS OF DISTRESS. BED ALARM ON. WILL CONTINUE TO MONITOR.
--- NOTE | 2017-12-30 19:25 | NUR ---
ENDORSED PT TO PEGA DEVELOPER NURSE ALEXSANDER AT BEDSIDE FOR CONTINUITY OF CARE. PT IN STABLE CONDITION.
--- NOTE | 2017-12-30 19:26 | NUR ---
RECEIVED REPORT FROM DAY SHIFT NURSE STONE-PATSY. PT IS AAOX4- RESTING IN BED. ON ROOM AIR WITH IV TO L AC 22G INTACT AND SL. LUNG SOUNDS CLEAR ON AUSCULTATION. O2 SAT 94% ON RA. DISCUSSED PLAN OF CARE AND PT VERBALIZED UNDERSTANDING. NO S/S OF RESPIRATORY DISTRESS OR DISCOMFORT NOTED AT THIS TIME. FALL PRECAUTIONS IN PLACE. CALL LIGHT WITHIN REACH. BED IN LOW POSITION, WHEELS LOCKED. BED ALARM ON. WILL CONTINUE TO MONITOR.
[2017-12-30 20:00] VITALS: BP 104/52
--- NOTE | 2017-12-30 20:00 | NUR ---
VITAL SIGNS TAKEN AND TOLERATED WELL. NO S/S OF RESPIRATORY DISTRESS OR DISCOMFORT NOTED AT THIS TIME. WILL CONTINUE TO MONITOR.
[2017-12-30] MEDS: rOPINIRole 1 MG TAB PO SCH (20:38)
[2017-12-30] MEDS: NITROGLYCERIN 0.4 MG TAB SL PRN ×3 (20:39→21:17)
--- NOTE | 2017-12-30 20:40 | NUR ---
SCHEDULED MEDICATION GIVEN AND TOLERATED WELL. PT C/O CHEST PAIN 01/18- DR. COELLO AWARE AND WAS ORDERED TO GIVE NITROSTAT. MD ORDERED TROPONIN LEVELS AND EKG. PT TOLERATED WELL. NO S/S OF RESPIRATORY DISTRESS OR DISCOMFORT NOTED. WILL CONTINUE TO MONITOR.
[2017-12-30] MEDS: BENZOCAINE/MENTHOL 1 LOZ MM PRN (20:59)
--- NOTE | 2017-12-30 21:00 | NUR ---
PT CONTINUES TO C/O CHEST PAIN /[address] COELLO AWARE. ORDERED TO GIVE SECOND DOSE OF NITROSTAT. CEPACOL GIVEN. PT TOLERATED WELL. NO S/S OF RESPIRATORY DISTRESS OR DISCOMFORT NOTED AT THIS TIME. WILL CONTINUE TO MONITOR.
--- NOTE | 2017-12-30 21:17 | NUR ---
PT CONTINUES TO C/O CHEST PAIN 11/17. DR. COELLO AWARE. ORDERED TO GIVE THIRD DOSE OF NITROSTAT. PT TOLERATED WELL. PIPELINE EXECUTIVE IN PT ROOM DRAWING BLOOD. EKG IN PROGRESS WHEN LEAVING PT ROOM AFTER MEDICATION ADMINISTRATION. NO S/S OF RESPIRATORY DISTRESS OR DISCOMFORT NOTED AT THIS TIME. WILL CONTINUE TO MONITOR.
--- NOTE | 2017-12-30 21:25 | NUR ---
PT ASLEEP IN BED. NO S/S OF RESPIRATORY DISTRESS OR DISCOMFORT NOTED AT THIS TIME. WILL CONTINUE TO MONITOR.
--- NOTE | 2017-12-30 23:00 | NUR ---
PT CONTINUES TO SLEEP. NO S/S OF RESPIRATORY DISTRESS OR DISCOMFORT NOTED AT THIS TIME. WILL CONTINUE TO MONITOR.
[2017-12-31] VITALS: BP 97/43
--- NOTE | 2017-12-31 | NUR ---
VITAL SIGNS TAKEN AND TOLERATED WELL. NO S/S OF RESPIRATORY DISTRESS OR DISCOMFORT NOTED AT THIS TIME. WILL CONTINUE TO MONITOR.
--- NOTE | 2017-12-31 02:00 | NUR ---
PT CONTINUES TO SLEEP IN BED. NO S/S OF RESPIRATORY DISTRESS OR DISCOMFORT NOTED AT THIS TIME. WILL CONTINUE TO MONITOR.
[2017-12-31 04:00] VITALS: BP 89/45
--- NOTE | 2017-12-31 04:00 | NUR ---
VITAL SIGNS TAKEN AND TOLERATED WELL. BP DECREASED NOTED. NO S/S OF RESPIRATORY DISTRESS OR DISCOMFORT NOTED AT THIS TIME. WILL CONTINUE TO MONITOR.
[2017-12-31] MEDS: LORazepam 2 MG/ML VIAL IM/IVP PRN ×4 (06:00→20:03)
--- NOTE | 2017-12-31 06:00 | NUR ---
PT HAD PSEUDOSEIZURE LASTING APROX. [address] COELLO AND DR. LUI AWARE AND WITNESSED. 2MG OF ATIVAN GIVEN BY CHARGE NURSE ADRIANA. NO INJURIES. IF SECOND SEIZURE HAPPENS DR. MERINO SAID TO PLACE NEW ORDER OF ATIVAN 2MG AND ADMINISTER. NO S/S OF RESPIRATORY DISTRESS OR DISCOMFORT NOTED AT THIS TIME. PT REQUESTING i STAY WITH HER IN THE ROOM BECAUSE SHE FEELS LIKE SHE WILL HAVE ANOTHER SEIZURE. WILL CONTINUE TO MONITOR.
--- NOTE | 2017-12-31 06:10 | NUR ---
SECOND PSEUDOSEIZURE LASTING 2.5 MINUTES. NO INJURIES. CALLED DR. KAPOOR AND IS AWARE AND INSTRUCTED ME TO GIVE ATIVAN 2MG. MEDICATION ADMINISTERED AND TOLERATED WELL. NO S/S OF RESPIRATORY DISTRESS OR DISCOMFORT NOTED AT THIS TIME. WILL CONTINUE TO MONITOR.
[2017-12-31] MEDS ORDERED: LORazepam 2 MG/ML VIAL ONE (06:15)
--- NOTE | 2017-12-31 06:20 | NUR ---
3RD SEIZURE. LASTING 3 MINUTES. FAST FOOD ASSISTANT RESTAURANT MANAGER LACIE PRESENT. NO INJURIES. NO S/S OF RESPIRATORY DISTRESS OR DISCOMFORT NOTED AT THIS TIME. WILL CONTINUE TO MONITOR.
[2017-12-31] MEDS: LEVOTHYROXINE 0.05 MG TAB PO SCH (06:30)
--- NOTE | 2017-12-31 06:30 | NUR ---
4TH PSEUDOSEIZURE LASTING 4.5 MINUTES. NO INJURIES. SUMMER-RN CALLED MD, THEY ARE AWARE. WILL BE PLACING ORDERS.
--- NOTE | 2017-12-31 06:50 | NUR ---
5TH PSEUDOSEIZURE LASTING 3.5 MINUTES. 3RD DOSE OF ATIVAN GIVEN. HYDRAULIC DREDGE OPERATOR RAFY -PATSY PRESENT. NO INJURIES. NO S/S OF RESPIRATORY DISTRESS OR DISCOMFORT NOTED AT THIS TIME. PT CONTINUES TO SAT 94%. WILL CONTINUE TO MONITOR.
[2017-12-31] MEDS ORDERED: LORazepam 2 MG/ML VIAL IM/IVP SCH (07:00)
[2017-12-31] MEDS ORDERED: LORazepam 2 MG/ML VIAL IVP SCH (07:00)
--- NOTE | 2017-12-31 07:20 | NUR ---
ENDORSED PT CARE TO DAY SHIFT NURSE BETTY FOR CONTINUITY OF CARE. PT CONTINUES TO HAVE SEIZURE ACTIVITY ON AND OFF.
--- NOTE | 2017-12-31 07:20 | NUR ---
RECEIVED PT REPORT FROM MACHINE STONECUTTER NURSE RN. PT IS HAVING SEIZURE,HITTING PADDED BED RAIL WITH HER HAND, ON 2L O2, SATURATION 93%, IV TO L AC 22G INFILTRATED. ATIVAN GIVEN IM. NO S/S OF RESPIRATORY DISTRESS OR DISCOMFORT NOTED AT THIS TIME. FALL PRECAUTIONS IN PLACE. CALL LIGHT WITHIN REACH. BED IN LOWEST POSITION, WHEELS LOCKED. BED ALARM ON. WILL CONTINUE TO MONITOR.
[2017-12-31 08:00] VITALS: BP 102/77
[2017-12-31 08:17] LABS: BASOPHILS # (AUTO) 0.1 K/uL (0.00-0.22); BASOPHILS % (AUTO) 0.5 % (0.0-2.0); EOSINOPHILS # (AUTO) 0.2 K/uL (0-0.4); EOSINOPHILS % (AUTO) 1.6 % (0.0-4.0); HEMATOCRIT 39.9 % (36-48); HEMOGLOBIN 13.4 g/dL (12.0-16.0); LYMPHOCYTES # (AUTO) 4.9 K/uL (2.5-16.5); LYMPHOCYTES % (AUTO) 46.1 % (20.5-51.1); MEAN CORPUSCULAR HEMOGLOBIN 28 pg (27-31); MEAN CORPUSCULAR HGB CONC 34 g/dL (33-37); MEAN CORPUSCULAR VOLUME 83.2 fL (80-94); MONOCYTES # (AUTO) 0.5 K/uL (0.8-1.0); MONOCYTES % (AUTO) 4.7 % (1.7-9.3); NEUTROPHILS % (AUTO) 47.1 % (42.2-75.2); PLATELET COUNT (AUTO) 128 K/uL (140-450); RED CELL DISTRIBUTION WIDTH 14.2 % (11.6-13.7); WHITE BLOOD COUNT (AUTO) 10.6 K/uL (4.8-10.8)
[2017-12-31 08:37] LABS: ANION GAP 10.9 (8-16); CARBON DIOXIDE 24.9 mmol/L (21-32); CREATININE 0.5 mg/dL (0.6-1.3); POTASSIUM 3.8 mmol/L (3.5-5.1)
[2017-12-31 08:40] LABS: MAGNESIUM 1.8 mg/dL (1.8-2.4); PHOSPHORUS 3.9 mg/dL (2.5-4.9)
[2017-12-31] MEDS: METOPROLOL 25 MG TAB PO SCH ×2 (09:00→22:03)
[2017-12-31] MEDS: LISINOPRIL 5 MG TAB PO SCH (09:00)
[2017-12-31] MEDS: ATORVASTATIN 20 MG TAB PO SCH (09:05)
[2017-12-31] MEDS: ASPIRIN 81 MG TAB.CHEW PO SCH (09:05)
[2017-12-31] MEDS: CYCLOBENZAPRINE 10 MG TAB PO SCH ×2 (09:05→22:02)
[2017-12-31] MEDS: OXcarbazepine 150 MG TAB PO SCH ×2 (09:05→22:03)
[2017-12-31] MEDS: MONTELUKAST SODIUM 10 MG TAB PO SCH (09:05)
[2017-12-31] MEDS: ASCORBIC ACID 500 MG TAB PO SCH (09:06)
[2017-12-31] MEDS: DULoxetine 30 MG CAPDR PO SCH (09:06)
[2017-12-31] MEDS: GABAPENTIN 300 MG CAP PO SCH (09:06)
--- NOTE | 2017-12-31 09:23 | NUR ---
PT VOMITED BREAKFAST. TURNED PT TO LEFT SIDE, SUCTION PERFORMED. CALLED [facility] FOR CLEAN UP LINENS.
--- NOTE | 2017-12-31 09:50 | NUR ---
CALLED PHARM [facility].
--- NOTE | 2017-12-31 10:10 | NUR ---
REPORTED PT VOMITING TO DR RUGGIERO. WILL GIVE ZOFRAN
[2017-12-31] MEDS ORDERED: ONDANSETRON 4 MG/2 ML VIAL IVP PRN (10:15)
--- NOTE | 2017-12-31 10:25 | NUR ---
REPORTED TO DR RUGGIERO THAT PT HAD MULTIPLE SEIZURES THIS MORNING. Addendum: 12/31/17 at 1741 by Zane Rucker RN PT WAS SITTING IN THE WHEELCHAIR, ANOTHER SEIZURE LASTED 3.5 MIN, ATIVAN WAS GIVEN.
--- NOTE | 2017-12-31 10:30 | NUR ---
PT HAS PLACED BACK TO BED, O2 MONITOR AT BEDSIDE, 94% ON RM AIR. NO S/S OF DISTRESS
[2017-12-31] MEDS: levETIRAcetam 1,000 MG in NACL 0.9% 100 ML IV SCH ×2 (10:41→21:34)
[2017-12-31 12:00] VITALS: BP 120/71
[2017-12-31 16:00] VITALS: BP 125/70
--- NOTE | 2017-12-31 17:09 | NUR ---
Mine Expert Note: Per admission coordinator Delicia from [facility] , patient is on a 7 day bed hold and is one of their short term patients. She stated this week their staff was in the process of assisting patient and patient's sister Edgar Abbott with finding patient an assisted living facility or board and care. Delicia stated patient has an existing Advance Directive and patient's father Earle Hernandez / is patient's primary agent and patient's sister Edgar Abbott is secondary agent. Delicia reported Earle is experiencing health problems, therefore, they have been communicating with Edgar instead. I requested for Delicia to fax me Advance Directive. I received and reviewed Advance Directive. Documents indicate Earle Hernandez / is patient's primary agent and patient's sister Edgar Abbott secondary. I called and spoke with Edgar, she stated she would like patient to return to [place] upon discharge. She reported patient at times expresses unrealistic request, such as assistance with finding an apartment so she can live alone. She stated patient isn't physically or mentally capable of living alone. I informed patient's healthcare decision maker Edgar would like patient to return to [place] upon discharge.
--- NOTE | 2017-12-31 19:30 | NUR ---
ENDORSED PT TO PETROPHYSICAL ENGINEER NURSE FOR CONTINUITY OF CARE. PT IN STABLE CONDITION, IN BED, USING HER CELL PHONE.
--- NOTE | 2017-12-31 19:31 | NUR ---
RECD. RESTING IN BED, AWAKE, A/OX4. SEEMS DROWSY. RESPIRATION EVEN AND UNLABORED. LUNGS CLEAR ON BILATERAL AUSCULTATION. COMPLAINT OF EVERY TIME SHE BREATHS SHE SEEMS TO BE HAVING CHEST PAIN. REPOSITIONED IN BED, ADDED PILLOWS AND HOB ELEVATED AND INSTRUCTED TO ASSUMED UPRIGHT POSITION. STATED FEELS BETTER. IV SALINE LOCK AT THE RIGHT FOREARM PATENT AND INTACT. SIDE RAILS PADDED, SEIZURE PRECAUTION. PLANNED OF CARE FOR THE SHIFT DISCUSSED. VERBALIZED UNDERSTANDING. DENIES PAIN 0/10.
--- NOTE | 2017-12-31 19:34 | NUR ---
PATIENT STARTED TO HAVE SEIZURE FOR ABOUT 40 SECONDS, BP INCREASED 210,89, HR - 103. SAFETY MAINTAINED.
[2017-12-31 20:00] VITALS: BP 116/65
--- NOTE | 2017-12-31 20:01 | NUR ---
RESTING IN BED, HAD FALLEN ASLEEP. BP - 116/63, HR -91, 02 SAT - 90 TO 91%. PUT ON 02 AT 2 L BY N/C, 02 SAT - 94-95%.
--- NOTE | 2017-12-31 20:03 | NUR ---
MEDICATED WITH ATIVAN 2 MG. IM ORDERED.
--- NOTE | 2017-12-31 21:30 | NUR ---
Patient's Plan of Care was discussed and reviewed with FARMWORKER BR[employer]: KEMI EPPS
[2017-12-31] MEDS: rOPINIRole 1 MG TAB PO SCH (22:09)
[2017-12-31] MEDS: BENZOCAINE/MENTHOL 1 LOZ MM PRN (23:35)
[2018-01-01] VITALS: BP 93/56
[2018-01-01 03:17] VITALS: BP 127/78
[2018-01-01] MEDS: LORazepam 2 MG/ML VIAL IM/IVP PRN (03:17)
--- NOTE | 2018-01-01 03:24 | NUR ---
PATSY SQUIRES CALLED AND SAID PT IS HAVING SEIZURE. CHECKED ON PT. COMPOSING ROOM MACHINIST APPRENTICEGLADYS WRIGHT AT BEDSIDE ASSESSING PT ,TAKING VITAL SIGNS. SEIZURE STARTED 313 AND LASTED @ 10 MINUTES. ATIVAN 2 MG IVP @318 ORDERED. WILL CONTINUE TO MONITOR.
--- NOTE | 2018-01-01 06:20 | NUR ---
SLEEPING COMFORTABLY, SAFETY MAINTAINED DURING SHIFT. ENDORSED TO AM NURSE FOR CONTINUITY OF CARE.
[2018-01-01] MEDS: LEVOTHYROXINE 0.05 MG TAB PO SCH (06:32)
--- NOTE | 2018-01-01 07:20 | NUR ---
RECEIVED PT REPORT FROM SONG WRITER NURSE. PT IS AWAKE, ALERT, OX3. O2 SATURATION 95% ON RM AIR, IV TO R FA 22G, ASYMPTOMATIC, PATENT AND INTACT. PT IS RESTING IN BED, NO S/S OF RESPIRATORY DISTRESS OR DISCOMFORT NOTED AT THIS TIME. FALL PRECAUTIONS IN PLACE. CALL LIGHT WITHIN REACH. BED IN LOWEST POSITION, WHEELS LOCKED. BED ALARM ON. WILL CONTINUE TO MONITOR.
[2018-01-01 08:00] VITALS: BP 114/64
--- NOTE | 2018-01-01 08:00 | NUR ---
PT EATING BREAKFAST INDEPENDENTLY, NO S/S OF DISTRESS.
[2018-01-01] MEDS ORDERED: LISI-424 PO (08:40)
[2018-01-01] MEDS ORDERED: SYN.05 PO (08:40)
[2018-01-01] MEDS ORDERED: [UNRECOGNIZED DRUG - CODE] PO (08:40)
[2018-01-01] MEDS ORDERED: METO25TA PO (08:40)
[2018-01-01] MEDS: LISINOPRIL 5 MG TAB PO SCH (09:00)
[2018-01-01] MEDS: GABAPENTIN 300 MG CAP PO SCH (09:13)
[2018-01-01] MEDS: MONTELUKAST SODIUM 10 MG TAB PO SCH (09:13)
[2018-01-01] MEDS: ATORVASTATIN 20 MG TAB PO SCH (09:13)
[2018-01-01] MEDS: OXcarbazepine 150 MG TAB PO SCH (09:13)
[2018-01-01] MEDS: CYCLOBENZAPRINE 10 MG TAB PO SCH (09:14)
[2018-01-01] MEDS: ASCORBIC ACID 500 MG TAB PO SCH (09:14)
[2018-01-01] MEDS: METOPROLOL 25 MG TAB PO SCH (09:14)
[2018-01-01] MEDS: levETIRAcetam 1,000 MG in NACL 0.9% 100 ML IV SCH (09:16)
[2018-01-01] MEDS: ASPIRIN 81 MG TAB.CHEW PO SCH (09:16)
[2018-01-01] MEDS: DULoxetine 30 MG CAPDR PO SCH (09:16)
--- NOTE | 2018-01-01 10:10 | NUR ---
PT USED BEDSIDE COMMODE. RETURNED TO BED SAFELY WITH ASSISTANCE.
--- NOTE | 2018-01-01 11:48 | NUR ---
Cotton Cleaner Note: Per admission coordinator Delicia from [facility] / , patient may return to room 34C anytime today, accepting physician is , pillowcase cleaner Fiorella burton.
--- NOTE | 2018-01-01 11:57 | NUR ---
CALLED [facility] AND SET UP TRANSPORT FOR 1:30P.Csaie ARAUJO RN AWARE. I INFORMED HIM THAT THE PATIENT WILL GO TO [address] AT [facility] UNDER [address]. FAYE PHONE REPORT TO [phone]
[2018-01-01 12:00] VITALS: BP 121/80
--- NOTE | 2018-01-01 12:50 | NUR ---
CALLED [facility] [phone], REPORT GIVEN TO NURSE RIVER. PT GOING TO [address]. UNDER CARE OF DR FAYE. ALSO CALLED AUNDREA LARA, PT'S FATHER, NO ANSWERING OR VOICE MAIL.
--- NOTE | 2018-01-01 13:25 | NUR ---
DISCHARGE INSTRUCTION AND MED TEACHING HAS BEEN PROVIDED. PT VERBALIZED UNDERSTANDING. NO S/S OF ACUTE DISTRESS, NO SEIZURE WAS OBSERVED DURING THIS SHIFT.
--- NOTE | 2018-01-01 13:30 | NUR ---
PT IS UPSET WITH GOING BACK TO [facility]. SPOKE WITH PT'S FATHER OVER PT'S PHONE. PT'S FATHER IS FINE WITH PT GOING BACK TO [place].
--- NOTE | 2018-01-01 14:05 | NUR ---
PT HAS BEEN PICKED UP BY [facility].
--- NOTE | 2018-01-01 15:30 | NUR ---
Hand Bander Note: Afshin Beltran from [facility] , psychologist follows up with patient at [facility].
--- NOTE | 2018-01-01 15:34 | NUR ---
PHYSICAL THERAPY CO-SIGN The Physical Therapy Progress Notes documented by Cathode Washer have been reviewed. Reviewed/Co-Signed by: Narda Lvoe PT Documentation Done by: BETY CRUZ PTA Addendum: 01/01/18 at 1534 by Narda Love PT Amended: Links added.
[2018-01-02] MEDS ORDERED: DULoxetine 30 MG CAPDR PO SCH (09:00)
== END 2018-01-01 14:00 | DRG 206 ==
LOC: MED 08:14 → MMU 09:57 → MTU 15:20
PROVIDERS: ADMIT General Practice; ATTEND General Practice
DX: M94.0 Chondrocostal junction syndrome [Tietze] (principal); J98.11 Atelectasis; F33.1 Major depressive disorder, recurrent, moderate; I10 Essential (primary) hypertension; G47.33 Obstructive sleep apnea (adult) (pediatric); G25.81 Restless legs syndrome; E03.9 Hypothyroidism, unspecified; E66.9 Obesity, unspecified; S00.83XA Contusion of other part of head, initial encounter; W18.39XA Other fall on same level, initial encounter; M79.7 Fibromyalgia; G89.29 Other chronic pain; F44.5 Conversion disorder with seizures or convulsions; F41.0 Panic disorder [episodic paroxysmal anxiety]; Z68.34 Body mass index [BMI] 34.0-34.9, adult; Z88.4 Allergy status to anesthetic agent; Z88.0 Allergy status to penicillin; Z88.2 Allergy status to sulfonamides; Z88.8 Allergy status to other drugs, medicaments and biological substances; Z79.82 Long term (current) use of aspirin; Z79.1 Long term (current) use of non-steroidal anti-inflammatories (NSAID); Z79.899 Other long term (current) drug therapy; Y93.89 Activity, other specified; Y92.89 Other specified places as the place of occurrence of the external cause; Y99.8 Other external cause status
CPT/HCPCS: 36415; 70450; 71045; 80048; 80053; 83036; 83690; 83735; 83880; 84100; 84436; 84443; 84484; 85025; 85610; 85730; 87081; 93005; 97110; 97116; 97140; 99285; J1200; J1953; J2060; J2270; J2405; J7030; Q0092; Q0163

== ENCOUNTER 2018-01-04 17:49 | Inpatient (IN) | payer OTHER, MEDICAID ==
[~2018-01-04] VITALS: Ht 167.6 cm; Wt 98.4 kg
[~2018-01-04 17:49] MED LIST changes: +ASPI81CT89 PO; -BACL10TA4 PO; -BACTO TP; +BEN50 PO; -CHLO118S2 TP; +CYCL5TAB2 PO; +DULO60EC PO; -ESCI20TA47 PO; -FLUT1DSK2 IH; -FURO20TA8 PO; -LEVE100021 PO; -LEVO0.124 PO; +LISI-424 PO; -LOV40I SUBQ; +MAGN400S60 PO; +METO25TA PO; +MIRABULK PO; +NITR0.4T2 SL; -ROC2I IV; +SYN.05 PO; -[UNRECOGNIZED DRUG - CODE] LEFT EYE
--- NOTE | 2018-01-04 17:49 | NUR ---
Patient BIBA BLS, transferred to bed 9. RN evaluating patient at bedside.
[2018-01-04 17:53] VITALS: BP 150/90
--- NOTE | 2018-01-04 17:54 | NUR ---
Dr. Jeong evaluating patient at bedside.
--- NOTE | 2018-01-04 17:58 | NUR ---
PATRICIA ALS. PATIENT PRESENTS TO ED WITH CHEST PAIN. PT STATES PAIN STARTED LAST NIGHT, DESCRIBES PAIN PRESSURE IN THE MIDDLE OF HER CHEST THAT RADIATES TO BILATERAL ARMS AND LEGS. PATIENT CLAIMS SHE HAS EXPEINCED NAUSEA ON AND OFF; SKIN IS PINK/WARM/DRY; AAOX4; LUNGS CLEAR BL; HR EVEN AND REGULAR; PT CLAIMS SHE HAS HAD FEVER, CP, SOB, AND A NONPRODUCTIVE COUGH TODAY. PATIENT STATES PAIN OF 8/10 AT THIS TIME; VSS; PATIENT POSITIONED FOR COMFORT; HOB ELEVATED; BEDRAILS UP X2; BED DOWN. ER MD MADE AWARE OF PT STATUS.
--- NOTE | 2018-01-04 17:59 | NUR ---
fall wrist band applied as precautionary measure for patient safety. seizure precautions initiated for reported "new onset siezures".
[2018-01-04] MEDS ORDERED: KETOROLAC 30 MG/ML VIAL IVP ONE (18:05)
[2018-01-04] MEDS ORDERED: ASPIRIN 81 MG TAB.CHEW PO ONE (18:05)
[2018-01-04] MEDS ORDERED: NITROGLYCERIN 2% 1 GM PKT TP ONE (18:05)
[2018-01-04 18:33] LABS: HEMATOCRIT 43.8 % (36-48); HEMOGLOBIN 14.4 g/dL (12.0-16.0); MEAN CORPUSCULAR HEMOGLOBIN 28 pg (27-31); MEAN CORPUSCULAR VOLUME 85.5 fL (80-94); RED BLOOD CELL COUNT(AUTO) 5.13 MIL/uL (4.20-5.40); WHITE BLOOD COUNT (AUTO) 10.2 K/uL (4.8-10.8)
[2018-01-04 18:34] LABS: BASOPHILS # (AUTO) 0.6 K/uL (0.00-0.22); EOSINOPHILS # (AUTO) 0.3 K/uL (0-0.4); LYMPHOCYTES # (AUTO) 3.7 K/uL (2.5-16.5); MEAN CORPUSCULAR HGB CONC 33 g/dL (33-37); MONOCYTES # (AUTO) 0.6 K/uL (0.8-1.0); PLATELET COUNT (AUTO) 134 K/uL (140-450); RED CELL DISTRIBUTION WIDTH 13.1 % (11.6-13.7)
[2018-01-04 18:39] LABS: ANION GAP 8.8 (8-16); CARBON DIOXIDE 25.1 mmol/L (21-32); CREATININE 0.5 mg/dL (0.6-1.3); POTASSIUM 3.9 mmol/L (3.5-5.1)
[2018-01-04 18:46] LABS: ALBUMIN 3.6 g/dL (3.4-5.0); TOTAL BILIRUBIN 0.2 mg/dL (0.0-1.0)
--- NOTE | 2018-01-04 18:57 | NUR ---
PT RESTING COMFORTABLY IN HOSPITAL; NASEEM AT THIS TIME W/ VSS, RR EVEN AND UNLABORED, AND SAFETY PRECAUTIONS IN PLACE. WILL CONTINUE TO MONITOR.
[2018-01-04] MEDS ORDERED: ONDANSETRON 4 MG/2 ML VIAL IVP PRN (19:00)
[2018-01-04] MEDS ORDERED: ACETAMINOPHEN 325 MG TAB PO PRN (19:00)
[2018-01-04] MEDS ORDERED: HYDROcodone/APAP 7.5/325 MG 1 TAB PO PRN (19:00)
[2018-01-04] MEDS ORDERED: ZOLPIDEM 5 MG TAB PO PRN (19:00)
--- NOTE | 2018-01-04 19:21 | NUR ---
REPORT GIVEN TO PATSY ESPINAL AT THIS TIME.
--- NOTE | 2018-01-04 19:40 | NUR ---
REPORT RECEIVED FROM ED NURSE. PT IN STABLE CONDITION. AAOX3. INTRODUCED SELF AND BOARD UPDATED. PT ON 2L O2 VIA NC. PT NON AMBULATORY. IV SITE PATENT AND INTACT. SKIN WARM, DRY, AND INTACT WITH NO OPEN WOUNDS. BED LOCKED IN LOW POSITION. CALL HWANG WITHIN REACH.
--- NOTE | 2018-01-04 19:40 | NUR ---
Report given and care transfered to Ivan GARNER. Transfered via frank with vss.
[2018-01-04 20:00] VITALS: BP 132/80
[2018-01-04] MEDS: NACL 0.9% 1,000 ML IV SCH (20:06)
--- NOTE | 2018-01-04 20:06 | NUR ---
MD ORDER NS @100ML/HR THROUGH IV SITE L AC 22G.
[2018-01-04 20:08] LABS: MAGNESIUM 1.6 mg/dL (1.8-2.4); PHOSPHORUS 4.2 mg/dL (2.5-4.9)
[2018-01-04 20:09] LABS: PROTHROMBIN TIME 9.9 secs (10.8-13.4)
--- NOTE | 2018-01-04 20:30 | NUR ---
PT HAVING A SZ. LASTED 3 MINUTES. VS 122/76, HR 72, O2 SAT 100%, AND RR 18.
[2018-01-04] MEDS ORDERED: BEN50 PO (20:34)
[2018-01-04] MEDS ORDERED: DICL100G5 TP (20:34)
[2018-01-04] MEDS ORDERED: ACET-2869 PO (20:34)
[2018-01-04] MEDS ORDERED: CYCL5TAB2 PO (20:34)
[2018-01-04] MEDS ORDERED: TEMA30CA12 PO (20:34)
[2018-01-04] MEDS ORDERED: ACET-1182 PO (20:34)
[2018-01-04] MEDS ORDERED: ASCO500T45 PO (20:34)
[2018-01-04] MEDS ORDERED: diphenhydrAMINE 50 MG CAP PO PRN (20:35)
[2018-01-04] MEDS ORDERED: POLYETHYLENE GLYCOL 17 GM/PKT PO PRN (20:35)
[2018-01-04] MEDS ORDERED: HYDROcodone/APAP 5/325 MG 1 TAB TAB PO SCH (20:35)
[2018-01-04] MEDS ORDERED: PROCHLORPERAZINE 5 MG TAB PO PRN (20:35)
[2018-01-04] MEDS ORDERED: LORazepam 0.5 MG TAB PO PRN (20:35)
[2018-01-04] MEDS ORDERED: NITROGLYCERIN 0.4 MG TAB SL PRN (20:35)
[2018-01-04] MEDS ORDERED: MAGNESIUM HYDROXIDE 2400 MG/30 ML UDC PO PRN (20:35)
[2018-01-04] MEDS ORDERED: ROPINIROLE HCL 2 MG PO SCH (21:00)
[2018-01-04] MEDS ORDERED: CYCLOBENZAPRINE HCL 5 MG PO SCH (21:00)
[2018-01-04] MEDS ORDERED: OXCARBAZEPINE 600 MG PO SCH (21:00)
[2018-01-04] MEDS ORDERED: TEMAZEPAM 30 MG PO SCH (21:00)
[2018-01-04] MEDS ORDERED: METOPROLOL 25 MG TAB PO SCH (21:00)
--- NOTE | 2018-01-04 21:05 | NUR ---
LIPITOR, DOCUSATE, AND METOPROLOL GIVEN. PT TOLERATED WELL.
[2018-01-04] MEDS: ATORVASTATIN 20 MG TAB PO SCH (21:08)
[2018-01-04] MEDS: DOCUSATE SODIUM 100 MG GELCAP PO SCH (21:08)
[2018-01-04] MEDS: METOPROLOL 25 MG TAB PO SCH (21:09)
[2018-01-04] MEDS ORDERED: MAG SULF 2000 MG/WATER PREMIX 50 ML IV SCH (21:20)
--- NOTE | 2018-01-04 21:32 | NUR ---
PT HAVING A SZ. LASTED 3 MINUTES. VS 140/85, HR 79, O2 SAT 96, AND RR 20.
--- NOTE | 2018-01-04 21:53 | NUR ---
PT HAVING ANOTHER SZ. LASTED 2 MINUTES 40 SECONDS. VS 104/53, HR 77, O2 SAT 97, AND RR 18.
--- NOTE | 2018-01-04 22:00 | NUR ---
PT STATES THAT THERE WAS PAIN AT THE IV SITE. L AC 22G DC AT 2155. CANNULA INTACT. NEW IV SITE STARTED AT 2200. LEFT HAND 24G. 2 ATTEMPTS. PT TOLERATED WELL.
--- NOTE | 2018-01-04 22:20 | NUR ---
2G MAG GIVEN THROUGH IV. MAG@1.6. PT TOLERATING WELL.
[2018-01-05] VITALS: BP 98/63
--- NOTE | 2018-01-05 00:55 | NUR ---
TYL GIVEN FOR HEADACHE. PT TOLERATED WELL.
--- NOTE | 2018-01-05 03:00 | NUR ---
PT SLEEPING COMFORTABLY IN BED. NO S/S OF DISTRESS NOTED. WILL CONTINUE TO MONITOR.
[2018-01-05 04:00] VITALS: BP 115/68
--- NOTE | 2018-01-05 04:00 | NUR ---
PT ASKING FOR A MUSCLE RELAXANT. MD HAS IT ORDERED, I CALLED PHARMACY AND THEY SAID MD ORDERED A NON FORMULARY FORM OF THE MEDICATION. MD NOTIFIED. NO CHANGE IN ORDERS.
[2018-01-05] MEDS: LEVOTHYROXINE 0.05 MG TAB PO SCH (05:35)
--- NOTE | 2018-01-05 05:35 | NUR ---
SYNTHROID GIVEN. PT TOLERATED WELL.
[2018-01-05 06:39] LABS: BASOPHILS % (AUTO) 0.5 % (0.0-2.0); EOSINOPHILS # (AUTO) 0.3 K/uL (0-0.4); EOSINOPHILS % (AUTO) 3.8 % (0.0-4.0); HEMATOCRIT 36.2 % (36-48); HEMOGLOBIN 12.5 g/dL (12.0-16.0); LYMPHOCYTES # (AUTO) 4.1 K/uL (2.5-16.5); LYMPHOCYTES % (AUTO) 48.7 % (20.5-51.1); MEAN CORPUSCULAR HEMOGLOBIN 28 pg (27-31); MEAN CORPUSCULAR HGB CONC 35 g/dL (33-37); MEAN CORPUSCULAR VOLUME 82.2 fL (80-94); MONOCYTES # (AUTO) 0.6 K/uL (0.8-1.0); MONOCYTES % (AUTO) 7.4 % (1.7-9.3); NEUTROPHILS # (AUTO) 3.3 K/uL (1.8-7.7); NEUTROPHILS % (AUTO) 39.6 % (42.2-75.2); PLATELET COUNT (AUTO) 109 K/uL (140-450); RED BLOOD CELL COUNT(AUTO) 4.41 MIL/uL (4.20-5.40); RED CELL DISTRIBUTION WIDTH 13.6 % (11.6-13.7); WHITE BLOOD COUNT (AUTO) 8.4 K/uL (4.8-10.8)
[2018-01-05 06:49] LABS: ANION GAP 8.2 (8-16); CARBON DIOXIDE 27.4 mmol/L (21-32); CREATININE 0.5 mg/dL (0.6-1.3); POTASSIUM 3.6 mmol/L (3.5-5.1)
[2018-01-05 06:54] LABS: CHOL/HDL RATIO 2.1 (1-4.5); PHOSPHORUS 4.2 mg/dL (2.5-4.9)
--- NOTE | 2018-01-05 07:25 | NUR ---
REPORT GIVEN TO AM NURSE. PT IN STABLE CONDITION.
--- NOTE | 2018-01-05 07:30 | NUR ---
REPORT RECEIVED FROM APPLIED MARINE PHYSICS PROFESSOR NURSE. PT IN STABLE CONDITION. AAOX3. PT SATURATING WELL ON 2L NC. PT NON AMBULATORY. IV SITE PATENT AND INTACT, RUNNING IVF PER MD ORDERS. SKIN WARM, DRY, AND INTACT WITH NO OPEN WOUNDS. ALL SAFETY PRECAUTIONS IN PLACE. SEIZURES PRECAUTIONS IN PLACE. BED LOCKED IN LOW POSITION. CALL HWANG WITHIN REACH. WILL ORDER SCD FOR PT.
--- NOTE | 2018-01-05 07:33 | NUR ---
PATIENT HAS BEEN SCREENED AND CATEGORIZED MODERATE NUTRITION RISK. PATIENT WILL BE SEEN WITHIN 3-5 DAYS OF ADMISSION. 01/07/18 01/09/[address]
[2018-01-05 08:00] VITALS: BP 119/78
[2018-01-05] MEDS: DOCUSATE SODIUM 100 MG GELCAP PO SCH ×2 (08:41→21:02)
[2018-01-05] MEDS: GABAPENTIN 300 MG CAP PO SCH (08:41)
[2018-01-05] MEDS: CYCLOBENZAPRINE 10 MG TAB PO SCH ×2 (08:42→21:02)
[2018-01-05] MEDS: MONTELUKAST SODIUM 10 MG TAB PO SCH (08:43)
[2018-01-05] MEDS: LISINOPRIL 5 MG TAB PO SCH (08:44)
[2018-01-05] MEDS: ASCORBIC ACID 500 MG TAB PO SCH (08:44)
[2018-01-05] MEDS: METOPROLOL 25 MG TAB PO SCH ×2 (08:44→21:02)
[2018-01-05] MEDS: OXcarbazepine 150 MG TAB PO SCH ×2 (08:45→21:01)
[2018-01-05] MEDS: ASPIRIN 81 MG TAB.CHEW PO SCH (08:45)
[2018-01-05] MEDS: NACL 0.9% 1,000 ML IV SCH ×3 (08:49→17:58)
[2018-01-05] MEDS ORDERED: DICLOFENAC SODIUM 100 GM TP SCH (09:00)
[2018-01-05] MEDS ORDERED: DULoxetine 30 MG CAPDR PO SCH (09:00)
--- NOTE | 2018-01-05 10:15 | NUR ---
PATIENT HAVING SEIZURE. BP 141/89, HR 72, O2 SAT 99%. HAVE NOTIFIED DR. RUGGIERO TO CHANGE PO ATIVAN TO IVP ATIVAN. WILL CONTINUE TO MONITOR PT AND ADMINISTER ATIVAN IVP WHEN AVAILABLE AND INDICATED.
--- NOTE | 2018-01-05 10:15 | NUR ---
PATIENT EXPERIENCING SEIZURE. LASTED 2 MINUTES. EXTREMITIES ARE CONTRACTED. BP 141/89, HR 72, SPO2 99%. PATIENT REPORTS NO PAIN OR DISCOMFORT AFTER SEIZURE.
[2018-01-05] MEDS ORDERED: LORazepam 0.5 MG TAB PO PRN (10:23)
[2018-01-05] MEDS ORDERED: MAGNESIUM HYDROXIDE 2400 MG/30 ML UDC PO PRN (10:25)
[2018-01-05] MEDS ORDERED: POLYETHYLENE GLYCOL 17 GM/PKT PO PRN (11:03)
[2018-01-05 12:00] VITALS: BP 107/62
[2018-01-05] MEDS: LORazepam 2 MG/ML VIAL IM/IVP PRN ×4 (12:08→21:00)
--- NOTE | 2018-01-05 12:08 | NUR ---
PATIENT EXPERIENCING SEIZURE. LASTED 1 AND HALF MINUTES. EXTREMITIES ARE CONTRACTED. ATIVAN IVP GIVEN. VITALS AFTER ATIVAN IVP ARE BP 107/62, HR 77, SPO2 98%. PATIENT REPORTS NO PAIN OR DISCOMFORT AFTER SEIZURE.
--- NOTE | 2018-01-05 12:08 | NUR ---
ATIVAN IVP ADMINISTERED FOR SEIZURE. SEIZURE LASTED 1.5 MINUTES. VITALS STABLE AFTER SEIZURE.
--- NOTE | 2018-01-05 13:00 | NUR ---
PT REPORTS NO SEIZURES AND STAFF DID NOT SEE ANY SEIZURES SINCE ATIVAN IVP GIVEN ONE HOUR AGO. WILL CONTINUE TO MONITOR. ALL SAFETY PRECAUTIONS IN PLACE.
[2018-01-05 16:00] VITALS: BP 147/78
--- NOTE | 2018-01-05 16:00 | NUR ---
PATIENT EXPERIENCING SEIZURE. LASTED 2.5 MINUTES. EXTREMITIES ARE CONTRACTED. BP 147/78, HR 64, SPO2 100%. PATIENT REPORTS NO PAIN OR DISCOMFORT AFTER SEIZURE.
--- NOTE | 2018-01-05 16:04 | NUR ---
PT REFUSING YELLOW SOCKS. ALL OTHER SAFETY PRECAUTIONS IN PLACE. YELLOW STAR SIGN AND YELLOW GOWN IN PLACE. BED IN LOWEST POSITION, BED ALARM ON. CALL LIGHT WITHIN REACH. FREQUENT ROUNDING.
--- NOTE | 2018-01-05 16:47 | NUR ---
Adjustment Examiner Note: Per admission coordinator Delicia from [facility] (SNF) , patient refused 7 day bed hold and stated she did not want to return to that facility. Delicia stated patient's sister Edgar Abbott is planning to go to [facility] tomorrow and sisal picker patient's belongings. I called and spoke with Edgar (patient's secondary power of wing mailer machine operator agent, Advance Directive documents are in patient's medical chart). She stated their father Earle Hernandez (patient's primary power of wing mailer machine operator agent has been experiencing memory loss and is unable to participate in patient's discharge plan. Edgar requested assistance with finding a retirement facility for patient in the area of [place], [place]. She stated patient would like to be closer to their father Earle, Earle lives in [place]. Edgar requested for me to contact snfs located in [place], [place] including [facility], phone number , fax number . She stated patient will be fci at snf. I explained to her that at times fci beds at snfs are limited and also might have to be contracted with patient's health insurance. She verbalized understanding. I faxed inquiry to both [facility] and [facility], phone number , fax number . Addendum: 01/05/18 at 1701 by Sienna LOPEZ made aware patient and patient's sister Edgar requested assistance with finding a snf located around [place] and don't want to return to [facility] upon discharge.
[2018-01-05] MEDS ORDERED: BISACODYL 10 MG SUPP RC SCH (18:00)
--- NOTE | 2018-01-05 18:36 | NUR ---
ATIVAN IVP GIVEN FOR ANXIETY. WILL CONTINUE TO MONITOR.
--- NOTE | 2018-01-05 19:17 | NUR ---
ENDORSED PLAN OF CARE TO AREA FIELD PERSON RN AT BEDSIDE. PT IN STABLE CONDITION.
--- NOTE | 2018-01-05 19:29 | NUR ---
PT SLEEPING IN BED, ONE HOUR AFTER ATIVAN IVP ADMINISTRATION.
--- NOTE | 2018-01-05 19:30 | NUR ---
REPORT RECEIVED FROM AM NURSE AT BEDSIDE. PT IN STABLE CONDITION. AAOX3. INTRODUCED SELF TO PT AND BOARD UPDATED. IV SITE INTACT BUT SWOLLEN. WILL INSERT NEW IV. SKIN WARM, DRY, AND INTACT WITH NO OPEN WOUNDS. SEIZURE PRECAUTIONS IN PLACE. PT HAS 02 AT 2L VIA NC BUT PRESENTLY NOT APPLIED. BED LOCKED IN LOW POSITION. CALL HWANG WITHIN REACH.
[2018-01-05 20:00] VITALS: BP 108/72
--- NOTE | 2018-01-05 20:13 | NUR ---
ATIVAN GIVEN FOR PSEUDOSEIZURE. PT TOLERATED WELL.
[2018-01-05] MEDS ORDERED: rOPINIRole 1 MG TAB PO SCH (21:00)
--- NOTE | 2018-01-05 21:00 | NUR ---
COLACE, FLEXERIL, LOPRESSOR, TRILEPTIL, LIPITOR, ROPINIROLE GIVEN PO. ATIVAN GIVEN FOR PSEUDOSEIZURE IM. PT TOLERATED WELL.
[2018-01-05] MEDS: ATORVASTATIN 20 MG TAB PO SCH (21:02)
--- NOTE | 2018-01-05 21:29 | NUR ---
NORCO GIVEN FOR GENERALIZED PAIN. PT TOLERATED WELL.
--- NOTE | 2018-01-05 22:30 | NUR ---
PT FEELING NAUSEA. ZOFRAN GIVEN. PT TOLERATED WELL.
[2018-01-06] VITALS: BP 104/48
--- NOTE | 2018-01-06 02:00 | NUR ---
PT SLEEPING COMFORTABLY IN BED. NO S/S OF DISTRESS. WILL CONTINUE TO MONITOR.
[2018-01-06 04:00] VITALS: BP 85/50
--- NOTE | 2018-01-06 04:00 | NUR ---
PT AWAKE. ATTEMPTED TO GET UP BECAUSE SHE WANTED TO GO TO THE RESTROOM. GOT HER A BEDSIDE COMMODE. PT ABLE TO STAND UP AND PIVOT TO THE COMMODE. SAFELY BACK IN BED.
[2018-01-06] MEDS: LEVOTHYROXINE 0.05 MG TAB PO SCH (05:42)
--- NOTE | 2018-01-06 05:42 | NUR ---
SYNTHROID GIVEN. PT TOLERATED WELL.
[2018-01-06 06:52] LABS: BASOPHILS # (AUTO) 0.1 K/uL (0.00-0.22); BASOPHILS % (AUTO) 0.6 % (0.0-2.0); EOSINOPHILS # (AUTO) 0.2 K/uL (0-0.4); EOSINOPHILS % (AUTO) 2.2 % (0.0-4.0); HEMATOCRIT 39.2 % (36-48); LYMPHOCYTES # (AUTO) 4.5 K/uL (2.5-16.5); LYMPHOCYTES % (AUTO) 47.4 % (20.5-51.1); MEAN CORPUSCULAR HEMOGLOBIN 28 pg (27-31); MEAN CORPUSCULAR HGB CONC 33 g/dL (33-37); MEAN CORPUSCULAR VOLUME 84.8 fL (80-94); MONOCYTES # (AUTO) 0.5 K/uL (0.8-1.0); NEUTROPHILS # (AUTO) 4.3 K/uL (1.8-7.7); NEUTROPHILS % (AUTO) 44.8 % (42.2-75.2); PLATELET COUNT (AUTO) 115 K/uL (140-450); RED BLOOD CELL COUNT(AUTO) 4.63 MIL/uL (4.20-5.40); RED CELL DISTRIBUTION WIDTH 14.1 % (11.6-13.7); WHITE BLOOD COUNT (AUTO) 9.6 K/uL (4.8-10.8)
--- NOTE | 2018-01-06 07:10 | NUR ---
REPORT GIVEN TO AM NURSE. PT IN STABLE CONDITION.
--- NOTE | 2018-01-06 07:12 | NUR ---
RECEIVED SBAR REPORT FROM NIGHT RN AT PT BEDSIDE. PATIENT IS ASLEEP, EASILY AWAKENS. DROWSY. FOLLOWS SIMPLE COMMANDS. IV SITE PATENT AND INTACT. DENIES CHEST PAIN. NO ACUTE RESPIRATORY DISTRESS NOTED. FALL PRECAUTIONS IN PLACE. BED ALARMS CHECKED. BED IN LOWEST POSITION. SEIZURE PRECAUTIONS NOTED. BED RAILS PADDED. CALL LIGHT WITHIN REACH.
[2018-01-06 07:13] LABS: CARBON DIOXIDE 27.2 mmol/L (21-32); CREATININE 0.4 mg/dL (0.6-1.3); POTASSIUM 4.2 mmol/L (3.5-5.1)
[2018-01-06 07:21] LABS: MAGNESIUM 1.9 mg/dL (1.8-2.4); PHOSPHORUS 4.4 mg/dL (2.5-4.9)
[2018-01-06] MEDS: LORazepam 2 MG/ML VIAL IM/IVP PRN ×5 (07:40→14:30)
--- NOTE | 2018-01-06 07:40 | NUR ---
PATIENT SEEN IN BED SHAKING, NON RESPONSIVE. ATIVAN GIVEN FOR PSEUDOSEIZURE. PATIENT RESTING, NO ACUTE DISTRESS NOTED, PATIENT RESPONSIVE. ALERT AND RESPONSIVE. VITALS TAKEN, WNL.
[2018-01-06 08:00] VITALS: BP 113/87
[2018-01-06] MEDS ORDERED: ACET-2869 PO (08:00)
[2018-01-06] MEDS ORDERED: DULO60EC PO (08:00)
[2018-01-06] MEDS ORDERED: DULoxetine 30 MG CAPDR PO SCH (09:00)
[2018-01-06] MEDS: DOCUSATE SODIUM 100 MG GELCAP PO SCH (09:03)
[2018-01-06] MEDS: CYCLOBENZAPRINE 10 MG TAB PO SCH (09:03)
[2018-01-06] MEDS: MONTELUKAST SODIUM 10 MG TAB PO SCH (09:03)
[2018-01-06] MEDS: ASPIRIN 81 MG TAB.CHEW PO SCH (09:03)
[2018-01-06] MEDS: ASCORBIC ACID 500 MG TAB PO SCH (09:04)
[2018-01-06] MEDS: METOPROLOL 25 MG TAB PO SCH (09:04)
[2018-01-06] MEDS: GABAPENTIN 300 MG CAP PO SCH (09:04)
[2018-01-06] MEDS: OXcarbazepine 150 MG TAB PO SCH (09:04)
[2018-01-06] MEDS: LISINOPRIL 5 MG TAB PO SCH (09:05)
--- NOTE | 2018-01-06 09:34 | NUR ---
Automotive Product Engineer Note: Assisted Facility follow up: Per infection control coordinator Mini from [facility], phone number , fax number , they do not have any beds available at this time, she is unsure when they will. Per infection control coordinator Yesy from [facility], phone number , fax number , their business office will check patient's health insurance eligibility benefits and call me back in about 1 hour today. Yesy is aware patient will need care home placement.
--- NOTE | 2018-01-06 10:20 | NUR ---
PATIENT TOLERATED AM MEALS, RESTING IN BED. ALERT AND ORIENTED. DENIES DISCOMFORT.
--- NOTE | 2018-01-06 10:49 | NUR ---
Half-Way Facility follow up: Per event coordinator marketing and sales Yesy from [facility], phone number , fax number , they don't have any beds available at this time, unable to accept patient. Per Samm from [facility] , no longterm beds available at this time, unable to accept.
[2018-01-06] MEDS: NACL 0.9% 1,000 ML IV SCH (11:25)
--- NOTE | 2018-01-06 11:35 | NUR ---
PATIENT SEEN SITTING UP AT BEDSIDE, STATES EXERCISING LEGS. PATIENT SEEN MOVING LEGS UP AND DOWN. PATIENT EDUCATED ON FALL PRECAUTIONS, BEDSIDE TABLE PLACED FOR PATIENT. ALERT AND ORIENTED.
--- NOTE | 2018-01-06 11:42 | NUR ---
RESPONDED TO PATIENT CALL LIGHT. PATIENT SEEN SITTING UP AT BEDSIDE. DOES NOT RESPOND TO SIMPLE COMMANDS. PATIENT LAID ON BED, PATIENT SEEN SHAKING AND NON RESPONSIVE, EYES LOOKING UP. MEDICATED ORDERED WITH ATIVAN IVP. PATIENT SEEN BY PCP AT BEDSIDE. PATIENT RESPONSIVE TO QUESTIONS AFTER ATIVAN ADMINISTRATION. Addendum: 01/06/18 at 1330 by Dominic Monique RN VITAL SIGNS TAKEN AT BEDSIDE. WNL.
--- NOTE | 2018-01-06 11:54 | NUR ---
Rustic Fence Builder Note: Per Nathalie from [facility], phone number , fax number , they are checking patient's health insurance eligibility benefits and will call me back in about 30 minutes. Per Dave from [facility], phone number , fax number , they will review inquiry and call me back. Addendum: 01/06/18 at 1318 by Sienna LOPEZ Per Nathalie from [facility], phone number , fax number , no beds available at this time, unable to accept.
[2018-01-06 12:00] VITALS: BP 116/70
--- NOTE | 2018-01-06 12:40 | NUR ---
PATIENT ALERT AND ORIENTED. PATIENT ASSISTED TO BEDSIDE COMMODE. NO ACUTE DISTRESS NOTED.
--- NOTE | 2018-01-06 13:05 | NUR ---
Oxygen Furnace Operator Note: I faxed inquiry to [facility], phone number , fax number .
--- NOTE | 2018-01-06 13:39 | NUR ---
PATIENT SEEN CONTRACTED UPPER EXTREMITIES, EYES WIDE OPEN. TEETH CLENCHING. DOES NOT RESPOND TO QUESTIONS. MEDICATED ORDERED WITH ATIVAN IVP, PATIENT RELAXED AT THIS TIME, NO ACUTE DISTRESS NOTED. DR. RUGGIERO MADE AWARE, NO NEW ORDERS.
--- NOTE | 2018-01-06 14:13 | NUR ---
PATIENT SEEN HAVING SEIZURELIKE ACTIVITY. EXTREMITIES CLENCHED. PATIENT ABLE TO ANSWER QUESTIONS, STATES BEING SCARED. PATIENT MEDICATED WITH ATIVAN IVP. PATIENT SEEN RESTING INTERMITTENTLY AT THIS TIME.
--- NOTE | 2018-01-06 14:32 | NUR ---
PATIENT SEEN HAVING SPASMS. PATIENT C/O "SEIZURES THAT WON'T STOP". PATIENT MEDICATED ORDERED WITH ATIVAN IVP. PATIENT SLEEPING, NO ACUTE DISTRESS NOTED. VITALS WNL.
--- NOTE | 2018-01-06 14:43 | NUR ---
Tungsten Refiner Note: Per Harjinder from [facility], phone number , they can accept patient today, he is aware patient will be care home, room 36, accepting physician is , aware. I called patient's sister Edgar to inform her patient has been accepted at [facility], no answer, left message.
--- NOTE | 2018-01-06 14:56 | NUR ---
CM NOTE PER CHARGE NURSE TOMAS PATIENT CAN GO [facility]. PER MERI [facility] PATIENT WILL BE PICKED BE UP AT 6:30PM GOING TO [facility]. MAG GARNER AWARE.
--- NOTE | 2018-01-06 15:51 | NUR ---
Sales Enablement Lead Note: I received a call from patient's sister Edgar , she stated she is in agreement with patient's transfer to [facility] today, I provided her with [facility] address and phone number. Addendum: 01/06/18 at 1556 by Sienna Hurley SS I earline Grande from [facility] , patient's berry picker machine operator time is 6:30pm
[2018-01-06 16:00] VITALS: BP 120/61
[2018-01-06 16:33] VITALS: BP 120/61
--- NOTE | 2018-01-06 16:59 | NUR ---
SBAR REPORT GIVEN TO PATSY SPARKS AT PT BEDSIDE. PATIENT SITTING UP, EATING SNACKS. NO ACUTE DISTRESS NOTED. REPORT CALLED TO [facility]. PATIENT AND FAMILY MADE AWARE OF TRANSFER TODAY, IN AGREEMENT.
--- NOTE | 2018-01-06 17:00 | NUR ---
PATIENT RECEIVED FROM PATSY HATHAWAY.
[2018-01-06] MEDS ORDERED: LORazepam 2 MG/ML VIAL IVP SCH (19:30)
--- NOTE | 2018-01-06 19:39 | NUR ---
PATIENT PICKED UP BY [facility] TO BE TRANSFERRED TO [facility]. PATIENT LEFT WITH ALL HER BELONGINGS AND DISCHARGE PAPERS. IV LINE DISCONTINUED. TELE MONITOR TAKEN OFF. PATIENT LEFT IN STABLE CONDITION
== END 2018-01-06 19:35 | DRG 206 ==
LOC: MED 17:49 → MTU 19:12
PROVIDERS: ADMIT General Practice; ATTEND General Practice
DX: M94.0 Chondrocostal junction syndrome [Tietze] (principal); E87.1 Hypo-osmolality and hyponatremia; J98.11 Atelectasis; E83.42 Hypomagnesemia; F32.9 Major depressive disorder, single episode, unspecified; E03.9 Hypothyroidism, unspecified; F44.5 Conversion disorder with seizures or convulsions; G25.81 Restless legs syndrome; M79.7 Fibromyalgia; G47.00 Insomnia, unspecified; E87.8 Other disorders of electrolyte and fluid balance, not elsewhere classified; F41.1 Generalized anxiety disorder; G47.33 Obstructive sleep apnea (adult) (pediatric); I11.9 Hypertensive heart disease without heart failure; T43.215A Adverse effect of selective serotonin and norepinephrine reuptake inhibitors, initial encounter; T42.1X5A Adverse effect of iminostilbenes, initial encounter; T45.0X5A Adverse effect of antiallergic and antiemetic drugs, initial encounter; D69.59 Other secondary thrombocytopenia; E66.9 Obesity, unspecified; Z88.4 Allergy status to anesthetic agent; Z88.1 Allergy status to other antibiotic agents; Z88.0 Allergy status to penicillin; Z88.2 Allergy status to sulfonamides; Z88.8 Allergy status to other drugs, medicaments and biological substances; Z79.1 Long term (current) use of non-steroidal anti-inflammatories (NSAID); Z79.82 Long term (current) use of aspirin; Z79.899 Other long term (current) drug therapy; Z87.01 Personal history of pneumonia (recurrent); Z68.35 Body mass index [BMI] 35.0-35.9, adult; Y92.89 Other specified places as the place of occurrence of the external cause
CPT/HCPCS: 36415; 71045; 80048; 80053; 82150; 83690; 83735; 83880; 84100; 84484; 85025; 85610; 85730; 87081; 93005; 96374; 99285; J1885; J2060; J2405; J3475; J7030; Q0092

== ENCOUNTER 2018-01-07 01:43 | Emergency (ER) | payer OTHER, MEDICAID ==
[~2018-01-07] VITALS: Ht 167.6 cm; Wt 98.4 kg
[~2018-01-07 01:43] MED LIST changes: -ACET-2869 PO; -BEN50 PO
--- NOTE | 2018-01-07 01:45 | NUR ---
PT TO ER BED 3.
--- NOTE | 2018-01-07 02:00 | NUR ---
PT BIBA FOR SEIZURES. PER [facility] PT WAS AT FACILITY AND C/O LOWER BACK PAIN TO STAFF THEN STARTED TO HAVE SEIZURE LIKE ACTIVITY. PT WAS SEEN YESTERDAY AT [place] FOR LOWER BACK PAIN AND RECENTLY ADMITTED AT [facility] FOR C/P AND LOWER BACK INJURY. PER [facility] PT REQUESTED TO COME TO [facility]. PT IS AWAKE AND ALERT ON ARRIVAL.
[2018-01-07 02:08] VITALS: BP 120/103
--- NOTE | 2018-01-07 02:10 | NUR ---
PT HAVING SEIZURE LIKE ACTIVITY IN BED, PT STILL SPEAKING AND ABLE TO ANSWER QUESTIONS. VSS.
--- NOTE | 2018-01-07 02:37 | NUR ---
DR GARCIA AT BEDSIDE EVALUATING PT.
[2018-01-07] MEDS ORDERED: KETOROLAC 60 MG/2 ML VIAL IM ONE (02:45)
--- NOTE | 2018-01-07 03:00 | NUR ---
PT STATES SHE WANTS A NEW DOCTOR AND TO TALK TO MANAGER OF DISASTER RECOVERY. HOUSE SUP. NOTIFIED, CHARGE NURSE NOTIFIED.
--- NOTE | 2018-01-07 03:18 | NUR ---
HOUSE SUP AT BEDSIDE TALKING TO PT.
--- NOTE | 2018-01-07 04:05 | NUR ---
[facility] TO TRANSPORT PT BACK TO FACILITY ETA 20MIN.
[2018-01-07 04:30] VITALS: BP 128/71
--- NOTE | 2018-01-07 04:30 | NUR ---
Patient discharged with v/s stable. Written and verbal after care instructions given and explained. Patient alert, oriented and verbalized understanding of instructions. Ambulance Transport with to snf. All questions addressed prior to discharge. ID band removed. Patient advised to follow up with PMD. Rx of MOTRIN given. Patient educated on indication of medication including possible reaction and side effects. Opportunity to ask questions provided and answered.
--- NOTE | 2018-01-07 04:35 | NUR ---
[facility] TO FACILITY W/ PT , PT STABLE CONDITION.
== END 2018-01-07 04:30 | disposition home or self-care (01) ==
LOC: MED 01:43
DX: R56.9 Unspecified convulsions (principal); M54.5 Low back pain; I10 Essential (primary) hypertension; Z88.0 Allergy status to penicillin; Z88.1 Allergy status to other antibiotic agents; Z88.2 Allergy status to sulfonamides; Z88.6 Allergy status to analgesic agent; Z88.8 Allergy status to other drugs, medicaments and biological substances; Z79.899 Other long term (current) drug therapy
CPT/HCPCS: 96372; 99283; J1885